=== PATIENT | male | born 1950 | race Caucasian/White ===

== ENCOUNTER 2021-03-02 08:20 | Outpatient (REF) | payer MEDICARE, SELFPAY ==
--- OUTSIDE RECORDS SUMMARY | 2021-03-03 08:25 | XMS_ITS ---
:1950 Author Organization [facility] Address [address] [place] [address] Care Team Providers Name Role Phone Manuel Unavailable Unavailable PROBLEMS Type Condition ICD9-CM Code [id number] Onset Condition SNOMED Code Code Dates Status Problem Hammer toe of M20.42 Active 681901 [id number] left foot ALLERGIES No Known Allergies ENCOUNTERS Encounter Location Date Diagnosis [facility] Feb, Hamme r toe of left [place] M20.[address] [place] [address] and [facility] [place] [facility] corn or callous L84 [facility] [address] [facility], [place] [address] [facility] [address] [facility], Aug, Hyper keratosis 701.1 ; [place] [address] PAIN 729.5 ; Pes planovalgus, congenital 754.6 9 and Tinea pedis 110.4 [facility] [address] [facility], Jun, Hyper keratosis 701.1 ; [place] [address] PAIN 729.5 and P es planovalgus, congenital 754.6 9 IMMUNIZATIONS No Known Immunizations SOCIAL HISTORY Qualifiers Date Former Smoker 10/02/2005 REASON FOR REFERRAL FUNCTIONAL STATUS PLAN OF CARE Activity Details Follow Up 3 Months Reason: VITAL SIGNS Height 66 in 2019 Weight 211.8 lbs 2019 BMI 34.18 kg/m2 2019 Temperature 98.6 degrees Fahrenheit 2019 Heart Rate 69 /min 2019 Respiratory Rate 16 /min 2019 Oximetry 97 % 2019 Blood pressure systolic 130 mm Hg 2019 Blood pressure diastolic 88 mm Hg 2019 MEDICATIONS Medication Instructions Dosage Frequency Start End Duration Statu s Date Date Mupirocin 2 % Externally Three 1 application 8h 5 d ay(s) Active times a day to affected area PROCEDURES No Known procedures RESULTS No Results REASON FOR VISIT 3 month f/u, referral done PT [facility] 04/27, ingrown toenail referral done, last seen by 08/11/07 for f/u on foot pain, referral from Dr.David Suárez , pt states he is here for an ingrown toenail left 4thtoenail , pt states this has been soor for awhile , pt states it has gotten to the point where it doesnt hurt as much now , update chart, f/u foot pain, pain imporoving quite a bit better has a rash using Hydrocortisone on it, foot pain/ramirez kvng per dr mitchell Insurance Providers [facility] Member Patient Patient Patient Patient Patient Subscriber Subscriber Subscriber Group Insurance Plan Plan Plan Plan ID Relationship Address Phone Name Date of ID Name Date of No Type Insurance Insurance Insurance Coverage to Subscriber Address Phone Name Dates MEDICARE 3000 GOFFS MEDICARE self KARLENE 1950 [id number] [facility] [id number] SELF PAY [address] SELF PAY self KARLENE 1950 [place] [address] MEDICARE MEDICAL (GENERAL) HISTORY Type Description Date Medical History ingrown toenail Medical History hyperlipidemia Medical History GERD Medical History arrett's esophagus Medical History hypothyroidism Surgical History colonoscopy Surgical History dental procedure
== END 2021-03-02 08:21 | disposition home or self-care (01) ==
LOC: LBN 08:20
PROVIDERS: PCP Family Medicine; Visit Provider Physician Assistant Medical
DX: L03.011 Cellulitis of right finger (principal)
CPT/HCPCS: 87070; 87205

== ENCOUNTER 2022-12-19 02:03 | Outpatient (CLI) | payer MEDICARE, SELFPAY ==
--- NOTE | 2022-12-19 15:00 | DI.US_ITS ---
APPROVED REPORT EXAM: Comprehensive 2D, Doppler, and color-flow Echocardiogram Patient Location: Out-Patient Recycling Coordinator: Lakshmi Stern RDCS (AE) Indications: high risk medication use, current chemo Other Information Study Quality: Adequate Conclusion Normal left ventricular wall thickness and chamber size. Estimated ejection fraction is 55 to 60%. Wall motion is normal Normal right ventricular size and systolic function Both atria are normal in size There is no structural or hemodynamically significant valvular disease Normal estimated right ventricular systolic pressure 16 mmHg Wall motion Left Ventricle The left ventricle is normal size. The left ventricular systolic function is normal. The left ventric ular ejection fraction is within the normal range. There is normal left ventricular wall thickness. T here is normal LV segmental wall motion. There is no ventricular septal defect visualized. LVEF is 56 %. Right Ventricle The right ventricle is normal size. The right ventricular systolic function is normal. Atria The left atrium size is normal. The right atrium size is normal. The RVSP is 16.1 mmHg. The interatri al septum is intact with no evidence for an atrial septal defect. Aortic Valve The aortic valve is normal in structure. Aortic valve is trileaflet. There is no aortic valvular sten osis. No aortic regurgitation is present. Mitral Valve The mitral valve is normal in structure. No evidence of mitral valve stenosis. Mild mitral regurgitat ion. Tricuspid Valve The tricuspid valve is normal in structure. There is no tricuspid valve stenosis. Trace tricuspid reg urgitation. Pulmonic Valve The pulmonary valve is normal in structure. There is no pulmonic valvular stenosis. Trace pulmonic re gurgitation. Great Vessels The aortic root is normal in size. The ascending aorta is normal in size. IVC is normal in size and c ollapses >50% with inspiration. Pericardium There is no pericardial effusion. 2D Dimensions IVSD d PLAX 0.92 cm M: 0.6-1.2 LV Vol A2C d MOD 121.3 mL LVPW d PLAX 0.92 cm M: 0.6 - 1.2 LV Vol A4C d MOD 78.1 mL LVID d PLAX 4.98 cm M: 4.2 - 5.8 LA vol/ BSA A4C s A-L 14.5 mL/m2 LVDs 3.55 cm M: 2.5 - 4.0 LA Area A4C s MOD 11.20 cm2 Ao Root d 3.39 cm M: 3.1 - 3.7 LV EF A4C MOD 57.8 % Ao Asc Diam d 3.48 cm M: 2.6 - 3.4 LV EF A2C MOD 55.8 % LV EF Teichholz 54.6 % LV EF Biplane MOD 54.5 % LVEF (Thakkar's) 54.50 % M: 52 - 72 SV 54.90 mL LV Volume 78.36 mL M: 62 - 150 SV Index 30.52 mL/m2 LV Volume Index 43.53 mL/m2 M: 34 - 74 LV Vol Biplane MOD 100.7 mL FS 28.35 % M-Mode TAPSE 1.43 cm (M/F) >1.7 LV Diastology MV E' medial 0.042 (>0.07 m/s) E/A Ratio 0.9 LV E/e MED 11.70 (<14) MV E Vmax 0.49 (0.4-1.3 m/s) MV E' lateral 0.075 (>0.1 m/s) MV A Vmax 0.55 (0.4-1.3 m/s) LV E/e LAT 6.50 (<14) MV E/A Ratio 0.83 MV E/E' medial 11.71 MV E/E' lateral 6.53 Aortic Valve LVOT Area 3.61 cm2 AoV Area Vmax 3.07 cm2 LVOT Vmax 0.92 m/s AoV Area/ BSA (Vmax) 1.71 cm2/m2 LVOT Mean Perry. 0.60 m/s LISBET Mean Perry. 2.94 cm2 LVOT Peak Grad 3.4 mmHg LISBET Mean Perry. Index 1.63 cm2/m2 LVOT Mean Grad 1.7 mmHg LVOT VTI 0.188 m LVOT Diam s 2.10 cm AoV Vmax 1.08 m/s Velocity Ratio 0.85 AoV Mean Perry. 0.74 m/s AoV Peak Grad 4.7 mmHg LVOT SV 67.80 mL AoV Mean Grad 2.5 mmHg AoV VTI 0.183 m AoV Area VTI 3.70 cm2 AoV Area/ BSA (VTI) 2.05 cm/m2 Mitral Valve MV DT 307 (160-240 msec) MV PHT 89 msec MV Area PHT 2.47 cm2 Pulmonary Valve PV Vmax 1.16 (0.5-1.5 m/s) RVOT Peak Gr. 1.59 mmHg PV Peak Grad 5.4 mmHg RVOT Mean Gr. 0.70 mmHg PV Mean Grad 2.4 mmHg RVOT VTI 0.122 m PV VTI 0.202 m RVOT Vmax 0.63 m/s Tricuspid Valve TR Peak Grad 13.0 mmHg TR Vmax 1.81 m/s RA Pressure 3.00 mmHg RVSP (TR) 16.1 mmHg
== END 2022-12-19 02:23 ==
LOC: DI 02:04
PROVIDERS: PCP Family Medicine; Visit Provider Internal Medicine Hematology & Oncology
DX: Z79.899 Other long term (current) drug therapy (principal)
CPT/HCPCS: 93306

== ENCOUNTER 2022-12-24 17:21 | Emergency (ER) | payer MEDICARE, SELFPAY ==
[2022-12-24 17:30] VITALS: BP 122/71; PULSE 100; RESP 18; TEMP 37.4; O2SAT 96
--- NOTE | 2022-12-24 17:30 | RT.EKG_ITS ---
APPROVED REPORT Exam: Resting ECG Reason for Exam: fever Patient Location: E HR:95 bpm ECG Measurements Heart Rate 95 AXIS MN 173 P 4 QRSd 91 QRS -28 QT 337 T 32 QTc 424 Conclusion Sinus rhythm...normal P axis, V-rate 60- 99
--- NOTE | 2022-12-24 17:30 | DI.RAD_ITS ---
Exam(s) XR PORTABLE CHEST AP EXAM: XR PORTABLE CHEST AP CLINICAL HISTORY: fever. TECHNIQUE: 2D digital imaging was performed. COMPARISON: No exams were available for comparison FINDINGS: Single AP portable view. Distal tip of the right-sided Port-A-Cath is in the right atrium. Heart size is upper normal. The mediastinum is not widened. There are increased markings throughout both lung holliday but no air bronchograms. No pleural effusio ns. No pulmonary edema. No pneumothorax. No pulmonary nodules evident. IMPRESSION: Increased markings throughout both lung holliday no confluent infiltrates evident. No pleural effusion s. Recommend nonportable PA and lateral views when clinically possible. DATA REPOSITORY: RADIATION DOSE DELIVERED:
--- NOTE | 2022-12-24 17:42 | ED.GENADUL_ITS ---
Discharge Plan Disposition Patient Disposition: Home Condition: Improving Discharge Details Clinical Impression: Fever Primary Care Provider: Williams Suárez ED Provider: Harjinder Hand Meds and New Rx's Prescriptions: Continued zolpidem [Ambien] 10 mg Tablet 10 mg PO HS ondansetron 4 mg Tablet,Disintegrating 4 mg PO DAILY oxycodone 5 mg Tablet 5 mg PO PRN PRN Discharge Instructions Instructions: Fever in Adults (ED) Discharge Data Discharge Date/Time-TO BE ENTERED AT DEPARTURE: 12/24/22 20:17 Discharge Physician: Harjinder Hand Medical Decision Making ECG Data Attestation: I personally reviewed and interpreted this ECG (s) as follows: (No infiltrate) Prior ECG tracings: available for review MDM Narrative Medical decision making narrative: Patient presents to the emergency department with a low-grade fever he states he had at home which was 100.8. He has been afebrile here in the emergency department and causes and appear for he received chemotherapy for esophageal cancer 2 weeks ago they are concerned he may be neutropenic. Labs were obtained and his white count is normal at 4.62 and he is not neutropenic. He has been afebrile in the emergency department and x-ray urinalysis labs and lactic acid are all within normal limits. Medical Records Attestation: I reviewed the patient's medical records. Lab Data Attestation: I reviewed the patient's lab results. Lab results narrative: As above the patient is done Labs are unremarkable 12/24/22 18:03 12/24/22 18:03 Labs: Lab Results 12/24/22 12/24/22 12/24/22 Range/Units 18:03 18:03 18:03 WBC 4.62 (4.4-10.8) 10^3/uL RBC 4.17 L (4.36-5.78) 10^6/uL Hgb 12.9 L (13.5-17.5) g/dL Hct 38.5 L (40.0-50.0) % MCV 92 (80-95) fL MCH 30.9 (27.0-33.0) pg MCHC 33.5 (32.0-36.0) % RDW 13.9 (11.8-14.1) % Plt Count 80 L (130-400) 10^3/uL MPV 12.0 H (8.0-11.0) fL Immature Gran % 0.2 Neutrophils % 73.6 Lymphocytes % 15.2 Monocytes % 9.1 Eosinophils % 1.5 Basophils % 0.4 Nucleated RBC % 0.0 (0.0-0.3) % Absolute Neutrophils 3.40 (1.2-6.7) 10^3/uL Absolute Lymphocytes 0.70 L (1.2-3.4) 10^3/uL Absolute Monocytes 0.42 (0.1-0.8) 10^3/uL Absolute Eosinophils 0.07 (0.0-0.7) 10^3/uL Absolute Basophils 0.02 (0.0-0.2) 10^3/uL PT (9.3-11.0) sec INR (0.9-1.1) VBG Lactate 1.6 H (0.6-1.4) mmol/L Sodium 139 (136-145) mmol/L Potassium 3.6 (3.5-5.1) mmol/L Chloride 103 (98-107) mmol/L Carbon Dioxide 29.1 (21.0-32.0) mmol/L Anion Gap 6.9 (3-11) mmol/L BUN 11 (7-18) mg/dL Creatinine 1.1 (0.70-1.30) mg/dL Est GFR (CKD-EPI 2020) 72.22 (mL/min/1.73m2) Glucose 105 (74-106) mg/dL Calcium 9.7 (8.5-10.1) mg/dL Magnesium 2.0 (1.8-2.4) mg/dL Total Bilirubin 0.5 (0.2-1.0) mg/dL AST 34 (15-37) U/L ALT 30 (16-63) U/L Alkaline Phosphatase 99 (46-116) U/L Troponin I < 50 (<or=60) ng/L Total Protein 7.6 (6.4-8.2) g/dL Albumin 3.2 L (3.4-5.0) g/dL Urine Color (Yellow) Urine Clarity (Clear) Urine pH (5-8) Ur Specific [place] (1.005-1.025) Urine Protein (Negative) mg/dL Urine Ketones (Negative) mg/dL Urine Blood (Negative) Urine Nitrite (Negative) Urine Bilirubin (Negative) Urine Urobilinogen (Up to 0.2) mg/dL Ur Leukocyte Esterase (Negative) Urine Glucose (Negative) mg/dL 12/24/22 12/24/22 12/24/22 Range/Units 18:03 19:30 19:38 WBC (4.4-10.8) 10^3/uL RBC (4.36-5.78) 10^6/uL Hgb (13.5-17.5) g/dL Hct (40.0-50.0) % MCV (80-95) fL MCH (27.0-33.0) pg MCHC (32.0-36.0) % RDW (11.8-14.1) % Plt Count (130-400) 10^3/uL MPV (8.0-11.0) fL Immature Gran % Neutrophils % Lymphocytes % Monocytes % Eosinophils % Basophils % Nucleated RBC % (0.0-0.3) % Absolute Neutrophils (1.2-6.7) 10^3/uL Absolute Lymphocytes (1.2-3.4) 10^3/uL Absolute Monocytes (0.1-0.8) 10^3/uL Absolute Eosinophils (0.0-0.7) 10^3/uL Absolute Basophils (0.0-0.2) 10^3/uL PT 10.4 (9.3-11.0) sec INR 1.0 (0.9-1.1) VBG Lactate Cancelled (0.6-1.4) mmol/L Sodium (136-145) mmol/L Potassium (3.5-5.1) mmol/L Chloride (98-107) mmol/L Carbon Dioxide (21.0-32.0) mmol/L Anion Gap (3-11) mmol/L BUN (7-18) mg/dL Creatinine (0.70-1.30) mg/dL Est GFR (CKD-EPI 2020) (mL/min/1.73m2) Glucose (74-106) mg/dL Calcium (8.5-10.1) mg/dL Magnesium (1.8-2.4) mg/dL Total Bilirubin (0.2-1.0) mg/dL AST (15-37) U/L ALT (16-63) U/L Alkaline Phosphatase (46-116) U/L Troponin I (<or=60) ng/L Total Protein (6.4-8.2) g/dL Albumin (3.4-5.0) g/dL Urine Color Yellow (Yellow) Urine Clarity Clear (Clear) Urine pH 6.5 (5-8) Ur Specific [place] 1.015 (1.005-1.025) Urine Protein Negative (Negative) mg/dL Urine Ketones Negative (Negative) mg/dL Urine Blood Negative (Negative) Urine Nitrite Negative (Negative) Urine Bilirubin Negative (Negative) Urine Urobilinogen 0.2 (Up to 0.2) mg/dL Ur Leukocyte Esterase Negative (Negative) Urine Glucose Negative (Negative) mg/dL 12/24/22 Range/Units 20:38 WBC (4.4-10.8) 10^3/uL RBC (4.36-5.78) 10^6/uL Hgb (13.5-17.5) g/dL Hct (40.0-50.0) % MCV (80-95) fL MCH (27.0-33.0) pg MCHC (32.0-36.0) % RDW (11.8-14.1) % Plt Count (130-400) 10^3/uL MPV (8.0-11.0) fL Immature Gran % Neutrophils % Lymphocytes % Monocytes % Eosinophils % Basophils % Nucleated RBC % (0.0-0.3) % Absolute Neutrophils (1.2-6.7) 10^3/uL Absolute Lymphocytes (1.2-3.4) 10^3/uL Absolute Monocytes (0.1-0.8) 10^3/uL Absolute Eosinophils (0.0-0.7) 10^3/uL Absolute Basophils (0.0-0.2) 10^3/uL PT (9.3-11.0) sec INR (0.9-1.1) VBG Lactate (0.6-1.4) mmol/L Sodium (136-145) mmol/L Potassium (3.5-5.1) mmol/L Chloride (98-107) mmol/L Carbon Dioxide (21.0-32.0) mmol/L Anion Gap (3-11) mmol/L BUN (7-18) mg/dL Creatinine (0.70-1.30) mg/dL Est GFR (CKD-EPI 2020) (mL/min/1.73m2) Glucose (74-106) mg/dL Calcium (8.5-10.1) mg/dL Magnesium (1.8-2.4) mg/dL Total Bilirubin (0.2-1.0) mg/dL AST (15-37) U/L ALT (16-63) U/L Alkaline Phosphatase (46-116) U/L Troponin I Cancelled (<or=60) ng/L Total Protein (6.4-8.2) g/dL Albumin (3.4-5.0) g/dL Urine Color (Yellow) Urine Clarity (Clear) Urine pH (5-8) Ur Specific [place] (1.005-1.025) Urine Protein (Negative) mg/dL Urine Ketones (Negative) mg/dL Urine Blood (Negative) Urine Nitrite (Negative) Urine Bilirubin (Negative) Urine Urobilinogen (Up to 0.2) mg/dL Ur Leukocyte Esterase (Negative) Urine Glucose (Negative) mg/dL ECG Data Attestation: I personally reviewed and interpreted this ECG (s) as follows: (No infiltrate) ECG interpretation date: 12/24/22 Prior ECG tracings: available for review Interpretation: Normal sinus rhythm heart rate of [address]-T changes HPI General Date/Time Provider Initiated Documentation: 12/24/22 17:38 . HPI Narrative: Patient presents emergency department brought in by the after he had a low- grade fever at home. Patient is a cancer patient with metastatic esophageal cancer who received chemotherapy 2 weeks ago. He had a low-grade fever of 99.7 earlier today the called the oncologist and the oncologist called him back and told to come to the emergency department for evaluation. He denies any cough denies any shortness of breath denies any upper respiratory symptoms denies any urinary symptoms. He states that after the chemo he has been able to eat better. Related Data Home Medications Medication Instructions Recorded Confirmed ondansetron 4 mg disintegrating 4 mg PO DAILY 12/24/22 12/24/22 tablet oxycodone 5 mg tablet 5 mg PO PRN PRN 12/24/22 12/24/22 zolpidem 10 mg tablet (Ambien) 10 mg PO HS 12/24/22 12/24/22 General Stated Complaint: Fever SHAYNA: 3 Review of Systems All systems reviewed & are unremarkable except as noted in HPI and below Constitutional Constitutional: Reports as per HPI and Reports chills Eyes Eyes: Reports as per HPI and Reports system reviewed and no additional complaints, except as documented ENT Ears, Nose, Mouth, and Throat: Reports system reviewed and no additional compla ints, except as documented Cardiovascular Cardiovascular: Reports as per HPI and Reports system reviewed and no additional complaints, except as documented Respiratory Respiratory: Reports as per HPI and Reports system reviewed and no additional complaints, except as documented Gastrointestinal Gastrointestinal: Reports as per HPI and Reports system reviewed and no additional complaints, except as documented Genitourinary Genitourinary: Reports system reviewed and no additional complaints, except as documented Musculoskeletal Musculoskeletal: Reports system reviewed and no additional complaints, except as documented Neurologic Neurologic: Reports system reviewed and no additional complaints, except as documented Psychiatric Psychiatric: Reports system reviewed and no additional complaints, except as documented Endocrine Endocrine: Reports system reviewed and no additional complaints, except as d ocumented [facility] All Active Problems (Updated 12/24/22 @ 20:00 by Harjinder Hand MD) Fever (Acute) Social History Smoking/Tobacco Use Status: Never Smoking risk assessment performed?: Yes Substance use type: does not use Do you feel safe at home: Yes Do you feel safe in your relationship?: Yes Exam Narrative Exam Narrative: Exam; vitals signs as reported above Constitutional; In no acute distress, afebrile General: cooperative, healthy appearing, comfortable and no acute distress HENMT: Head: normal to inspection, no palpable skull fracture and normocephalic Eyes: l: appearance normal, both eyes and all related structures Pupils: PERRL EOM: EOM intact bilaterally Direct ophthalmoscopy: normal light reflex, normal conjunctiva, normal visual acuity Neck no JVD, supple Neck: normal visual inspection, full ROM and no lymphadenopathy Chest Chest: normal inspection of the chest Respiratory : normal respiratory effort and able to speak in complete sentences Cardio Rate: regular rate Rhythm: regular rhythm normal heart sounds S1 and S2 no murmurs, gallops, or rubs GI Inspection: normal to inspection, normal bowel sounds, soft, non tender, non distended, no organomegally Back/Spine/ no CVA tenderness Thoracic/Lumbar Spine: no tenderness or deformities Skin no rashes or lesions Neuro: patient alert and no meningeal signs, Cranial Nerves: CN's II-XI intact bilaterally, Cognition: normal cognition, Speech: speech normal, Gait: normal gait, Depp tendon reflexes normal 2+ Extremities, no edema, full range of motion, normal strength Course Patient presents to the emergency department because the oncologist told him if he had a fever to come in for he received chemotherapy for esophageal cancer 2 weeks ago. He states that he states that he feels fine does have any other symptoms except for a low-grade fever which was 100.8 at home but here in the emergency department normal at 37.4 ?C Reevaluation(s) Time: 19:30 Reevaluation: Patient still feels good with no problems sepsis protocol was initiated with blood cultures IV fluids at 30 cc/kg and lactic acid but the first lactic acid is normal at 1.6 patient has a white count of 4.62 and of that 73% are neutrophils so he is not neutropenic. Vital Signs Vital signs: Vital Signs Temperature 37.4 C 12/24/22 17:30 Pulse 100 H 12/24/22 17:30 Respiratory Rate 18 12/24/22 17:30 Blood Pressure 122/71 12/24/22 17:30 Pulse Oximetry 96 12/24/22 17:30 Temperature 37.4 C 12/24/22 17:30 Pulse 100 H 12/24/22 17:30 Respiratory Rate 18 12/24/22 17:30 Blood Pressure 122/71 12/24/22 17:30 Blood Pressure Position Sitting 12/24/22 17:30 Pulse Oximetry 96 12/24/22 17:30 Oxygen Delivery Method Room Air 12/24/22 17:30 Oxygen Flow Rate 0 12/24/22 17:30 Lab/Test Results Lab/Test Results: 12/24/22 17:39 Blood Blood Culture - Pending 12/24/22 17:39 Blood Blood Culture - Pending
[2022-12-24 18:11] LABS: Lactate 1.6 mmol/L (0.6-1.4)
[2022-12-24 18:14] LABS: Abs Immature Grans 0.01 10^3/uL (0.0-0.06); Absolute Basophil Count 0.02 10^3/uL (0.0-0.2); Absolute Eosinophil Count 0.07 10^3/uL (0.0-0.7); Absolute Monocyte Count 0.42 10^3/uL (0.1-0.8); Basophils % 0.4; Eosinophils % 1.5; HCT 38.5 % (40.0-50.0); HGB 12.9 g/dL (13.5-17.5); Immature Grans % 0.2; Lymphocytes % 15.2; MCH 30.9 pg (27.0-33.0); MCHC 33.5 % (32.0-36.0); MCV 92 fL (80-95); Monocytes % 9.1; Neutrophils % 73.6; RBC 4.17 10^6/uL (4.36-5.78); RDW 13.9 % (11.8-14.1); RDW-SD 46.8 fL; WBC 4.62 10^3/uL (4.4-10.8)
[2022-12-24 18:24] LABS: Prothrombin Time 10.4 sec (9.3-11.0)
[2022-12-24 18:30] LABS: Platelet Count 80 10^3/uL (130-400)
[2022-12-24 18:31] LABS: ALT 30 U/L (16-63); AST 34 U/L (15-37); Albumin 3.2 g/dL (3.4-5.0); Alkaline Phosphatase 99 U/L (46-116); Anion Gap 6.9 mmol/L (3-11); BUN 11 mg/dL (7-18); Bilirubin, Total 0.5 mg/dL (0.2-1.0); CO2 29.1 mmol/L (21.0-32.0); CREATININE 1.1 mg/dL (0.70-1.30); Calcium 9.7 mg/dL (8.5-10.1); Chloride 103 mmol/L (98-107); Estimated GFR 72.22 (mL/min/1.73m2); Glucose 105 mg/dL (74-106); Potassium 3.6 mmol/L (3.5-5.1); Sodium 139 mmol/L (136-145); Total Protein 7.6 g/dL (6.4-8.2); Troponin I < 50 ng/L (<or=60)
[2022-12-24] MEDS: Normal Saline 1,000 ML 1000 ML IV (19:04)
--- NOTE | 2022-12-24 19:08 | DI.VRAD_ITS ---
PROCEDURE INFORMATION: Exam: XR Chest Exam date and time: 12/24/2022 6:44 PM Age: 72 years old Clinical indication: Prior surgery; Surgery date: 1-6 months; Surgery type: Port placed; Patient HX: Fever, treatment for cancer TECHNIQUE: Imaging protocol: Radiologic exam of the chest. Views: 1 view. COMPARISON: CR LEFT SHOULDER COMPLETE 12/23/2016 9:19 AM FINDINGS: Tubes, catheters and devices: Right IJ infusion port is in place with tip near the cavoatrial junction. Lungs: Unremarkable. No consolidation. Pleural spaces: Unremarkable. No pleural effusion. No pneumothorax. Heart/Mediastinum: Unremarkable. No cardiomegaly. Bones/joints: Mild degenerative changes noted in the spine and shoulders. IMPRESSION: No acute abnormality Dictated and Authenticated by: Seth Salomon MD. Ordering:ANA Grande MD
[2022-12-24 19:20] VITALS: BP 112/70; PULSE 84; TEMP 37.4; O2SAT 98
[2022-12-24 19:39] LABS: Bilirubin Negative (Negative); Blood Negative (Negative); Clarity Clear (Clear); Glucose Negative (Negative); Ketones Negative (Negative); Leukocyte Esterase Negative (Negative); Nitrite Negative (Negative); Specific Gravity 1.015 (1.005-1.025); Urobilinogen 0.2 mg/dL (Up to 0.2); pH 6.5 (5-8)
[2022-12-24 20:15] VITALS: BP 112/78; RESP 18; O2SAT 98
[2022-12-24] MEDS: Heparin 500 UNITS/5 ML SYRINGE (20:17)
== END 2022-12-24 20:17 | disposition home or self-care (01) ==
PROVIDERS: Emergency Provider Emergency Medicine Emergency Medical Services; PCP Family Medicine
DX: R50.9 Fever, unspecified (principal); C15.9 Malignant neoplasm of esophagus, unspecified
CPT/HCPCS: 80053; 87040; 87426; 93005; 96360; 99284; 71045; 81003; 83605; 83735; 84484; 85025; 85610; 93010

== ENCOUNTER 2022-12-27 00:56 | Outpatient (RCR) | payer MEDICARE, SELFPAY ==
[2022-12-13 08:18] LABS: Abs Immature Grans 0.03 10^3/uL (0.0-0.06); Absolute Basophil Count 0.06 10^3/uL (0.0-0.2); Absolute Eosinophil Count 0.11 10^3/uL (0.0-0.7); Absolute Lymphocyte Count 1.09 10^3/uL (1.2-3.4); Absolute Monocyte Count 0.72 10^3/uL (0.1-0.8); Absolute Neutrophil Count 5.32 10^3/uL (1.2-6.7); Basophils % 0.8; Eosinophils % 1.5; HCT 35.2 % (40.0-50.0); HGB 11.6 g/dL (13.5-17.5); Immature Grans % 0.4; Lymphocytes % 14.9; MCH 30.9 pg (27.0-33.0); MCV 94 fL (80-95); Monocytes % 9.8; Neutrophils % 72.6; Platelet Count 129 10^3/uL (130-400); RBC 3.76 10^6/uL (4.36-5.78); RDW 14.3 % (11.8-14.1); RDW-SD 48.8 fL; WBC 7.33 10^3/uL (4.4-10.8)
[2022-12-13] MEDS: Normal Saline Flush 10 ML SYR IVP (08:24)
[2022-12-13 08:36] LABS: ALT 20 U/L (16-63); AST 26 U/L (15-37); Albumin 2.6 g/dL (3.4-5.0); Alkaline Phosphatase 91 U/L (46-116); Anion Gap 5.4 mmol/L (3-11); BUN 15 mg/dL (7-18); Bilirubin, Total 0.5 mg/dL (0.2-1.0); CO2 28.6 mmol/L (21.0-32.0); Calcium 9.3 mg/dL (8.5-10.1); Chloride 107 mmol/L (98-107); Estimated GFR 80.97 (mL/min/1.73m2); Glucose 159 mg/dL (74-106); Potassium 3.8 mmol/L (3.5-5.1); Sodium 141 mmol/L (136-145); Total Protein 6.7 g/dL (6.4-8.2)
[2022-12-13 20:21] LABS: CEA 162.2 ng/mL (See Note)
[2022-12-15] MEDS: Normal Saline Flush 10 ML SYR IVP (10:08)
[2022-12-15] MEDS: Heparin 500 UNITS/5 ML SYRINGE IV (10:08)
[2022-12-27] MEDS: Normal Saline Flush 10 ML SYR IVP (08:10)
[2022-12-27 08:20] LABS: Abs Immature Grans 0.01 10^3/uL (0.0-0.06); Absolute Basophil Count 0.02 10^3/uL (0.0-0.2); Absolute Eosinophil Count 0.07 10^3/uL (0.0-0.7); HCT 33.1 % (40.0-50.0); MCH 30.3 pg (27.0-33.0); MCHC 33.2 % (32.0-36.0); MCV 91 fL (80-95); MPV 12.1 fL (8.0-11.0); RBC 3.63 10^6/uL (4.36-5.78); RDW 14.2 % (11.8-14.1); RDW-SD 47.4 fL; WBC 2.21 10^3/uL (4.4-10.8)
[2022-12-27 08:41] LABS: ALT 25 U/L (16-63); AST 30 U/L (15-37); Albumin 2.5 g/dL (3.4-5.0); Alkaline Phosphatase 76 U/L (46-116); Anion Gap 6.7 mmol/L (3-11); BUN 14 mg/dL (7-18); Bilirubin, Total 0.5 mg/dL (0.2-1.0); CO2 27.3 mmol/L (21.0-32.0); Calcium 8.5 mg/dL (8.5-10.1); Chloride 104 mmol/L (98-107); Estimated GFR 80.97 (mL/min/1.73m2); Glucose 112 mg/dL (74-106); Potassium 3.5 mmol/L (3.5-5.1); Sodium 138 mmol/L (136-145); Total Protein 6.3 g/dL (6.4-8.2)
[2022-12-27 08:48] LABS: Absolute Lymphocyte Count 0.86 10^3/uL (1.2-3.4); Absolute Neutrophil Count 1.06 10^3/uL (1.2-6.7); Atypical Lymphocytes % 4; Bands % 0; Platelet Count 59 10^3/uL (130-400)
[2022-12-27 08:49] LABS: Diff Comment Manual Differential; RBC Morphology Normal
[2022-12-27 22:41] LABS: CEA 196.2 ng/mL (See Note)
== END 2023-01-01 23:59 | disposition home or self-care (01) ==
LOC: INF 00:56
PROVIDERS: PCP Family Medicine; Visit Provider Internal Medicine Hematology & Oncology
DX: C15.9 Malignant neoplasm of esophagus, unspecified (principal); Z45.2 Encounter for adjustment and management of vascular access device
CPT/HCPCS: 36591; 80053; 96523; 82378; 85025

== ENCOUNTER 2023-01-02 18:27 | Emergency (ER) | payer MEDICARE, SELFPAY ==
[2023-01-02 18:32] VITALS: BP 116/74; PULSE 89; RESP 18; TEMP 36.9; O2SAT 96
--- NOTE | 2023-01-02 19:03 | ED.GENADUL_ITS ---
Discharge Plan Disposition Patient Disposition: Home Condition: Stable Discharge Details Clinical Impression: Fever Primary Care Provider: Williams Suárez ED Provider: Mariya Walker Home Meds and New Rx's Prescriptions: Continued zolpidem [Ambien] 10 mg Tablet 10 mg PO HS ondansetron 4 mg Tablet,Disintegrating 4 mg PO DAILY oxycodone 5 mg Tablet 5 mg PO PRN PRN Discharge Instructions Additional Instructions: Continue to monitor your pump Follow-up with your oncologist and return earlier should you have new or worsening complaints Discharge Data Discharge Date/Time-TO BE ENTERED AT DEPARTURE: 01/02/23 19:49 Medical Decision Making Patient denies any current complaints, he denies any fever, chills, chest pain, shortness of breath, or any additional complaints at this time His chemotherapy pump has been turned off and is not infusing chemotherapy at this time The machine was evaluated with nursing staff and we unclamped the clamps and restarted the infusion, it was observed for approximately 1 hour and appears to be infusing appropriately We will refer back to oncology for further treatment HPI General Date/Time Provider Initiated Documentation: 01/02/23 18:37 . HPI Narrative: This 72-year-old male with history of esophageal cancer receiving chemotherapy presents to the emergency department for concern regarding his chemotherapy infusion. It was set up in the oncologist office today and tonight when home health checked it the clamps were clamped and she did not feel as though the machine was infusing appropriately. He was sent to the emergency department for additional evaluation. Related Data Home Medications Medication Instructions Recorded Confirmed ondansetron 4 mg disintegrating 4 mg PO DAILY 12/24/22 12/24/22 tablet oxycodone 5 mg tablet 5 mg PO PRN PRN 12/24/22 12/24/22 zolpidem 10 mg tablet (Ambien) 10 mg PO HS 12/24/22 12/24/22 General Stated Complaint: GenMedical SHAYNA: 4 PFSH All Active Problems (Updated 01/02/23 @ 19:37 by PITA Frank) Fever (Acute) Social History Smoking/Tobacco Use Status: Never Smoking risk assessment performed?: Yes Substance use type: does not use Do you feel safe at home: Yes Do you feel safe in your relationship?: Yes Course Vital Signs Vital signs: Vital Signs Temperature 36.9 C 01/02/23 18:32 Pulse 89 01/02/23 18:32 Respiratory Rate 18 01/02/23 18:32 Blood Pressure 116/74 01/02/23 18:32 Pulse Oximetry 96 01/02/23 18:32 Temperature 36.9 C 01/02/23 18:32 Temperature Source Oral 01/02/23 18:32 Pulse 89 01/02/23 18:32 Respiratory Rate 18 01/02/23 18:32 Blood Pressure 116/74 01/02/23 18:32 Blood Pressure Position Sitting 01/02/23 18:32 Pulse Oximetry 96 01/02/23 18:32 Oxygen Delivery Method Room Air 01/02/23 18:32 Oxygen Flow Rate 0 01/02/23 18:32 Pain Level 0 01/02/23 18:32
[2023-01-02 19:34] VITALS: RESP 15
== END 2023-01-02 19:49 | disposition home or self-care (01) ==
PROVIDERS: Emergency Provider Physician Assistant; PCP Family Medicine
DX: T85.695A Other mechanical complication of other nervous system device, implant or graft, initial encounter (principal); R50.9 Fever, unspecified
CPT/HCPCS: 36591; 80053; 99283; 82378; 85025

== ENCOUNTER 2023-01-26 00:01 | Outpatient (RCR) | payer MEDICARE, SELFPAY ==
[2023-01-02] MEDS: Normal Saline Flush 10 ML SYR IVP (08:22)
[2023-01-02 08:52] LABS: Abs Immature Grans 0.01 10^3/uL (0.0-0.06); Absolute Basophil Count 0.04 10^3/uL (0.0-0.2); Absolute Eosinophil Count 0.14 10^3/uL (0.0-0.7); Absolute Lymphocyte Count 1.34 10^3/uL (1.2-3.4); Absolute Monocyte Count 0.71 10^3/uL (0.1-0.8); Absolute Neutrophil Count 1.63 10^3/uL (1.2-6.7); Eosinophils % 3.6; HCT 32.7 % (40.0-50.0); HGB 10.7 g/dL (13.5-17.5); Immature Grans % 0.3; Lymphocytes % 34.6; MCHC 32.7 % (32.0-36.0); MCV 92 fL (80-95); MPV 11.7 fL (8.0-11.0); Monocytes % 18.3; Neutrophils % 42.2; Platelet Count 145 10^3/uL (130-400); RBC 3.57 10^6/uL (4.36-5.78); RDW 14.3 % (11.8-14.1); RDW-SD 48.2 fL; WBC 3.87 10^3/uL (4.4-10.8)
[2023-01-02 09:09] LABS: ALT 24 U/L (16-63); AST 28 U/L (15-37); Albumin 2.3 g/dL (3.4-5.0); Alkaline Phosphatase 87 U/L (46-116); Anion Gap 5.4 mmol/L (3-11); BUN 10 mg/dL (7-18); Bilirubin, Total 0.3 mg/dL (0.2-1.0); CO2 30.6 mmol/L (21.0-32.0); CREATININE 0.9 mg/dL (0.70-1.30); Calcium 9.2 mg/dL (8.5-10.1); Chloride 108 mmol/L (98-107); Estimated GFR 91.88 (mL/min/1.73m2); Glucose 106 mg/dL (74-106); Potassium 3.6 mmol/L (3.5-5.1); Sodium 144 mmol/L (136-145); Total Protein 6.5 g/dL (6.4-8.2)
[2023-01-10 09:09] LABS: CEA 311.9 ng/mL (See Note)
[2023-01-17] MEDS: Normal Saline Flush 10 ML SYR IVP (07:53)
[2023-01-17 08:13] LABS: Absolute Basophil Count 0.03 10^3/uL (0.0-0.2); Absolute Eosinophil Count 0.13 10^3/uL (0.0-0.7); Absolute Lymphocyte Count 0.85 10^3/uL (1.2-3.4); Absolute Neutrophil Count 0.65 10^3/uL (1.2-6.7); Basophils % 1.4; HCT 31.7 % (40.0-50.0); HGB 10.5 g/dL (13.5-17.5); Lymphocytes % 39.4; MCH 30.8 pg (27.0-33.0); MCHC 33.1 % (32.0-36.0); MCV 93 fL (80-95); MPV 11.1 fL (8.0-11.0); Monocytes % 23.1; Neutrophils % 30.1; RBC 3.41 10^6/uL (4.36-5.78); RDW 15.4 % (11.8-14.1); RDW-SD 52.1 fL; WBC 2.16 10^3/uL (4.4-10.8)
[2023-01-17 08:29] LABS: ALT 35 U/L (16-63); AST 34 U/L (15-37); Albumin 2.6 g/dL (3.4-5.0); Alkaline Phosphatase 93 U/L (46-116); Anion Gap 6.4 mmol/L (3-11); BUN 9 mg/dL (7-18); Bilirubin, Total 0.7 mg/dL (0.2-1.0); CO2 28.6 mmol/L (21.0-32.0); CREATININE 0.9 mg/dL (0.70-1.30); Calcium 8.6 mg/dL (8.5-10.1); Chloride 107 mmol/L (98-107); Estimated GFR 91.88 (mL/min/1.73m2); Glucose 94 mg/dL (74-106); Potassium 3.3 mmol/L (3.5-5.1); Sodium 142 mmol/L (136-145); Total Protein 6.3 g/dL (6.4-8.2)
[2023-01-17 08:36] LABS: Diff Comment Diff Reviewed; Platelet Count 57 10^3/uL (130-400); RBC Morphology Normal
[2023-01-17 21:11] LABS: CEA 67.3 ng/mL (See Note)
[2023-01-24] MEDS: Normal Saline Flush 10 ML SYR IVP (08:16)
[2023-01-24 08:24] LABS: Abs Immature Grans 0.01 10^3/uL (0.0-0.06); Absolute Basophil Count 0.05 10^3/uL (0.0-0.2); Absolute Eosinophil Count 0.23 10^3/uL (0.0-0.7); Absolute Lymphocyte Count 0.98 10^3/uL (1.2-3.4); Absolute Monocyte Count 0.65 10^3/uL (0.1-0.8); Basophils % 1.6; Eosinophils % 7.1; HCT 31.7 % (40.0-50.0); HGB 10.6 g/dL (13.5-17.5); Immature Grans % 0.3; Lymphocytes % 30.4; MCH 30.8 pg (27.0-33.0); MCHC 33.4 % (32.0-36.0); MCV 92 fL (80-95); MPV 11.7 fL (8.0-11.0); Monocytes % 20.2; Neutrophils % 40.4; Platelet Count 114 10^3/uL (130-400); RBC 3.44 10^6/uL (4.36-5.78); RDW 16.3 % (11.8-14.1); RDW-SD 54.4 fL; WBC 3.22 10^3/uL (4.4-10.8)
[2023-01-24 08:37] LABS: ALT 31 U/L (16-63); AST 32 U/L (15-37); Albumin 2.6 g/dL (3.4-5.0); Alkaline Phosphatase 96 U/L (46-116); Anion Gap 6.5 mmol/L (3-11); BUN 9 mg/dL (7-18); Bilirubin, Total 0.5 mg/dL (0.2-1.0); CO2 28.5 mmol/L (21.0-32.0); Calcium 8.8 mg/dL (8.5-10.1); Chloride 108 mmol/L (98-107); Estimated GFR 80.97 (mL/min/1.73m2); Glucose 99 mg/dL (74-106); Potassium 3.4 mmol/L (3.5-5.1); Sodium 143 mmol/L (136-145); Total Protein 6.4 g/dL (6.4-8.2)
[2023-01-24 10:18] LABS: FREE T4 1.01 ng/dL (0.76-1.46); TSH 2.08 uIU/mL (0.36-3.74)
[2023-01-24 20:02] LABS: CEA 26.4 ng/mL (See Note)
[2023-01-26 09:47] VITALS: BP 92/55; PULSE 66; RESP 16; TEMP 36.7; O2SAT 99
[2023-01-26] MEDS: Normal Saline Flush 10 ML SYR IVP (09:58)
[2023-01-26] MEDS: Heparin 500 UNITS/5 ML SYRINGE IV (09:58)
== END 2023-01-31 23:59 | disposition home or self-care (01) ==
LOC: INF 00:01
PROVIDERS: PCP Family Medicine; Visit Provider Internal Medicine Hematology & Oncology
DX: C15.9 Malignant neoplasm of esophagus, unspecified (principal); Z79.899 Other long term (current) drug therapy; Z45.2 Encounter for adjustment and management of vascular access device
CPT/HCPCS: 36591; 80053; 96523; 82378; 84439; 84443; 85025

== ENCOUNTER 2023-01-27 12:19 | Emergency (ER) | payer MEDICARE, SELFPAY ==
--- NOTE | 2023-01-27 12:30 | DI.RAD_ITS ---
Exam(s) XR ABDOMEN FLAT PLATE EXAM: 2D digital imaging was performed. CLINICAL HISTORY: constipation. COMPARISON: No exams were available for comparison TECHNIQUE: Supine views of the abdomen was performed. Two images were obtained. FINDINGS: LUNG BASES: Not included on this examination. BOWEL GAS PATTERN: Nondistended. There is stool seen throughout the colon suggesting constipation. FREE AIR: None. CALCIFICATIONS: No radiopaque calcifications. OSSEOUS STRUCTURES: Degenerative changes are seen in the spine. OTHER FINDINGS: None. IMPRESSION: Findings suggestive of constipation. DATA REPOSITORY: RADIATION DOSE DELIVERED:
[2023-01-27 12:31] VITALS: BP 130/75; PULSE 105; RESP 18; TEMP 36.8; O2SAT 99
--- NOTE | 2023-01-27 12:36 | ED.GENADUL_ITS ---
Discharge Plan Discharge Details Chief Complaint: Abd Prob Primary Care Provider: Williams Suárez ED Provider: Luisito Vizcaino Home Meds and New Rx's Prescriptions: No Action zolpidem [Ambien] 10 mg Tablet 10 mg PO HS ondansetron 4 mg Tablet,Disintegrating 4 mg PO DAILY oxycodone 5 mg Tablet 5 mg PO PRN PRN HPI General Date/Time Provider Initiated Documentation: 01/27/23 12:25 . History of Present Illness described as moderate, Quality is described as other (discomfort), and it has been constant. HPI Narrative: 72 year old male with hx of esophageal Ca, sent to the ED from Cancer center for urinary retention. He says that he has been constipated for the past 3 days, normally takes Dulcolax and suppositories and they typically work well, but have not this time. He says that he last urinated yesterday. No fever/chills. No cp/sob, no cough. He is currently undergoing chemo for this, has infusion every other week, finished last week. Related Data Home Medications Medication Instructions Recorded Confirmed ondansetron 4 mg disintegrating 4 mg PO DAILY 12/24/22 12/24/22 tablet oxycodone 5 mg tablet 5 mg PO PRN PRN 12/24/22 12/24/22 zolpidem 10 mg tablet (Ambien) 10 mg PO HS 12/24/22 12/24/22 General Stated Complaint: Abd Prob SHAYNA: 3 Review of Systems Narrative: CONST: no fever or chills HEENT: no sore throat SKIN: no rashes PULM: no sob, no cough CARD: no cp, no palpitations ABD: +constipation EXTR: no swelling NEURO: No focal weakness PFSH Social History Smoking/Tobacco Use Status: Never Smoking risk assessment performed?: Yes Substance use type: does not use Do you feel safe at home: Yes Do you feel safe in your relationship?: Yes Exam Narrative Exam Narrative: Const: well appearing, no acute distress HEENT: normocephalic, atraumatic; MMM Lungs: CTA, no wheezing or rales Heart: RRR Abd: soft, NT/ND Rectal: semi-soft brown stool higher up in rectal vault Ext: well perfused Neuro: non-focal Skin: no rashes Course 72 year old male with hx esophageal Ca, undergoing chemo, sent from cancer center for urinary retention. Pt with 3 days of constipation. Suspect this may be his underlying issue causing his retention. Will bladder scan, check xray, may require swain and/or enema. Bladder scan ~800cc. Reevaluation(s) Initial Evaluation: 1525 - attempted enema unsuccessful, pt unable to hold it any. Given that stool was soft on exam suspect that Miralax will help. I discussed with pt that could potentially place swain, send home to do Miralax, and then follow up with urology to remove. He would like to see if he can stay and have BM here and avoid the catheter. Will order Miralax now. Vital Signs Vital signs: Vital Signs Temperature 36.8 C 01/27/23 12:31 Pulse 105 H 01/27/23 12:31 Respiratory Rate 18 01/27/23 12:31 Blood Pressure 130/75 01/27/23 12:31 Pulse Oximetry 99 01/27/23 12:31 Temperature 36.8 C 01/27/23 12:31 Temperature Source Oral 01/27/23 12:31 Pulse 105 H 01/27/23 12:31 Respiratory Rate 18 01/27/23 12:31 Blood Pressure 130/75 01/27/23 12:31 Blood Pressure Position Sitting 01/27/23 12:31 Pulse Oximetry 99 01/27/23 12:31 Oxygen Delivery Method Room Air 01/27/23 12:31 Oxygen Flow Rate 0 01/27/23 12:31
[2023-01-27] MEDS: Polyethylene Glycol 3350 17 GM PACKET PO (16:27)
--- NOTE | 2023-01-27 18:22 | W.EDPROG ---
Date of service: 01/27/23 Time of Service: 18:22 Medical Decision Making pt had a bowel movement and urinated and now feels significantly better requesting d/c and has no abdominal tenderness, he is stable for d/c, advised to f/u with his pcp/oncologist and return precautions given Sign Out Sign Out Data: Sign Out Comment: constipation; urinary retention. Try miralax and see if can have BM and relieve his retention. Last updated by Luisito Vizcaino MD at 01/27/23 16:28 Discharge Plan Disposition Patient Disposition: Home Condition: Stable Discharge Details Clinical Impression: Constipation Primary Care Provider: Williams Suárez ED Provider: Russ Box Home Meds and New Rx's Prescriptions: Continued zolpidem [Ambien] 10 mg Tablet 10 mg PO HS ondansetron 4 mg Tablet,Disintegrating 4 mg PO DAILY oxycodone 5 mg Tablet 5 mg PO PRN PRN Discharge Instructions Instructions: Constipation (ED) Additional Instructions: Follow up with your primary care provider within 1-2 weeks and your oncologist you can take miralax as needed, follow dosing instructions on packaging If you feel more ill, have severe worsening pain or persistent vomiting return to the emergency department
== END 2023-01-27 18:44 | disposition home or self-care (01) ==
PROVIDERS: Emergency Provider Emergency Medicine; PCP Family Medicine
DX: K59.00 Constipation, unspecified (principal); R33.9 Retention of urine, unspecified; C15.9 Malignant neoplasm of esophagus, unspecified; Z92.21 Personal history of antineoplastic chemotherapy
CPT/HCPCS: 99284; 74018; 99283; J3490

== ENCOUNTER 2023-02-23 00:11 | Outpatient (RCR) | payer MEDICARE, SELFPAY ==
[2023-02-01 00:08] VITALS: BP 92/55; PULSE 66; RESP 16; TEMP 36.7
[2023-02-07 09:27] LABS: Abs Immature Grans 0.01 10^3/uL (0.0-0.06); Absolute Basophil Count 0.07 10^3/uL (0.0-0.2); Absolute Eosinophil Count 0.28 10^3/uL (0.0-0.7); Absolute Lymphocyte Count 0.84 10^3/uL (1.2-3.4); Absolute Monocyte Count 0.47 10^3/uL (0.1-0.8); Absolute Neutrophil Count 2.18 10^3/uL (1.2-6.7); Basophils % 1.8; Eosinophils % 7.3; HCT 30.9 % (40.0-50.0); HGB 10.2 g/dL (13.5-17.5); Immature Grans % 0.3; Lymphocytes % 21.8; MCH 30.8 pg (27.0-33.0); MCV 93 fL (80-95); Monocytes % 12.2; Neutrophils % 56.6; RBC 3.31 10^6/uL (4.36-5.78); RDW 16.9 % (11.8-14.1); RDW-SD 57.1 fL; WBC 3.85 10^3/uL (4.4-10.8)
[2023-02-07 09:39] LABS: Diff Comment Diff Reviewed; Platelet Count 77 10^3/uL (130-400); RBC Morphology Normal
[2023-02-07 09:40] LABS: ALT 29 U/L (16-63); AST 31 U/L (15-37); Albumin 2.5 g/dL (3.4-5.0); Alkaline Phosphatase 92 U/L (46-116); Anion Gap 6.1 mmol/L (3-11); BUN 14 mg/dL (7-18); Bilirubin, Total 0.5 mg/dL (0.2-1.0); CO2 27.9 mmol/L (21.0-32.0); Calcium 8.6 mg/dL (8.5-10.1); Chloride 107 mmol/L (98-107); Estimated GFR 80.47 (mL/min/1.73m2); Glucose 95 mg/dL (74-106); Potassium 3.6 mmol/L (3.5-5.1); Sodium 141 mmol/L (136-145)
[2023-02-07] MEDS: Normal Saline Flush 10 ML SYR IVP (10:57)
[2023-02-07 11:31] LABS: FREE T4 1.02 ng/dL (0.76-1.46); TSH 2.97 uIU/mL (0.36-3.74)
[2023-02-07 21:03] LABS: CEA 6.9 ng/mL (See Note)
[2023-02-09] MEDS: Normal Saline Flush 10 ML SYR IVP (10:55)
[2023-02-09] MEDS: Heparin 500 UNITS/5 ML SYRINGE IV (10:56)
[2023-02-21] MEDS: Normal Saline Flush 10 ML SYR IVP (09:04)
[2023-02-21 09:23] LABS: Absolute Basophil Count 0.04 10^3/uL (0.0-0.2); Absolute Eosinophil Count 0.24 10^3/uL (0.0-0.7); Absolute Lymphocyte Count 0.69 10^3/uL (1.2-3.4); Absolute Monocyte Count 0.56 10^3/uL (0.1-0.8); Absolute Neutrophil Count 1.97 10^3/uL (1.2-6.7); Basophils % 1.1; Eosinophils % 6.9; HCT 31.2 % (40.0-50.0); HGB 10.4 g/dL (13.5-17.5); Lymphocytes % 19.7; MCH 31.4 pg (27.0-33.0); MCHC 33.3 % (32.0-36.0); MCV 94 fL (80-95); MPV 11.7 fL (8.0-11.0); Neutrophils % 56.3; RBC 3.31 10^6/uL (4.36-5.78); RDW-SD 61.7 fL
[2023-02-21 09:41] LABS: Platelet Count 88 10^3/uL (130-400)
[2023-02-21 09:48] LABS: ALT 24 U/L (16-63); AST 25 U/L (15-37); Albumin 2.6 g/dL (3.4-5.0); Alkaline Phosphatase 99 U/L (46-116); Anion Gap 6.2 mmol/L (3-11); BUN 13 mg/dL (7-18); Bilirubin, Total 0.5 mg/dL (0.2-1.0); CO2 27.8 mmol/L (21.0-32.0); Calcium 8.9 mg/dL (8.5-10.1); Chloride 110 mmol/L (98-107); Estimated GFR 80.47 (mL/min/1.73m2); Glucose 102 mg/dL (74-106); Potassium 3.8 mmol/L (3.5-5.1); Sodium 144 mmol/L (136-145)
[2023-02-21 20:56] LABS: CEA 3.1 ng/mL (See Note)
[2023-02-23] MEDS: Normal Saline Flush 10 ML SYR IVP (10:45)
[2023-02-23] MEDS: Heparin 500 UNITS/5 ML SYRINGE IV (10:45)
== END 2023-03-03 23:59 | disposition home or self-care (01) ==
LOC: INF 00:11
PROVIDERS: PCP Family Medicine; Visit Provider Internal Medicine Hematology & Oncology
DX: C15.9 Malignant neoplasm of esophagus, unspecified (principal); Z79.899 Other long term (current) drug therapy; Z45.2 Encounter for adjustment and management of vascular access device
CPT/HCPCS: 36591; 80053; 96523; 82378; 84439; 84443; 85025

== ENCOUNTER → 2023-03-18 01:35 | Outpatient (CLI) | payer MEDICARE, SELFPAY ==
--- NOTE | 2023-03-18 13:00 | DI.US_ITS ---
APPROVED REPORT EXAM: Comprehensive 2D, Doppler, and color-flow Echocardiogram Patient Location: Out-Patient Fish Header: Lakshmi Stern RDCS (AE) Indications: High Risk Medication use, Esophageal CA Stage IV Other Information Study Quality: Good Conclusion Normal left ventricular wall thickness and chamber size. Ejection fraction is 55%-60%. Wall motion is normal Normal right ventricular size and function Left atrium is mildly dilated. Right atrial size is normal Aortic valve is trileaflet without stenosis or regurgitation Structurally normal mitral valve with mild to moderate regurgitation Normal tricuspid valve with mild regurgitation. Estimated right ventricular systolic pressure is 21 mmHg Global strain is 16.8%, 17.6% Wall motion Left Ventricle The left ventricle is normal size. The left ventricular systolic function is normal. The left ventric ular ejection fraction is within the normal range. There is normal left ventricular wall thickness. T here is normal LV segmental wall motion. There is no ventricular septal defect visualized. LVEF is 55 %. Right Ventricle The right ventricle is normal size. The right ventricular systolic function is normal. Atria Left atrium is mildly dilated. The right atrium size is normal. The interatrial septum is intact wit h no evidence for an atrial septal defect. Aortic Valve The aortic valve is normal in structure. Aortic valve is trileaflet. There is no aortic valvular sten osis. No aortic regurgitation is present. Mitral Valve The mitral valve is normal in structure. No evidence of mitral valve stenosis. Mild to moderate josé luis l regurgitation. Tricuspid Valve The tricuspid valve is normal in structure. There is no tricuspid valve stenosis. Mild tricuspid regu rgitation. The RVSP is 21.9 mmHg. Pulmonic Valve The pulmonary valve is normal in structure. There is no pulmonic valvular stenosis. Trace pulmonic re gurgitation. Great Vessels The aortic root is normal in size. The ascending aorta is mildly dilated. Aortic arch is normal in ca liber. IVC is normal in size and collapses >50% with inspiration. Pericardium There is no pericardial effusion. 2D Dimensions IVSD d PLAX 0.78 cm M: 0.6-1.2 LVPW d PLAX 0.94 cm M: 0.6 - 1.2 LVID d PLAX 5.64 cm M: 4.2 - 5.8 LVDs 3.70 cm M: 2.5 - 4.0 Ao Root d 3.34 cm M: 3.1 - 3.7 Ao Asc Diam d 3.68 cm M: 2.6 - 3.4 LV EF Teichholz 62.1 % FS 33.90 % M-Mode TAPSE 1.72 cm (M/F) >1.7 LV Diastology MV E' medial 0.088 (>0.07 m/s) E/A Ratio 1.3 LV E/e MED 7.92 (<14) MV E Vmax 0.70 (0.4-1.3 m/s) MV E' lateral 0.140 (>0.1 m/s) MV A Vmax 0.55 (0.4-1.3 m/s) LV E/e LAT 4.96 (<14) MV E/E' medial 7.92 MV E/E' lateral 4.96 MV (E/E' average) 6.10 Aortic Valve LVOT Vmax 1.01 m/s AoV Area Vmax 2.77 cm2 LVOT Peak Grad 4.1 mmHg LVOT Mean Grad 2.1 mmHg LVOT Diam s 2.15 cm AoV Vmax 1.33 m/s Velocity Ratio 0.76 AoV Peak Grad 7.1 mmHg LVOT SV 87.34 mL AoV Mean Grad 3.8 mmHg AoV Area VTI 2.74 cm2 Mitral Valve MV DT 168 (160-240 msec) MR Vmax 4.98 m/s MV Vmax TIPS 0.72 m/s MR VTI 1.734 m MV Mean Grad 0.8 (<2mmHg) MR Peak Grad 99.0 mmHg MV VTI 0.242 m MR Mean Grad 67.7 mmHg MR PISA Radius 0.50 cm Pulmonary Valve PV Mean Grad 2.7 mmHg RVOT Peak Gr. 2.04 mmHg RVOT Mean Gr. 1.10 mmHg RVOT VTI 0.183 m RVOT Vmax 0.71 m/s Tricuspid Valve TR Peak Grad 18.9 mmHg TR Vmax 2.17 m/s RA Pressure 3.00 mmHg RVSP (TR) 21.9 mmHg
== END ==
PROVIDERS: PCP Family Medicine; Visit Provider Internal Medicine Hematology & Oncology
DX: Z79.899 Other long term (current) drug therapy (principal)
CPT/HCPCS: 93306

== ENCOUNTER 2023-03-21 01:58 | Outpatient (RCR) | payer MEDICARE, SELFPAY ==
[2023-03-04 00:04] VITALS: BP 92/55; PULSE 66; RESP 16; TEMP 36.7
[2023-03-07] MEDS: Normal Saline Flush 10 ML SYR IVP (07:43)
[2023-03-07 07:53] LABS: Abs Immature Grans 0.02 10^3/uL (0.0-0.06); Absolute Basophil Count 0.04 10^3/uL (0.0-0.2); Absolute Eosinophil Count 0.26 10^3/uL (0.0-0.7); Absolute Lymphocyte Count 0.82 10^3/uL (1.2-3.4); Absolute Monocyte Count 0.61 10^3/uL (0.1-0.8); Absolute Neutrophil Count 2.66 10^3/uL (1.2-6.7); Basophils % 0.9; Eosinophils % 5.9; HCT 32.6 % (40.0-50.0); HGB 10.9 g/dL (13.5-17.5); Immature Grans % 0.5; Lymphocytes % 18.6; MCH 31.4 pg (27.0-33.0); MCHC 33.4 % (32.0-36.0); MCV 94 fL (80-95); MPV 11.6 fL (8.0-11.0); Monocytes % 13.8; Neutrophils % 60.3; RBC 3.47 10^6/uL (4.36-5.78); RDW 17.9 % (11.8-14.1); RDW-SD 61.4 fL; WBC 4.41 10^3/uL (4.4-10.8)
[2023-03-07 08:16] LABS: ALT 24 U/L (16-63); AST 26 U/L (15-37); Albumin 2.6 g/dL (3.4-5.0); Alkaline Phosphatase 94 U/L (46-116); BUN 15 mg/dL (7-18); Bilirubin, Total 0.6 mg/dL (0.2-1.0); Calcium 8.9 mg/dL (8.5-10.1); Chloride 107 mmol/L (98-107); Estimated GFR 80.47 (mL/min/1.73m2); Glucose 108 mg/dL (74-106); Potassium 3.7 mmol/L (3.5-5.1); Sodium 141 mmol/L (136-145); Total Protein 6.2 g/dL (6.4-8.2)
[2023-03-07 08:18] LABS: Diff Comment PLT Morph Reviewed; Platelet Count 84 10^3/uL (130-400)
[2023-03-09 09:12] VITALS: BP 95/60; PULSE 67; RESP 16; TEMP 36.2; O2SAT 100
[2023-03-09] MEDS: Heparin 500 UNITS/5 ML SYRINGE IV (09:15)
[2023-03-09] MEDS: Normal Saline Flush 10 ML SYR IVP (09:15)
[2023-03-10 08:10] LABS: CEA 2.1 ng/mL (See Note)
[2023-03-21 09:43] LABS: Abs Immature Grans 0.01 10^3/uL (0.0-0.06); Absolute Basophil Count 0.05 10^3/uL (0.0-0.2); Absolute Eosinophil Count 0.19 10^3/uL (0.0-0.7); Absolute Lymphocyte Count 0.83 10^3/uL (1.2-3.4); Absolute Monocyte Count 0.55 10^3/uL (0.1-0.8); Basophils % 1.1; Eosinophils % 4.3; HCT 31.7 % (40.0-50.0); HGB 10.5 g/dL (13.5-17.5); Immature Grans % 0.2; Lymphocytes % 18.7; MCH 31.3 pg (27.0-33.0); MCHC 33.1 % (32.0-36.0); MCV 95 fL (80-95); MPV 11.8 fL (8.0-11.0); Monocytes % 12.4; Neutrophils % 63.3; RBC 3.35 10^6/uL (4.36-5.78); RDW 17.7 % (11.8-14.1); RDW-SD 60.9 fL; WBC 4.43 10^3/uL (4.4-10.8)
[2023-03-21 09:44] LABS: Platelet Count 80 10^3/uL (130-400)
[2023-03-21 10:04] LABS: ALT 28 U/L (16-63); AST 27 U/L (15-37); Albumin 2.6 g/dL (3.4-5.0); Alkaline Phosphatase 104 U/L (46-116); Anion Gap 7.5 mmol/L (3-11); BUN 16 mg/dL (7-18); Bilirubin, Total 0.5 mg/dL (0.2-1.0); CO2 27.5 mmol/L (21.0-32.0); CREATININE 0.9 mg/dL (0.70-1.30); Chloride 111 mmol/L (98-107); Estimated GFR 91.31 (mL/min/1.73m2); FREE T4 0.88 ng/dL (0.76-1.46); Glucose 98 mg/dL (74-106); Potassium 3.9 mmol/L (3.5-5.1); Sodium 146 mmol/L (136-145); TSH 2.47 uIU/mL (0.36-3.74); Total Protein 6.1 g/dL (6.4-8.2)
[2023-03-21] MEDS: Normal Saline Flush 10 ML SYR IVP (13:01)
[2023-03-21 19:15] LABS: CEA 1.8 ng/mL (See Note)
== END 2023-04-03 23:59 | disposition home or self-care (01) ==
LOC: INF 01:58
PROVIDERS: PCP Family Medicine; Visit Provider Internal Medicine Hematology & Oncology
DX: C15.9 Malignant neoplasm of esophagus, unspecified (principal); Z79.899 Other long term (current) drug therapy; Z45.2 Encounter for adjustment and management of vascular access device
CPT/HCPCS: 36591; 80053; 96523; 82378; 84439; 84443; 85025

== ENCOUNTER 2023-03-29 13:19 | Emergency (ER) | payer MEDICARE, SELFPAY ==
[2023-03-29] VITALS (49 sets, daily range): BP systolic 103–132; BP diastolic 53–82; PULSE 56–86; RESP 16; TEMP 37; O2SAT 94–100
--- NOTE | 2023-03-29 13:15 | RT.EKG_ITS ---
APPROVED REPORT Exam: Resting ECG Reason for Exam: chest pain Patient Location: E HR:69 bpm ECG Measurements Heart Rate 69 AXIS GA 211 P 1 QRSd 99 QRS 15 QT 379 T 36 QTc 407 Conclusion Sinus rhythm...normal P axis, V-rate 60- 99 Low voltage, precordial leads...precordial leads <1.0mV Narrow complex normal sinus rhythm at a rate of 69. Normal axis. Low voltage. T wave flattening in lead III. First-degree AV block. QTc within normal limits. Compared to prior first-degree AV bloc k is new. Low voltage is persistent.
--- NOTE | 2023-03-29 13:30 | DI.CT_ITS ---
Exam(s) CT CHEST PE ABD PELVIS W EXAM: CT CHEST PE ABD PELVIS W CLINICAL HISTORY: Upper back pain black stools. TECHNIQUE: Imaging Protocol: Axial CT angiography was performed with multi-slice acquisition and mu lti-planar and/or 3D reconstructions. CONTRAST MATERIAL: Intravenous: Omnipaque 350contrast volume:100 mL COMPARISON: No exams were available for comparison FINDINGS: CHEST: Tracheobronchial tree: Patent where visualized. Pulmonary parenchyma: There is pulmonary fibrosis present. No focal consolidating infiltrates are pr esent. No architectural distortion. Pulmonary Arteries: No evidence of filling defect to suggest pulmonary emboli. Mediastinum and Yenny: No dominant adenopathy or fluid collection. There is wall thickening of the eso phagus present. Visualized thyroid gland: Unremarkable. Pleura: No effusion or pneumothorax. Heart: Cardiomegaly. Mild coronary artery calcification. No pericardial effusion. Aorta: Thoracic aorta non-dilated. No evidence of dissection. Atherosclerosis. Bones: Within normal limits for the patient's age. Soft tissues: Unremarkable. Tubes, Catheters, and Lines: There is a indwelling central venous catheter in place. ABDOMEN: Liver: The liver has a nodular contour suggesting hepatic cirrhosis. No measurable mass. Portal, Superior Mesenteric, and Splenic Veins: Unremarkable. Gallbladder and Biliary Tract: No radiodense calculus or dilation. Pancreas: Normal density, no abnormal calcifications or inflammatory process. Spleen: Splenomegaly. Adrenals: No masses seen. Kidneys: Normal size, contour and axis. No radiodense stones or obstructive uropathy. No masses seen. Abdominal Aorta: Abdominal portion non-dilated. Atherosclerosis. Bowel: There is a hiatal hernia. There is no evidence of bowel obstruction or bowel wall thickening. There is no evidence of appendicitis. There is diverticulosis without evidence of acute diverticul itis. Peritoneal Cavity: No ascites, collection or mesenteric inflammatory response. No free air. Lymph Nodes: Within normal limits. Bones: Within normal limits for the patient's age. Soft Tissues: Unremarkable. PELVIS: Bladder: Symmetric distention, no gross wall thickening. Reproductive Organs: Unremarkable as visualized. Lymph Nodes: Within normal limits. Bones: Within normal limits. IMPRESSION: 1. No evidence pulmonary embolism, thoracic aortic dissection or aneurysm. 2. Thickening of the wall of the distal esophagus concerning for esophagitis. 3. 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 RADIATION DOSE DELIVERED: 981.74mGy.cm Total DLP DATA REPOSITORY: All CT scans at this facility are submitted to the National Radiology Data Registry (NRDR) Dose Index Registry (DIR) with the [employer] (ACR). RADIATION OPTIMIZATION: All CT scans at this facility use at least one of these dose optimization te chniques: automated exposure control; mA and/or kV adjustment per patient size (includes targeted exa ms where dose is matched to clinical indication); or iterative reconstruction.
--- NOTE | 2023-03-29 13:35 | W.ED.GENAD ---
Discharge Plan Discharge Details Chief Complaint: GI Bleed Clinical Impression: Black stools, Decubitus ulcer of sacral region, Thrombocytopenia, Macrocytic anemia, Splenomegaly Primary Care Provider: Williams Suárez ED Provider: Abdifatah Cates Home Meds and New Rx's Prescriptions: Continued zolpidem [Ambien] 10 mg Tablet 10 mg PO HS ondansetron 4 mg Tablet,Disintegrating 4 mg PO DAILY oxycodone 5 mg Tablet 5 mg PO PRN PRN Discharge Instructions Additional Instructions: Please read all of the information that accompanies these instructions. You were seen in the emergency department for your black stools. Your blood work showed no sign of any active bleeding. Please schedule an appointment with your primary care provider later this week. Please return to the emergency department if develop any black stools pass out or if you have any other concerns. Medical Decision Making This is a chronically ill-appearing normothermic and not tachycardic 73-year-old male with esophageal cancer on outpatient chemotherapy now in the emergency department in setting of black and bloody stools concerning for upper GI bleed. Patient has no melena on exam however will send type and screen and treat with 80 mg of pantoprazole and keep patient n.p.o. Low suspicion for SBP so will defer ceftriaxone. He is also having upper back pain concerning for the possibility of aortic dissection for which he will undergo CT chest abdomen pelvis. His ECG is not ischemic. Given his history of malignancy and his left upper back pain which he describes as behind his heart I am concerned for the possibility of PE for which he will undergo a CT chest PE protocol. He is not hypotensive to suggest tamponade. He has had no cough nor fevers to suggest pneumonia. Equal breath sounds so my suspicion for pneumothorax is low. He has no epigastric tenderness to suggest pancreatitis. No right lower quadrant tenderness to suggest appendicitis. No left lower quadrant tenderness to suggest diverticulitis. He is not anticoagulated to suggest need for reversal. Will reassess following labs and imaging however anticipate patient will require hospitalization given reported black or bloody stools however will repeat H&H and calculate Gloria Blatchford bleeding score. He does have a sacral decubitus ulcer underneath a Mepilex. Per report from [facility] according to patient it is healing. Patient reports that he is full code. Given esophageal cancer he could have possibly eroded into one of his blood vessels causing acute upper GI bleed. He also states certainly could be bleeding from his tumor. 2:25 PM CBC showing a mild macrocytic anemia slightly improved compared to prior. Slightly improved thrombocytopenia. No leukocytosis. 2:41 PM Comprehensive metabolic panel showing persistent hypoalbuminemia. Normal BUN. No BALTAZAR. No acute electrolyte abnormalities. Negative troponin. Normal magnesium. Patient's Gloria Blatchford bleeding score is 3 making him high risk. We will keep patient n.p.o. repeat H&H and reach out to the hospitalist with request for hospitalization. We will touch base with general surgery as well following CT scan. 3:[address] chest showing no signs of aortic dissection. No signs of active blush in abdomen. CT concerning for possible changes of hepatocellular disease with splenomegaly concerning for possible early portal hypertensive. I advised patient that he would benefit from hospitalization. He was amenable. We will touch base with general surgery. 4 PM I spoke with Dr. Good from general surgery and made him aware of the patient. He reported that he would be amenable to helping with the patient's care and possibly scope the patient if necessary. We will keep patient n.p.o. at midnight and provide a regular diet now. 5:15 PM I spoke with Dr. TANNER who graciously agreed to accept the patient for observation hospitalization. Repeat H&H stable. 6:[address] TANNER advised me that patient was not meeting criteria for hospitalization and would likely be responsible for payment given stable H&H. I asked Dr. TANNER to come evaluate the patient as patient sister was not comfortable taking him home. Dr. TANNER met with the patient. Patient and his sister are amenable to discharge. We will ensure that 1 final H&H is stable. We will sign patient out to Dr. Ruiz pending repeat H&H. Repeat negative troponin. We discussed return indications including any recurrent black or bloody stools or any episodes of syncope. Will write patient up with continued discharge instructions. 7:15 PM Patient remained hemodynamically stable on my shift. We will sign patient out to Dr. Ruiz. Chronic conditions affecting the care of the patient: Esophageal cancer History obtained from an outside historian: Patient's sister External record review: [facility] [place] Diagnostic interpretations performed by me: Per my independent interpretation EKG shows: Narrow complex normal sinus rhythm at a rate of 69. Normal axis. Low voltage. T wave flattening in lead III. First-degree AV block. QTc within normal limits. Compared to prior first-degree AV block is new. Low voltage is persistent. No acute injury pattern. Medications: Pantoprazole Social determinants of health affecting disposition: Home health services in place Management discussed with: General surgery & hospitalist Treatment/interventions considered: Hospitalization but deferred Response to therapies provided: No recurrent bleeding in the ED HPI General Date/Time Provider Initiated Documentation: 03/29/23 13:19. HPI Narrative: This is a 73-year-old male on chemotherapy in the setting of metastatic esophageal adenocarcinoma in the emergency department in the setting of black stools which he noticed last night along with pain in his left upper back, behind his heart. He says that his pain does not radiate. He has not positional nor pleuritic. He does feel increasingly weak. He feels pain when moving around. He is being treated for a sacral decubitus ulcer by his home health care nurse who advised ED evaluation. Patient is not anticoagulated. He has no history of coronary artery disease. He has had no cough fevers dysuria frequency nausea nor vomiting. He has never had any surgeries to his abdomen in the past. He remotely had a colonoscopy. He has never had any black stools in the past. He denies history of routine ethanol. He has not taken any recent falls. No recent syncope. Related Data Home Medications Medication Instructions Recorded Confirmed ondansetron 4 mg disintegrating 4 mg PO DAILY 12/24/22 12/24/22 tablet oxycodone 5 mg tablet 5 mg PO PRN PRN 12/24/22 12/24/22 zolpidem 10 mg tablet (Ambien) 10 mg PO HS 12/24/22 12/24/22 General Stated Complaint: GI Bleed SHAYNA: 3 PFSH All Active Problems (Updated 03/29/23 @ 18:21 by Antwon Tanner MD) Esophageal cancer (Acute) Black stools (Acute) Decubitus ulcer of sacral region (Acute) Thrombocytopenia (Chronic) Macrocytic anemia (Acute) Splenomegaly (Acute) Social History Smoking/Tobacco Use Status: Never Smoking risk assessment performed?: Yes Substance use type: does not use Do you feel safe at home: Yes Do you feel safe in your relationship?: Yes Exam Narrative Exam Narrative: General: Chronically ill-appearing in no acute distress speaking in complete sentences. Patient does appear pale. Head: Normocephalic, atraumatic. Eye: Extraocular eye movements intact. No conjunctival injection. No scleral icterus. Ear, nose, mouth, throat: Grossly normal inspection. Normal voice, handling secretions normally. Neck: Trachea midline. Cardiovascular: Well-perfused distal extremities. regular rate and rhythm. Chest wall: Right chest wall port in place. No surrounding erythema nor tenderness. Respiratory: Nonlabored respiration.Clear lungs bilaterally. Gastrointestinal: Nondistended abdomen. Soft nontender no rebound. No guarding. : On rectal exam patient had no melena. He did have a sacral decubitus ulcer underneath a Mepilex dressing. His ulcer extends distally into the proximal end of his gluteal crease. There is no surrounding fluctuance erythema nor tenderness. Musculoskeletal: No edema. Moving all 4 extremities spontaneously. Skin: Normal for age and race, grossly normal temperature and turgor. No acute rash. Neurologic: Alert and appropriate, no apparent acute deficits. Psychiatric: Mood and manner are appropriate. Grooming and personal hygiene are appropriate. Course Vital Signs Vital signs: Vital Signs Temperature 37 C 03/29/23 13:23 Pulse 74 03/29/23 13:23 Respiratory Rate 16 03/29/23 13:23 Blood Pressure 111/69 03/29/23 13:23 Pulse Oximetry 98 03/29/23 13:23 Temperature 37 C 03/29/23 13:23 Temperature Source Skin 03/29/23 13:23 Pulse 74 03/29/23 13:23 Respiratory Rate 16 03/29/23 13:23 Blood Pressure 111/69 03/29/23 13:23 Pulse Oximetry 98 03/29/23 13:23 Oxygen Delivery Method Room Air 03/29/23 13:23 Oxygen Flow Rate 0 03/29/23 13:23 Pain Level 0 03/29/23 13:23
[2023-03-29] MEDS: Pantoprazole 40 MG VIAL 80 MG IVP (13:56)
[2023-03-29 14:08] LABS: Abs Immature Grans 0.02 10^3/uL (0.0-0.06); Absolute Basophil Count 0.05 10^3/uL (0.0-0.2); Absolute Eosinophil Count 0.24 10^3/uL (0.0-0.7); Absolute Lymphocyte Count 0.89 10^3/uL (1.2-3.4); Absolute Monocyte Count 0.71 10^3/uL (0.1-0.8); Absolute Neutrophil Count 2.77 10^3/uL (1.2-6.7); Basophils % 1.1; Eosinophils % 5.1; HCT 34.8 % (40.0-50.0); HGB 11.2 g/dL (13.5-17.5); Immature Grans % 0.4; MCH 30.9 pg (27.0-33.0); MCHC 32.2 % (32.0-36.0); MCV 96 fL (80-95); MPV 12.5 fL (8.0-11.0); Monocytes % 15.2; Neutrophils % 59.2; Platelet Count 102 10^3/uL (130-400); RBC 3.62 10^6/uL (4.36-5.78); RDW 16.8 % (11.8-14.1); RDW-SD 59.7 fL; WBC 4.68 10^3/uL (4.4-10.8)
[2023-03-29 14:20] LABS: INR 1.1 (0.9-1.1); Prothrombin Time 10.7 sec (9.3-11.0)
[2023-03-29 14:26] LABS: ALT 23 U/L (16-63); AST 26 U/L (15-37); Albumin 2.8 g/dL (3.4-5.0); Alkaline Phosphatase 110 U/L (46-116); Anion Gap 4.1 mmol/L (3-11); BUN 17 mg/dL (7-18); Bilirubin, Total 0.4 mg/dL (0.2-1.0); CO2 29.9 mmol/L (21.0-32.0); Calcium 9.6 mg/dL (8.5-10.1); Chloride 107 mmol/L (98-107); Estimated GFR 80.47 (mL/min/1.73m2); Glucose 101 mg/dL (74-106); Magnesium 1.8 mg/dL (1.8-2.4); Potassium 4.2 mmol/L (3.5-5.1); Sodium 141 mmol/L (136-145); Total Protein 6.6 g/dL (6.4-8.2); Troponin I < 50 ng/L (<or=60)
[2023-03-29] MEDS: Omnipaque 350 MG/ML 100 ML BTL IJ (14:36)
[2023-03-29] MEDS: Normal Saline - Diluent 50 ML VIAL IJ (14:36)
--- NOTE | 2023-03-29 15:29 | DI.VRAD_ITS ---
PROCEDURE INFORMATION: Exam: CTA Chest With Contrast Exam date and time: 03/29/2023 2:37 PM Age: 73 years old Clinical indication: Patient HX: Upper back pain, black stools TECHNIQUE: Imaging protocol: Computed tomographic angiography of the chest with contrast. Exam focused on the arteries. 3D rendering (Not supervised by radiologist): MIP and/or 3D reconstructed images were created by the technologist. COMPARISON: CR XR PORTABLE CHEST AP 12/24/2022 6:44 PM FINDINGS: Tubes, catheters and devices: Right-sided Port-A-Cath in place. Pulmonary arteries: Normal. No pulmonary emboli. Aorta: Unremarkable. No aortic aneurysm. No aortic dissection. Lungs: There is reticular change in the lingula and both lung bases, mild. The lungs are overall hyperaerated suggesting a degree of underlying COPD. Pleural spaces: Unremarkable. No pneumothorax. No pleural effusion. Heart: Mild cardiomegaly. Lymph nodes: Unremarkable. No enlarged lymph nodes. Diaphragm: There is a small to moderate-sized hiatal hernia. There appears to be some mid and distal esophageal wall thickening. Bones/joints: The bone mineralization appears decreased. Soft tissues: Unremarkable. Other findings: Mild atherosclerotic change noted in the vasculature. IMPRESSION: 1. No evidence for pulmonary embolus. 2. Aorta is normal in course and caliber. 3. Concern for mid and distal esophagitis. PROCEDURE INFORMATION: Exam: CT Abdomen And Pelvis With Contrast Exam date and time: 03/29/2023 2:37 PM Age: 73 years old Clinical indication: Patient HX: Upper back pain, black stools TECHNIQUE: Imaging protocol: Computed tomography of the abdomen and pelvis with contrast. COMPARISON: CR XR ABDOMEN FLAT PLATE 01/27/2023 2:11 PM FINDINGS: Liver: There is nodular change to the hepatic surface consistent with underlying hepatocellular disease. Gallbladder and bile ducts: Normal. No calcified stones. No ductal dilation. Pancreas: Normal. No ductal dilation. Spleen: Splenomegaly present. Adrenal glands: Normal. No mass. Kidneys and ureters: Normal. No hydronephrosis. Stomach and bowel: Mild diverticulosis without acute diverticulitis. Appendix: No evidence of appendicitis. Intraperitoneal space: Unremarkable. No free air. No significant fluid collection. Vasculature: Moderate atherosclerotic change present in the vasculature. Lymph nodes: Unremarkable. No enlarged lymph nodes. Urinary bladder: Unremarkable as visualized. Reproductive: Unremarkable as visualized. Bones/joints: Prominent Schmorl's node versus mild compression deformity L3. Soft tissues: Unremarkable. IMPRESSION: Changes of underlying hepatocellular disease with splenomegaly suggest early portal hypertension. Dictated and Authenticated by: Glenda Gtz MD. Ordering:ANGEL Gardiner MD
--- NOTE | 2023-03-29 16:00 | W.SURGCON ---
Date of service: 03/29/23 Time of Service: 16:00 History of Present Illness History of Present Illness Chief Complaint: Melena PFSH All Active Problems (Updated 03/29/23 @ 15:41 by Abdifatah Cates MD) Black stools (Acute) Decubitus ulcer of sacral region (Acute) Thrombocytopenia (Chronic) Macrocytic anemia (Acute) Splenomegaly (Acute) Social History Smoking/Tobacco Use Status: Never Smoking risk assessment performed?: Yes Substance use type: does not use Do you feel safe at home: Yes Do you feel safe in your relationship?: Yes Results Last Vital Signs Temp 98.6 F 03/29/23 13:23 Pulse 74 03/29/23 13:23 Resp 16 03/29/23 13:23 BP 111/69 03/29/23 13:23 Pulse Ox 98 03/29/23 13:23 Labs 03/29/23 13:36 03/29/23 13:36 Labs: Laboratory Results - last 24 hr 03/29/23 03/29/23 03/29/23 13:36 13:36 13:36 WBC 4.68 RBC 3.62 L Hgb 11.2 L Hct 34.8 L MCV 96 H MCH 30.9 MCHC 32.2 RDW 16.8 H Plt Count 102 L MPV 12.5 H Immature Gran % 0.4 Neutrophils % 59.2 Lymphocytes % 19.0 Monocytes % 15.2 Eosinophils % 5.1 Basophils % 1.1 Nucleated RBC % 0.0 Absolute Neutrophils 2.77 Absolute Lymphocytes 0.89 L Absolute Monocytes 0.71 Absolute Eosinophils 0.24 Absolute Basophils 0.05 PT 10.7 INR 1.1 Sodium 141 Potassium 4.2 Chloride 107 Carbon Dioxide 29.9 Anion Gap 4.1 BUN 17 Creatinine 1.0 Est GFR (CKD-EPI 2020) 80.47 Glucose 101 Calcium 9.6 Magnesium 1.8 Total Bilirubin 0.4 AST 26 ALT 23 Alkaline Phosphatase 110 Troponin I < 50 Total Protein 6.6 Albumin 2.8 L Patient ABO/Rh Antibody Screen 03/29/23 13:36 WBC RBC Hgb Hct MCV MCH MCHC RDW Plt Count MPV Immature Gran % Neutrophils % Lymphocytes % Monocytes % Eosinophils % Basophils % Nucleated RBC % Absolute Neutrophils Absolute Lymphocytes Absolute Monocytes Absolute Eosinophils Absolute Basophils PT INR Sodium Potassium Chloride Carbon Dioxide Anion Gap BUN Creatinine Est GFR (CKD-EPI 2020) Glucose Calcium Magnesium Total Bilirubin AST ALT Alkaline Phosphatase Troponin I Total Protein Albumin Patient ABO/Rh B Positive Antibody Screen NEGATIVE
[2023-03-29 16:32] LABS: HCT 35.1 % (40.0-50.0); HGB 11.4 g/dL (13.5-17.5)
[2023-03-29 17:15] LABS: Troponin I < 50 ng/L (<or=60)
--- NOTE | 2023-03-29 17:23 | W.MEDCONSULT ---
Date of service: 03/29/23 Time of Service: 17:23 Assessment and Plan Assessment and plan (1) Black stools: Status: Inactive Assessment and plan: Pt endorsed a black stool with some blood also being noted. Stool heme negative in ED. Hgb improved from earlier this month. Hgb 11.2 > 11.4. (2) Esophageal cancer: Status: Acute Assessment and plan: Palliative chemotx currently. Consider palliative referral. History of Present Illness History of Present Illness Chief Complaint: Pt reported black stool Narrative: 73 yo male currently undergoing chemotx for esophageal cancer. He presented with the concern of an upper GI bleed d/t noting black stool. No CP/palpitations, shortness of breath. + upper back pain that was evaluated with a chest CT that was negative for pathology. Stool in ED was heme negative. His hemoglobin was 11.2 with repeat of 11.4. Hgbs earlier this month were in the 10's range. VSS w/o tachycardia, hypotension. He is not on anticoagulation therapy. He was not volume depleted. Oral intake has not been inadequate. Asked to admit patient for observation. He did not meet admission criteria per [facility]. He will return for any concerning symptoms. 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 Discussed the issue of not meeting criteria for admission. Gave reassurance and what to watch for that would prompt an EMS call for a return evaluation. His sister was very concerned about this plan but then appeared to be more accepting. ED physician repeating an H/H at 1999. Results Last Vital Signs Temp 37 C 03/29/23 13:23 Pulse 62 03/29/23 16:30 Resp 16 03/29/23 13:23 BP 118/60 03/29/23 16:30 Pulse Ox 98 03/29/23 16:30 Labs 03/29/23 20:00 03/29/23 13:36 Labs: Laboratory Results - last 24 hr 03/29/23 03/29/23 03/29/23 13:36 13:36 13:36 WBC 4.68 RBC 3.62 L Hgb 11.2 L Hct 34.8 L MCV 96 H MCH 30.9 MCHC 32.2 RDW 16.8 H Plt Count 102 L MPV 12.5 H Immature Gran % 0.4 Neutrophils % 59.2 Lymphocytes % 19.0 Monocytes % 15.2 Eosinophils % 5.1 Basophils % 1.1 Nucleated RBC % 0.0 Absolute Neutrophils 2.77 Absolute Lymphocytes 0.89 L Absolute Monocytes 0.71 Absolute Eosinophils 0.24 Absolute Basophils 0.05 PT 10.7 INR 1.1 Sodium 141 Potassium 4.2 Chloride 107 Carbon Dioxide 29.9 Anion Gap 4.1 BUN 17 Creatinine 1.0 Est GFR (CKD-EPI 2020) 80.47 Glucose 101 Calcium 9.6 Magnesium 1.8 Total Bilirubin 0.4 AST 26 ALT 23 Alkaline Phosphatase 110 Troponin I < 50 Total Protein 6.6 Albumin 2.8 L Patient ABO/Rh Antibody Screen 03/29/23 03/29/23 03/29/23 13:36 16:20 16:50 WBC RBC Hgb 11.4 L Hct 35.1 L MCV MCH MCHC RDW Plt Count MPV Immature Gran % Neutrophils % Lymphocytes % Monocytes % Eosinophils % Basophils % Nucleated RBC % Absolute Neutrophils Absolute Lymphocytes Absolute Monocytes Absolute Eosinophils Absolute Basophils PT INR Sodium Potassium Chloride Carbon Dioxide Anion Gap BUN Creatinine Est GFR (CKD-EPI 2020) Glucose Calcium Magnesium Total Bilirubin AST ALT Alkaline Phosphatase Troponin I < 50 Total Protein Albumin Patient ABO/Rh B Positive Antibody Screen NEGATIVE
--- NOTE | 2023-03-29 19:15 | NUR.NOTE ---
Nursing Note: Assumed care of patient at 1900. Received report from Jennifer Perez RN. Patient sitting in bed comfortable, alert and oriented, family member at bedside. Patient eating dinner.
[2023-03-29 20:09] LABS: HCT 33.8 % (40.0-50.0); HGB 11.2 g/dL (13.5-17.5)
--- NOTE | 2023-03-29 20:40 | NUR.NOTE ---
Referral faxed to [facility] to f/u within a week for Upper GI Bleed.Nursing Note:
--- NOTE | 2023-03-29 20:42 | ED.PROG_ITS ---
Date of service: 03/29/23 Time of Service: 20:42 Medical Decision Making Patient was signed out to me by my colleague Dr. Cates. Please refer to his HPI, physical exam, assessment and plan. At time of signout plan was to follow- up on repeat hemoglobin level, and if stable expected discharge. Patient had be en here for some dark tarry stools. Work-up showed stability of hemoglobin, but a slight drop. Initial discussion was made regarding potential admission/observation versus discharge. Discussion with hospitalist and the hospitalist coming down and speaking with the patient led to a shared decision- making process with the hospitalist and patient preferred to advance and continue on an outpatient basis. Repeat hemoglobin has returned and remained stable. Repeat assessment of the patient shows no evidence concerning for symptoms of Boerhaave tear, Jennifer-Mohan tear, ACS, or other significant acute life-threatening etiology at this time. I had a long discussion with the patient and his sister who is at bedside. I did offer for the patient to continue to be observed here in the ED for the next 6, 8, or 12 hours. Patient has declined and is requesting to go home. Sister who is at bedside does have some concerns, but also states that it is the patient's decision. I have made it unequivocally clear to the patient and the sister that if anything changes or worsens and the patient needs to return immediately for reassessment. Patient understands this. I will place outpatient surgical referral for the patient as well for close follow-up, additionally we will start the patient on Protonix out of an abundance of precaution. Discussed red flags for which to return. I have extensively reviewed the treatment plan and discharge instructions with the patient and their family. I have addressed all patient concerns at this time. The patient and family was made aware of what symptoms to monitor for that would warrant a return to the emergency department. Discussed the plan with the patient and family, they demonstrate verbal understanding and agreement with our assessment and plan at this time. The documentation in this chart was dictated using [employer] dictation software. Please excuse any dictation errors. Sign Out Sign Out Data: Sign Out Comment: Please follow-up H&H and discharge if stable based on contingent discharge instructions with strict return indications. Last updated by Abdifatah Cates MD at 03/29/23 19:15 Discharge Plan Discharge Details Chief Complaint: GI Bleed Clinical Impression: Black stools, Decubitus ulcer of sacral region, Thrombocytopenia, Macrocytic anemia, Splenomegaly Primary Care Provider: Williams Suárez ED Provider: Mario Ruiz Home Meds and New Rx's Prescriptions: New pantoprazole [Protonix] 40 mg tablet,delayed release (DR/EC) 40 mg PO DAILY Qty: 30 0RF Continued zolpidem [Ambien] 10 mg Tablet 10 mg PO HS ondansetron 4 mg Tablet,Disintegrating 4 mg PO DAILY oxycodone 5 mg Tablet 5 mg PO PRN PRN Discharge Instructions Instructions: Gastrointestinal Bleeding (ED) Additional Instructions: Please read all of the information that accompanies these instructions. You were seen in the emergency department for your black stools. Your blood work showed no sign of any active bleeding. Please schedule an appointment with your primary care provider later this week. Please return to the emergency department if develop any black stools pass out or if you have any other concerns. We have placed a referral with the surgeons on-call. Please follow-up closely with them as well. Please take the Protonix as directed. It is been sent to your pharmacy on file.
[2023-03-29] MEDS: Pantoprazole 40 MG VIAL IVP (20:45)
== END 2023-03-29 20:57 | disposition home or self-care (01) ==
PROVIDERS: Emergency Medicine; Emergency Provider Student in an Organized Health Care Education/Training Program; PCP Family Medicine
DX: C15.9 Malignant neoplasm of esophagus, unspecified (principal); R16.1 Splenomegaly, not elsewhere classified; D53.9 Nutritional anemia, unspecified; D69.6 Thrombocytopenia, unspecified; K92.1 Melena; L89.159 Pressure ulcer of sacral region, unspecified stage
CPT/HCPCS: 36415; 71275; 74177; 80053; 86850; 86900; 86901; 93005; 96374; 96375; 99285; 83735; 84484; 85014; 85018; 85025; 85610; 93010; 99284; J3490

== ENCOUNTER 2023-05-02 02:50 | Outpatient (RCR) | payer MEDICARE, SELFPAY ==
[2023-04-04 00:15] VITALS: BP 95/60; PULSE 67; RESP 16; TEMP 36.2
[2023-04-04] MEDS: Normal Saline Flush 10 ML SYR IVP (09:12)
[2023-04-04 09:25] LABS: Abs Immature Grans 0.01 10^3/uL (0.0-0.06); Absolute Basophil Count 0.07 10^3/uL (0.0-0.2); Absolute Lymphocyte Count 0.86 10^3/uL (1.2-3.4); Absolute Monocyte Count 0.44 10^3/uL (0.1-0.8); Absolute Neutrophil Count 2.84 10^3/uL (1.2-6.7); Basophils % 1.5; Eosinophils % 6.6; HCT 33.8 % (40.0-50.0); HGB 11.1 g/dL (13.5-17.5); Immature Grans % 0.2; MCH 30.7 pg (27.0-33.0); MCHC 32.8 % (32.0-36.0); MCV 94 fL (80-95); MPV 11.4 fL (8.0-11.0); Monocytes % 9.7; RBC 3.61 10^6/uL (4.36-5.78); RDW 16.4 % (11.8-14.1); WBC 4.52 10^3/uL (4.4-10.8)
[2023-04-04 09:42] LABS: Platelet Count 96 10^3/uL (130-400)
[2023-04-04 09:47] LABS: ALT 19 U/L (16-63); AST 23 U/L (15-37); Albumin 2.8 g/dL (3.4-5.0); Alkaline Phosphatase 98 U/L (46-116); Anion Gap 9.2 mmol/L (3-11); BUN 19 mg/dL (7-18); Bilirubin, Total 0.5 mg/dL (0.2-1.0); CO2 27.8 mmol/L (21.0-32.0); CREATININE 1.1 mg/dL (0.70-1.30); Calcium 9.5 mg/dL (8.5-10.1); Chloride 107 mmol/L (98-107); Estimated GFR 71.77 (mL/min/1.73m2); Glucose 159 mg/dL (74-106); Potassium 3.8 mmol/L (3.5-5.1); Sodium 144 mmol/L (136-145); Total Protein 6.7 g/dL (6.4-8.2)
[2023-04-04 15:36] LABS: FREE T4 0.84 ng/dL (0.76-1.46); TSH 6.13 uIU/mL (0.36-3.74)
[2023-04-07 10:12] LABS: CEA 1.7 ng/mL (See Note)
[2023-04-18] MEDS: Normal Saline Flush 10 ML SYR IVP (08:45)
[2023-04-18 09:06] LABS: Abs Immature Grans 0.01 10^3/uL (0.0-0.06); Absolute Basophil Count 0.06 10^3/uL (0.0-0.2); Absolute Eosinophil Count 0.44 10^3/uL (0.0-0.7); Absolute Lymphocyte Count 0.92 10^3/uL (1.2-3.4); Basophils % 1.4; Eosinophils % 10.4; HCT 33.6 % (40.0-50.0); HGB 11.1 g/dL (13.5-17.5); Immature Grans % 0.2; Lymphocytes % 21.7; MCH 30.9 pg (27.0-33.0); MCV 94 fL (80-95); MPV 11.9 fL (8.0-11.0); Monocytes % 9.5; Neutrophils % 56.8; RBC 3.59 10^6/uL (4.36-5.78); RDW 15.3 % (11.8-14.1); RDW-SD 53.1 fL; WBC 4.23 10^3/uL (4.4-10.8)
[2023-04-18 09:28] LABS: ALT 25 U/L (16-63); AST 28 U/L (15-37); Albumin 2.7 g/dL (3.4-5.0); Alkaline Phosphatase 102 U/L (46-116); Anion Gap 6.1 mmol/L (3-11); BUN 14 mg/dL (7-18); Bilirubin, Total 0.6 mg/dL (0.2-1.0); CO2 27.9 mmol/L (21.0-32.0); CREATININE 1.2 mg/dL (0.70-1.30); Calcium 9.6 mg/dL (8.5-10.1); Chloride 107 mmol/L (98-107); Estimated GFR 64.65 (mL/min/1.73m2); Glucose 133 mg/dL (74-106); Potassium 3.6 mmol/L (3.5-5.1); Sodium 141 mmol/L (136-145); TSH 34.43 uIU/mL (0.36-3.74); Total Protein 6.8 g/dL (6.4-8.2)
[2023-04-18 09:31] LABS: Platelet Count 88 10^3/uL (130-400)
[2023-04-18 09:32] LABS: Diff Comment Diff Reviewed; RBC Morphology Normal
[2023-04-20] MEDS: Heparin 500 UNITS/5 ML SYRINGE IV (10:15)
[2023-04-20] MEDS: Normal Saline Flush 10 ML SYR IVP (10:15)
[2023-05-02] MEDS: Normal Saline Flush 10 ML SYR IVP (09:10)
[2023-05-02 09:16] LABS: Absolute Basophil Count 0.05 10^3/uL (0.0-0.2); Absolute Eosinophil Count 0.28 10^3/uL (0.0-0.7); Absolute Lymphocyte Count 0.81 10^3/uL (1.2-3.4); Absolute Monocyte Count 0.38 10^3/uL (0.1-0.8); Absolute Neutrophil Count 2.42 10^3/uL (1.2-6.7); Basophils % 1.3; Eosinophils % 7.1; HCT 32.4 % (40.0-50.0); HGB 10.7 g/dL (13.5-17.5); Lymphocytes % 20.6; MCH 30.9 pg (27.0-33.0); MCV 94 fL (80-95); MPV 11.2 fL (8.0-11.0); Monocytes % 9.6; Neutrophils % 61.4; RBC 3.46 10^6/uL (4.36-5.78); RDW 15.6 % (11.8-14.1); RDW-SD 53.1 fL; WBC 3.94 10^3/uL (4.4-10.8)
[2023-05-02 09:30] LABS: Platelet Count 70 10^3/uL (130-400)
[2023-05-02 09:31] LABS: Diff Comment PLT Morph Reviewed; RBC Morphology Normal
[2023-05-02 09:41] LABS: ALT 23 U/L (16-63); AST 24 U/L (15-37); Albumin 2.7 g/dL (3.4-5.0); Alkaline Phosphatase 90 U/L (46-116); Anion Gap 5.9 mmol/L (3-11); BUN 16 mg/dL (7-18); Bilirubin, Total 0.5 mg/dL (0.2-1.0); CO2 29.1 mmol/L (21.0-32.0); CREATININE 1.1 mg/dL (0.70-1.30); Calcium 9.7 mg/dL (8.5-10.1); Chloride 108 mmol/L (98-107); Estimated GFR 71.77 (mL/min/1.73m2); Glucose 103 mg/dL (74-106); Sodium 143 mmol/L (136-145); TSH 50.85 uIU/mL (0.36-3.74); Total Protein 6.5 g/dL (6.4-8.2)
[2023-05-02 10:59] LABS: FREE T4 0.81 ng/dL (0.76-1.46)
[2023-05-02 18:34] LABS: CEA 1.6 ng/mL (See Note)
== END 2023-05-03 23:59 | disposition home or self-care (01) ==
LOC: INF 02:50
PROVIDERS: PCP Family Medicine; Visit Provider Internal Medicine Hematology & Oncology
DX: Z79.899 Other long term (current) drug therapy (principal); C15.9 Malignant neoplasm of esophagus, unspecified; Z45.2 Encounter for adjustment and management of vascular access device
CPT/HCPCS: 36591; 80053; 96523; 82378; 84439; 84443; 85025

== ENCOUNTER → 2023-05-27 01:46 | Outpatient (CLI) | payer MEDICARE, SELFPAY ==
--- NOTE | 2023-05-27 | DI.CT_ITS ---
Exam(s) CT CHEST/ABD/PEL W EXAM: CT CHEST/ABD/PEL W CLINICAL HISTORY: ESOPHAGEAL CANCER C15.9 ASSESS TREATMENT RESPONSE. TECHNIQUE: Imaging Protocol: Axial computed tomography images with coronal and sagittal reformatted images were created and reviewed CONTRAST MATERIAL: Intravenous: Omnipaque 350 Contrast volume:100 ml Oral: yes / COMPARISON: CR,XR XR PORTABLE CHEST AP from 12/24/[address] CHEST PE ABD PELVIS W from 03/29/2023 FINDINGS: CHEST: Esophagus: Diffuse wall thickening from the level of the aortic arch, greater distally. Contrast not ed in esophagus, consistent with reflux. No focal mass visible. Tracheobronchial tree: Patent where visualized. Pulmonary parenchyma: Fibrotic changes, greater peripherally and at the lung bases. No consolidation or dominant measurable mass. Pleura: No effusion or pneumothorax. Lymph nodes: Within normal limits. Aorta: Thoracic portion non-dilated. Heart: Normal size. [id number] coronary artery calcifications. No pericardial effusion. Bones: Degenerative changes.. No lytic or blastic lesions.No compression fractures. ABDOMEN and PELVIS: Liver: Nodular contour consistent with cirrhosis. Normal density. No measurable mass. Gallbladder and biliary tract: No evidence of stones or wall thickening. No biliary dilatation. Pancreas: Normal density, no abnormal calcifications or inflammatory process. Spleen: Enlarged. Kidneys: Normal size, contour and axis. No radiodense stones or obstructive uropathy. No suspicious m asses seen. Adrenal glands: No masses seen. Aorta: Abdominal portion non-dilated. Mild atherosclerotic changes. Lymph nodes: Within normal limits. Soft tissues: Small fatty containing left inguinal hernia. Bladder: Unremarkable. Bowel: Large quantity of stool. No obstruction or bowel wall thickening. Peritoneal cavity: No ascites. No focal collection or mesenteric inflammatory response. Bones: No lytic or blastic lesions. Degenerative changes present in the spine. Stable mild compre ssion fracture of the superior endplate of L3. Reproductive organs: Within normal limits. IMPRESSION: Esophageal wall thickening without visible focal mass. No evidence of adenopathy or metastatic disease in the chest abdomen or pelvis. RADIATION DOSE DELIVERED: Total DLP DATA REPOSITORY: All CT scans at this facility are submitted to the National Radiology Data Registry (NRDR) Dose Index Registry (DIR) with the [employer] (A[employer]). RADIATION OPTIMIZATION: All CT scans at this facility use at least one of these dose optimization te chniques: automated exposure control; mA and/or kV adjustment per patient size (includes targeted exa ms where dose is matched to clinical indication); or iterative reconstruction.
[2023-05-27] MEDS: Barium Sulfate 2% W/V-Berry Smoothie 450 ML BTL PO (09:07)
[2023-05-27] MEDS: Barium Sulfate 2% W/V-Creamy Vanilla Smoothie 450 ML BTL PO (09:08)
[2023-05-27] MEDS: Omnipaque 350 MG/ML 500 ML BTL-Imaging package IJ (11:20)
[2023-05-27] MEDS: Normal Saline - Diluent 50 ML VIAL IJ (11:20)
== END ==
PROVIDERS: PCP Family Medicine; Visit Provider Nurse Practitioner Family
DX: C15.9 Malignant neoplasm of esophagus, unspecified (principal); Z08 Encounter for follow-up examination after completed treatment for malignant neoplasm
CPT/HCPCS: 36591; 74177; 80053; 71260; 82378; 84439; 84443; 85025; J1642

== ENCOUNTER 2023-06-01 00:24 | Outpatient (RCR) | payer MEDICARE, SELFPAY ==
[2023-05-04 00:05] VITALS: BP 95/60; PULSE 67; RESP 16; TEMP 36.2
[2023-05-16] MEDS: Normal Saline Flush 10 ML SYR IVP (10:47)
[2023-05-16 11:13] LABS: Abs Immature Grans 0.01 10^3/uL (0.0-0.06); Absolute Basophil Count 0.06 10^3/uL (0.0-0.2); Absolute Eosinophil Count 0.26 10^3/uL (0.0-0.7); Absolute Lymphocyte Count 0.89 10^3/uL (1.2-3.4); Absolute Monocyte Count 0.51 10^3/uL (0.1-0.8); Absolute Neutrophil Count 2.33 10^3/uL (1.2-6.7); Basophils % 1.5; Eosinophils % 6.4; HCT 34.3 % (40.0-50.0); HGB 11.5 g/dL (13.5-17.5); Immature Grans % 0.2; Lymphocytes % 21.9; MCH 31.3 pg (27.0-33.0); MCHC 33.5 % (32.0-36.0); MCV 94 fL (80-95); MPV 11.4 fL (8.0-11.0); Monocytes % 12.6; Neutrophils % 57.4; RBC 3.67 10^6/uL (4.36-5.78); RDW 15.2 % (11.8-14.1); RDW-SD 52.2 fL; WBC 4.06 10^3/uL (4.4-10.8)
[2023-05-16 11:19] LABS: ALT 25 U/L (16-63); AST 24 U/L (15-37); Albumin 2.9 g/dL (3.4-5.0); Alkaline Phosphatase 92 U/L (46-116); Anion Gap 4.9 mmol/L (3-11); BUN 16 mg/dL (7-18); Bilirubin, Total 0.6 mg/dL (0.2-1.0); CO2 28.1 mmol/L (21.0-32.0); CREATININE 1.1 mg/dL (0.70-1.30); Calcium 9.5 mg/dL (8.5-10.1); Chloride 107 mmol/L (98-107); Estimated GFR 71.77 (mL/min/1.73m2); Glucose 97 mg/dL (74-106); Potassium 4.1 mmol/L (3.5-5.1); Sodium 140 mmol/L (136-145)
[2023-05-16 11:41] LABS: Diff Comment Diff Reviewed; Platelet Count 83 10^3/uL (130-400); RBC Morphology Normal
[2023-05-16 13:08] LABS: FREE T4 1.11 ng/dL (0.76-1.46); TSH 11.95 uIU/mL (0.36-3.74)
[2023-05-16 19:40] LABS: CEA 1.5 ng/mL (See Note)
[2023-05-18 12:29] VITALS: BP 110/62; PULSE 68; RESP 16; TEMP 36.6; O2SAT 94
[2023-05-18] MEDS: Normal Saline Flush 10 ML SYR IVP (12:44)
[2023-05-18] MEDS: Heparin 500 UNITS/5 ML SYRINGE IV (12:44)
[2023-05-27] MEDS: Normal Saline Flush 10 ML SYR IVP (08:52)
[2023-05-27] MEDS: Heparin 500 UNITS/5 ML SYRINGE IV (08:52)
[2023-05-27 09:11] LABS: Abs Immature Grans 0.01 10^3/uL (0.0-0.06); Absolute Basophil Count 0.07 10^3/uL (0.0-0.2); Absolute Eosinophil Count 0.19 10^3/uL (0.0-0.7); Absolute Lymphocyte Count 0.66 10^3/uL (1.2-3.4); Absolute Monocyte Count 0.75 10^3/uL (0.1-0.8); Absolute Neutrophil Count 2.53 10^3/uL (1.2-6.7); Basophils % 1.7; Eosinophils % 4.5; HCT 34.4 % (40.0-50.0); HGB 11.5 g/dL (13.5-17.5); Immature Grans % 0.2; Lymphocytes % 15.7; MCH 31.2 pg (27.0-33.0); MCHC 33.4 % (32.0-36.0); MCV 93 fL (80-95); MPV 11.3 fL (8.0-11.0); Monocytes % 17.8; Neutrophils % 60.1; RBC 3.69 10^6/uL (4.36-5.78); RDW 15.4 % (11.8-14.1); RDW-SD 51.8 fL; WBC 4.21 10^3/uL (4.4-10.8)
[2023-05-27 09:23] LABS: Diff Comment Diff Reviewed; Platelet Count 88 10^3/uL (130-400); RBC Morphology Normal
[2023-05-27 09:34] LABS: ALT 27 U/L (16-63); AST 25 U/L (15-37); Albumin 2.8 g/dL (3.4-5.0); Alkaline Phosphatase 98 U/L (46-116); Anion Gap 5.8 mmol/L (3-11); BUN 18 mg/dL (7-18); Bilirubin, Total 0.4 mg/dL (0.2-1.0); CO2 29.2 mmol/L (21.0-32.0); CREATININE 1.1 mg/dL (0.70-1.30); Calcium 9.6 mg/dL (8.5-10.1); Chloride 104 mmol/L (98-107); Estimated GFR 71.77 (mL/min/1.73m2); FREE T4 0.98 ng/dL (0.76-1.46); Glucose 112 mg/dL (74-106); Potassium 3.9 mmol/L (3.5-5.1); Sodium 139 mmol/L (136-145); TSH 21.89 uIU/mL (0.36-3.74); Total Protein 6.8 g/dL (6.4-8.2)
[2023-05-27 19:39] LABS: CEA 1.6 ng/mL (See Note)
[2023-06-01 09:43] VITALS: BP 99/57; PULSE 58; RESP 18; TEMP 35.6; O2SAT 98
[2023-06-01] MEDS: Normal Saline Flush 10 ML SYR IVP (10:00)
[2023-06-01] MEDS: Heparin 500 UNITS/5 ML SYRINGE IV (10:00)
== END 2023-06-03 23:59 | disposition home or self-care (01) ==
LOC: INF 00:24
PROVIDERS: PCP Family Medicine; Visit Provider Internal Medicine Hematology & Oncology
DX: Z79.899 Other long term (current) drug therapy (principal); C15.9 Malignant neoplasm of esophagus, unspecified; Z45.2 Encounter for adjustment and management of vascular access device
CPT/HCPCS: 36591; 80053; 96523; 82378; 84439; 84443; 85025; J1642

== ENCOUNTER 2023-06-13 03:57 | Outpatient (RCR) | payer MEDICARE, SELFPAY ==
[2023-06-04 00:17] VITALS: BP 95/60; PULSE 67; RESP 16; TEMP 36.2
[2023-06-13 08:08] LABS: Abs Immature Grans 0.02 10^3/uL (0.0-0.06); Absolute Basophil Count 0.05 10^3/uL (0.0-0.2); Absolute Eosinophil Count 0.23 10^3/uL (0.0-0.7); Absolute Lymphocyte Count 0.57 10^3/uL (1.2-3.4); Absolute Monocyte Count 0.71 10^3/uL (0.1-0.8); Absolute Neutrophil Count 2.44 10^3/uL (1.2-6.7); Basophils % 1.2; Eosinophils % 5.7; HGB 10.7 g/dL (13.5-17.5); Immature Grans % 0.5; Lymphocytes % 14.2; MCH 30.1 pg (27.0-33.0); MCHC 33.4 % (32.0-36.0); MCV 90 fL (80-95); MPV 10.9 fL (8.0-11.0); Monocytes % 17.7; Neutrophils % 60.7; Platelet Count 109 10^3/uL (130-400); RBC 3.56 10^6/uL (4.36-5.78); RDW 14.9 % (11.8-14.1); RDW-SD 48.7 fL; WBC 4.02 10^3/uL (4.4-10.8)
[2023-06-13 08:34] LABS: ALT 22 U/L (16-63); AST 26 U/L (15-37); Albumin 2.5 g/dL (3.4-5.0); Alkaline Phosphatase 90 U/L (46-116); BUN 17 mg/dL (7-18); Bilirubin, Total 0.7 mg/dL (0.2-1.0); CREATININE 1.1 mg/dL (0.70-1.30); Calcium 9.5 mg/dL (8.5-10.1); Chloride 103 mmol/L (98-107); Estimated GFR 71.77 (mL/min/1.73m2); FREE T4 1.43 ng/dL (0.76-1.46); Glucose 100 mg/dL (74-106); Potassium 3.9 mmol/L (3.5-5.1); Sodium 138 mmol/L (136-145); TSH 6.94 uIU/mL (0.36-3.74); Total Protein 6.8 g/dL (6.4-8.2)
[2023-06-13] MEDS: Normal Saline Flush 10 ML SYR IVP (09:20)
== END 2023-07-03 23:59 | disposition home or self-care (01) ==
LOC: INF 03:57
PROVIDERS: PCP Family Medicine; Visit Provider Internal Medicine Hematology & Oncology
DX: C15.9 Malignant neoplasm of esophagus, unspecified (principal); Z79.899 Other long term (current) drug therapy; Z45.2 Encounter for adjustment and management of vascular access device
CPT/HCPCS: 36591; 80053; 82378; 84439; 84443; 85025

== ENCOUNTER 2023-06-16 07:16 | Inpatient (IN) | payer MEDICARE, SELFPAY ==
[2023-06-16] VITALS (61 sets, daily range): BP systolic 84–172; BP diastolic 48–89; PULSE 49–117; RESP 13–57; TEMP 35–37.9; O2SAT 64–97
--- NOTE | 2023-06-16 07:15 | RT.EKG_ITS ---
APPROVED REPORT Exam: Resting ECG Reason for Exam: near syncope Patient Location: E HR:103 bpm ECG Measurements Heart Rate 103 AXIS MT 186 P 4 QRSd 102 QRS -8 QT 341 T 34 QTc 446 Conclusion Sinus tachycardia...rate> [address] segment or T wave abnormalities to suggest occlusive FL
--- NOTE | 2023-06-16 07:15 | DI.CT_ITS ---
Exam(s) CT HEAD WO EXAM: CT HEAD WO CLINICAL HISTORY: fall, HS (known brain mets). TECHNIQUE: Imaging Protocol: Axial computed tomography images with coronal and sagittal reformatted images were created and reviewed COMPARISON: No exams were available for comparison FINDINGS: Right forehead small hematoma and gas in the soft tissues implying element of laceration. There is n o radiopaque foreign body. Subjacent frontal sinuses unremarkable. There is no fluid in the visuali zed paranasal sinuses. There are no skull fractures. [place] hole channel in the right frontal skull noted as is a posterior f lavern osteotomy site. There is no evidence of intracranial hemorrhage, mass effect, or shift of midline structures. There are no extra-axial fluid collections. The ventricles are not enlarged or shifted and there is no blo od within the ventricular system nor within the basal cisterns. There is symmetrical atrophy. There is also evidence of encephalomalacia in the superior aspect of t he left cerebellar hemisphere. Subjacent to the posterior fossa osteotomy site. Also area of enceph alomalacia in the right frontal lobe subjacent to the bouchra hole region. Apparently prior procedures due to known metastatic lesions in the brain. IMPRESSION: Evidence of encephalomalacia in the superior left cerebellar hemisphere and right frontal lobe. Ther e has been prior posterior fossa craniotomy as well as right frontal bouchra hole, apparently for proced ures on metastatic lesions. Right frontal forehead region scalp hematoma. No foreign body. RADIATION DOSE DELIVERED: Total DLP DATA REPOSITORY: All CT scans at this facility are submitted to the National Radiology Data Registry (NRDR) Dose Index Registry (DIR) with the [employer] (ACR). RADIATION OPTIMIZATION: All CT scans at this facility use at least one of these dose optimization te chniques: automated exposure control; mA and/or kV adjustment per patient size (includes targeted exa ms where dose is matched to clinical indication); or iterative reconstruction.
--- NOTE | 2023-06-16 07:24 | ED.GENADUL_ITS ---
Discharge Plan Disposition Patient Disposition: Admit to [facility] Condition: Good Discharge Details Chief Complaint: Fall/Non TraumaCriteria Clinical Impression: Leukopenia, Sepsis, Malignancy, Pneumonia Primary Care Provider: Williams Suárez ED Provider: Betty Torrez Home Meds and New Rx's Prescriptions: No Action potassium chloride 20 mEq tablet extended release 20 meq PO DAILY fluoxetine 20 mg capsule 20 mg PO DAILY levothyroxine 75 mcg capsule 75 mcg PO DAILY zolpidem [Ambien] 10 mg Tablet 10 mg PO HS fluoxetine 40 mg capsule 40 mg PO DAILY Patient Comments: TAKE 1 CAPSULE BY MOUTH ONCE DAILY levothyroxine 100 mcg tablet 100 mcg PO DAILY Patient Comments: TAKE 1 TABLET BY MOUTH ONCE DAILY potassium chloride 20 mEq tablet,ER particles/crystals 20 meq PO DAILY Patient Comments: TAKE 1 BY MOUTH ONCE DAILY pantoprazole 40 mg tablet,delayed release (DR/EC) 40 mg PO DAILY Patient Comments: TAKE 1 TABLET BY MOUTH ONCE DAILY oxycodone 5 mg tablet 5 mg PO ONCE PRN Patient Comments: TAKE 1 TABLET BY MOUTH EVERY 4 HOURS NEEDED FOR PAIN mirtazapine 7.5 mg tablet 7.5 mg PO DAILY Patient Comments: TAKE 1 TABLET BY MOUTH NIGHTLY Medical Decision Making 73yo M with 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 Last chemo two weeks ago. [place] lightheaded while standing up from toilet, fell forward and struck his head. No LOC. Not on AC. No neurologic symptoms. Tachycardiac on arrival to low 100's, borderline febrile. Reports rhinnorhea and nasal congestion for the past several days, otherwise denies infectious symptoms; no nausea, vomiting, or dysuria. Given tyelnol for headache and temp, 1L IVFB. Physical exam reassuring with no focal neurologic deficits, echymosis and abrasion to right forehead with no other significant traumatic findings. C-spine clinically cleared. No indication for imaging of spine/chest/abd/pelvis or extremities. No chest pain or shortness of breath to suggest acute coronary syndrome or pulmonary embolism. EKG with appropriate intervals, no ST segment or T wave abnormalities to suggest occlusive NV. Labs reviewed as below, CBC with pancytopenia (3.4, 11.1, 128), CMP with no actionable abnormalities, TSH elevated with normal T4, initial troponin negative, lactate elevated at 2.3. Normal ANC. With leukopenia, tachycardia, elevated lactate meets criteria for severe sepsis. Started on broad spectrum abx & given second 1L IVFB. Covid negative. CT head independently reviewed, no intracranial hemmoraghe on my view, agree with radiology read below. CXR independently reviewed, agree with radiology read below, questionable pneumonia when compared to prior scans. Discussed with hospitalist Dr. Garvin, accepted to medicine service. UA, repeat trop/lactic pending. Awaiting transfer to the floor. Imaging Data Radiologic Study: Imaging: CT Scan Radiologist's impression: IMPRESSION: Evidence of encephalomalacia in the superior left cerebellar hemisphere and right frontal lobe. There has been prior posterior fossa craniotomy as well as right frontal bouchra hole, apparently for procedures on metastatic lesions. Right frontal forehead region scalp hematoma. No foreign body. Radiologic Study #2: Imaging: X-Ray Radiologist's impression: IMPRESSION: Possible subtle infiltrate superimposed upon chronic interstitial disease. Noncalcified nodular density in the lower right lung field noted. This measures 1 cm. May represent breast nipple. If clinically indicated follow-up CT scan can be performed Lab Data Lab results reviewed: Yes I reviewed the patient's lab results. Labs: 06/16/23 10:02 Urine - Clean Catch Urine Culture - Pending 06/16/23 08:00 Blood Blood Culture - Pending 06/16/23 07:30 Blood Blood Culture - Pending Laboratory Tests Range/Units 06/16/23 06/16/23 06/16/23 07:30 07:33 10:02 WBC (4.4-10.8) 10^3/uL 3.41 L RBC (4.36-5.78) 10^6/uL 3.71 L Hgb (13.5-17.5) g/dL 11.1 L Hct (40.0-50.0) % 33.4 L MCV (80-95) fL 90 MCH (27.0-33.0) pg 29.9 MCHC (32.0-36.0) % 33.2 RDW (11.8-14.1) % 15.0 H Plt Count (130-400) 10^3/uL 128 L MPV (8.0-11.0) fL 10.7 Immature Gran % 0.6 Neutrophils % 67.8 Lymphocytes % 11.4 Monocytes % 16.1 Eosinophils % 3.2 Basophils % 0.9 Nucleated RBC % (0.0-0.3) % 0.0 Absolute Neutrophils (1.2-6.7) 10^3/uL 2.31 Absolute Lymphocytes (1.2-3.4) 10^3/uL 0.39 L Absolute Monocytes (0.1-0.8) 10^3/uL 0.55 Absolute Eosinophils (0.0-0.7) 10^3/uL 0.11 Absolute Basophils (0.0-0.2) 10^3/uL 0.03 VBG Lactate (0.6-1.4) mmol/L 2.3 H* Sodium (136-145) mmol/L 143 Potassium (3.5-5.1) mmol/L 3.6 Chloride (98-107) mmol/L 108 H Carbon Dioxide (21.0-32.0) mmol/L 26.2 Anion Gap (3-11) mmol/L 8.8 BUN (7-18) mg/dL 21 H Creatinine (0.70-1.30) mg/dL 1.2 Est GFR (CKD-EPI 2020) (mL/min/1.73m2) 64.65 Glucose (74-106) mg/dL 135 H Calcium (8.5-10.1) mg/dL 9.5 Magnesium (1.8-2.4) mg/dL 2.0 Total Bilirubin (0.2-1.0) mg/dL 0.6 AST (15-37) U/L 30 ALT (16-63) U/L 19 Alkaline Phosphatase (46-116) U/L 91 Troponin I (<or=60) ng/L < 50 Total Protein (6.4-8.2) g/dL 6.9 Albumin (3.4-5.0) g/dL 2.3 L TSH (0.36-3.74) uIU/mL 5.60 H Free T4 (0.76-1.46) ng/dL 1.22 Urine Color (Yellow) Yellow Urine Clarity (Clear) Clear Urine pH (5-8) 7.0 Ur Specific [place] (1.005-1.025) 1.020 Urine Protein (Negative) mg/dL Trace H Urine Ketones (Negative) mg/dL Negative Urine Blood (Negative) Trace-intact H Urine Nitrite (Negative) Negative Urine Bilirubin (Negative) Negative Urine Urobilinogen (Up to 0.2) mg/dL 1.0 H Ur Leukocyte Esterase (Negative) Negative Urine RBC (0-2) HPF 0-2 Urine WBC (0-5) HPF Negative Ur Epithelial Cells (Negative) HPF Negative Urine Crystals (Negative) HPF Negative Urine Bacteria (Negative) HPF Rare Urine Casts (Negative) LPF Negative Urine Mucus (Negative) Negative Urine Other (Negative) Negative Ur Culture Indicated? C&S Done As Ordered Urine Glucose (Negative) mg/dL Negative COVID-19 Source Nasopharynx SARS-CoV-2 (PCR) (Negative) Negative Influenza Type A (PCR) (Negative) Negative Influenza Type B (PCR) (Negative) Negative RSV (PCR) (Negative) Negative Range/Units 06/16/23 10:36 WBC (4.4-10.8) 10^3/uL RBC (4.36-5.78) 10^6/uL Hgb (13.5-17.5) g/dL Hct (40.0-50.0) % MCV (80-95) fL MCH (27.0-33.0) pg MCHC (32.0-36.0) % RDW (11.8-14.1) % Plt Count (130-400) 10^3/uL MPV (8.0-11.0) fL Immature Gran % Neutrophils % Lymphocytes % Monocytes % Eosinophils % Basophils % Nucleated RBC % (0.0-0.3) % Absolute Neutrophils (1.2-6.7) 10^3/uL Absolute Lymphocytes (1.2-3.4) 10^3/uL Absolute Monocytes (0.1-0.8) 10^3/uL Absolute Eosinophils (0.0-0.7) 10^3/uL Absolute Basophils (0.0-0.2) 10^3/uL VBG Lactate (0.6-1.4) mmol/L 1.9 H Sodium (136-145) mmol/L Potassium (3.5-5.1) mmol/L Chloride (98-107) mmol/L Carbon Dioxide (21.0-32.0) mmol/L Anion Gap (3-11) mmol/L BUN (7-18) mg/dL Creatinine (0.70-1.30) mg/dL Est GFR (CKD-EPI 2020) (mL/min/1.73m2) Glucose (74-106) mg/dL Calcium (8.5-10.1) mg/dL Magnesium (1.8-2.4) mg/dL Total Bilirubin (0.2-1.0) mg/dL AST (15-37) U/L ALT (16-63) U/L Alkaline Phosphatase (46-116) U/L Troponin I (<or=60) ng/L < 50 Total Protein (6.4-8.2) g/dL Albumin (3.4-5.0) g/dL TSH (0.36-3.74) uIU/mL Free T4 (0.76-1.46) ng/dL Urine Color (Yellow) Urine Clarity (Clear) Urine pH (5-8) Ur Specific [place] (1.005-1.025) Urine Protein (Negative) mg/dL Urine Ketones (Negative) mg/dL Urine Blood (Negative) Urine Nitrite (Negative) Urine Bilirubin (Negative) Urine Urobilinogen (Up to 0.2) mg/dL Ur Leukocyte Esterase (Negative) Urine RBC (0-2) HPF Urine WBC (0-5) HPF Ur Epithelial Cells (Negative) HPF Urine Crystals (Negative) HPF Urine Bacteria (Negative) HPF Urine Casts (Negative) LPF Urine Mucus (Negative) Urine Other (Negative) Ur Culture Indicated? Urine Glucose (Negative) mg/dL COVID-19 Source SARS-CoV-2 (PCR) (Negative) Influenza Type A (PCR) (Negative) Influenza Type B (PCR) (Negative) RSV (PCR) (Negative) HPI General Mode of arrival: EMS . Date/Time Provider Initiated Documentation: 06/16/23 07:20 . Limitations to Documentation: no limitations . Information obtained by: patient and EMS . 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 [place] lightheaded this morning upon waking. While getting up from the toilet, again felt lightheaded and fell forward, striking his head on his walker on the way down. Reports head pain, otherwise denies pain or injury. No chest pain, shortness of breath, numbness, weakness, nausea, vomiting, neck pain, or other concerns. Last chemo 2 weeks ago. Related Data Home Medications Medication Instructions Recorded Confirmed zolpidem 10 mg tablet (Ambien) 10 mg PO HS 12/24/22 06/16/23 fluoxetine 20 mg capsule 20 mg PO DAILY 05/07/23 06/16/23 levothyroxine 75 mcg capsule 75 mcg PO DAILY 05/07/23 06/16/23 potassium chloride 20 mEq 20 meq PO DAILY 05/07/23 06/16/23 tablet,extended release fluoxetine 40 mg capsule 40 mg PO DAILY 06/16/23 06/16/23 levothyroxine 100 mcg tablet 100 mcg PO DAILY 06/16/23 06/16/23 mirtazapine 7.5 mg tablet 7.5 mg PO DAILY 06/16/23 06/16/23 oxycodone 5 mg tablet 5 mg PO ONCE PRN 06/16/23 06/16/23 pantoprazole 40 mg tablet,delayed 40 mg PO DAILY 06/16/23 06/16/23 release potassium chloride 20 mEq 20 meq PO DAILY 06/16/23 06/16/23 tablet,extended release(part/cryst) General Stated Complaint: Fall/Non TraumaCriteria SHAYNA: 3 Review of Systems Narrative: see HPI PFSH All Active Problems (Updated 06/16/23 @ 11:30 by Betty Torrez MD) Pneumonia (Acute) Malignancy (Acute) Sepsis (Acute) Leukopenia (Acute) ACP (advance care planning) (Acute) At risk for loneliness (Acute) Depression (Chronic) Unintentional weight loss (Acute) Pressure injury, stage 1 (Acute) Difficulty swallowing (Acute) At risk for falls (Acute) Need for follow-up by home health service (Acute) Impaired instrumental activities of daily living (Acute) Esophageal cancer (Acute) Medical History History of fall Nicotine dependence Pathological fracture Presence of other vascular implants and grafts Pulmonary fibrosis 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 Social History Smoking/Tobacco Use Status: Never Smoking risk assessment performed?: Yes Substance use type: does not use Do you feel safe at home: Yes Do you feel safe in your relationship?: Yes Exam Narrative Exam Narrative: GENERAL: Alert, no acute distress. SKIN: Warm and well perfused. Echymosis and abrasion to right forehead, hemostatic. HEAD: Facial bones without deformities or tenderness. EYES: PERRL. No scleral icterus or conjunctival injection. Extraocular muscles intact without nystagmus or diplopia. No proptosis or enophthalmos. NOSE: No discharge, tenderness, laxity. No nasal septal hematoma. MOUTH: No malocclusion or trismus. Moist mucus membranes without blood. NECK: Trachea midline. No discolorations or edema. CV: Tachycardiac, regular. Normal s1 and s2. No murmurs, rubs, or gallops. PV: Radial pulses 2+ bilaterally and symmetric. Dorsalis pedis pulses 2+ bilaterally and symmetric. 2+ capillary refill. No extremity edema. CHEST: No abrasions or ecchymosis. Chest symmetric with respirations. No chest wall tenderness. Lungs are clear to auscultation bilaterally. ABDOMEN: No ecchymosis or abrasions. Soft, nondistended, nontender. BACK: No abrasions, skin openings, or ecchymosis. Spine without bony tenderness, no step offs. PELVIC: Pelvis stable, nontender to lateral compression MSK: No gross deformities or discolorations or lesions. Tolerates full range of motion of extremities without tenderness. NEURO: Alert and oriented to person, place, and time. GCS 15. Sensation grossly intact. Strength 5/5 in bilateral UE and LE. Finger to nose intact bilaterally. Course Vital Signs Vital signs: Vital Signs Temperature 37.9 C H 06/16/23 07:16 Pulse 107 H 06/16/23 07:16 Respiratory Rate 20 06/16/23 07:16 Blood Pressure 110/63 06/16/23 07:16 Pulse Oximetry 96 06/16/23 07:16 Temperature 37.9 C H 06/16/23 07:16 Temperature Source Tympanic 06/16/23 07:16 Pulse 107 H 06/16/23 07:16 Respiratory Rate 20 06/16/23 07:16 Respiratory Effort Short of Breath 06/16/23 07:21 Blood Pressure 110/63 06/16/23 07:16 Pulse Oximetry 96 06/16/23 07:16 Oxygen Delivery Method Nasal Cannula 06/16/23 07:16 Oxygen Flow Rate 2 06/16/23 07:16 Lab/Test Results Lab/Test Results: 06/16/23 07:20 Blood Blood Culture - Pending 06/16/23 07:20 Blood Blood Culture - Pending
[2023-06-16 07:42] LABS: Lactate 2.3 mmol/L (0.6-1.4)
[2023-06-16 07:43] LABS: Abs Immature Grans 0.02 10^3/uL (0.0-0.06); Absolute Basophil Count 0.03 10^3/uL (0.0-0.2); Absolute Eosinophil Count 0.11 10^3/uL (0.0-0.7); Absolute Lymphocyte Count 0.39 10^3/uL (1.2-3.4); Absolute Monocyte Count 0.55 10^3/uL (0.1-0.8); Absolute Neutrophil Count 2.31 10^3/uL (1.2-6.7); Basophils % 0.9; Eosinophils % 3.2; HCT 33.4 % (40.0-50.0); HGB 11.1 g/dL (13.5-17.5); Immature Grans % 0.6; Lymphocytes % 11.4; MCH 29.9 pg (27.0-33.0); MCHC 33.2 % (32.0-36.0); MCV 90 fL (80-95); MPV 10.7 fL (8.0-11.0); Monocytes % 16.1; Neutrophils % 67.8; Platelet Count 128 10^3/uL (130-400); RBC 3.71 10^6/uL (4.36-5.78); RDW-SD 48.6 fL; WBC 3.41 10^3/uL (4.4-10.8)
[2023-06-16] MEDS: Normal Saline 1,000 ML 1000 ML IV ×2 (08:02→09:01)
[2023-06-16] MEDS: Acetaminophen 500 MG TAB 1000 MG PO (08:02)
[2023-06-16] MEDS: PIPERACILLIN/TAZO 4.5 GM in Normal Saline 100 ML IVPB (08:02)
[2023-06-16 08:06] LABS: ALT 19 U/L (16-63); AST 30 U/L (15-37); Albumin 2.3 g/dL (3.4-5.0); Alkaline Phosphatase 91 U/L (46-116); Anion Gap 8.8 mmol/L (3-11); BUN 21 mg/dL (7-18); Bilirubin, Total 0.6 mg/dL (0.2-1.0); CO2 26.2 mmol/L (21.0-32.0); CREATININE 1.2 mg/dL (0.70-1.30); Calcium 9.5 mg/dL (8.5-10.1); Chloride 108 mmol/L (98-107); Estimated GFR 64.65 (mL/min/1.73m2); Glucose 135 mg/dL (74-106); Potassium 3.6 mmol/L (3.5-5.1); Sodium 143 mmol/L (136-145); Total Protein 6.9 g/dL (6.4-8.2); Troponin I < 50 ng/L (<or=60)
[2023-06-16 08:25] LABS: FREE T4 1.22 ng/dL (0.76-1.46)
[2023-06-16 08:37] LABS: COVID-19 PCR Negative (Negative); Influenza A PCR Negative (Negative); Influenza B PCR Negative (Negative); RSV PCR Negative (Negative)
[2023-06-16 08:38] LABS: Source Nasopharynx
[2023-06-16] MEDS: LINEZOLID 600 MG/300 ML BAG 300 MG IVPB (08:48)
--- NOTE | 2023-06-16 08:54 | DI.RAD_ITS ---
Exam(s) XR CHEST 2V PA LATERAL EXAM: XR CHEST 2V PA LATERAL CLINICAL HISTORY: fall, fever and URI symptoms. TECHNIQUE: 2D digital imaging was performed. COMPARISON: CR,XR XR PORTABLE CHEST AP from 12/24/2022 FINDINGS: 2 views: Distal tip of the Port-A-Cath is again noted in the right atrium. Heart size is normal. The mediastinum is not widened. Chronic interstitial lung disease findings again noted. There appear to be slightly increased markin gs was the lung bases. Cannot exclude subtle infiltrates. No pleural effusions. There is also a gamble btle nodular density in the lower half the right lung field may represent breast nipple. IMPRESSION: Possible subtle infiltrate superimposed upon chronic interstitial disease. Noncalcified nodular density in the lower right lung field noted. This measures 1 cm. May represent breast nipple. If clinically indicated follow-up CT scan can be performed DATA REPOSITORY: RADIATION DOSE DELIVERED:
[2023-06-16 10:13] LABS: Bilirubin Negative (Negative); Blood Trace-intact (Negative); Clarity Clear (Clear); Glucose Negative (Negative); Ketones Negative (Negative); Leukocyte Esterase Negative (Negative); Nitrite Negative (Negative)
[2023-06-16 10:21] LABS: Bacteria Rare HPF (Negative); C & S Indicated? C&S Done As Ordered; Casts Negative LPF (Negative); Crystals Negative HPF (Negative); Epithelial Cells Negative HPF (Negative); Mucus Negative (Negative); Other Cells Negative (Negative); RBC 0-2 HPF (0-2); WBC Negative HPF (0-5)
[2023-06-16 10:43] LABS: Lactate 1.9 mmol/L (0.6-1.4)
--- NOTE | 2023-06-16 10:50 | HPE_ITS ---
Date of service: 06/16/23 Time of Service: 16:09 Assessment and Plan Assessment and plan (1) Septic shock: Status: Acute Assessment and plan: - Patiet meets criteria for septic shock with initial presentation of tachycardia with heart rate greater than 100, leukopenia with a white blood cell count of 3.8, respiratory rate of 26, source of infection likely being a pneumonia -He received a total of 2.5 L she is greater then 30 cc/kg and mean arterial pressures remained below 65 -Thus patient is being transferred to the ICU to receive Levophed, titrate to goal mean arterial pressure greater than 65 -Initially started on linezolid and Zosyn in the emergency department -We will continue Zosyn, however will discontinue linezolid as patient already has mild thrombocytopenia and will also require anticoagulation during hospitalization -We will start vancomycin -Follow-up blood and sputum cultures -Lactic acid initially 2.3, decreased to 1.9 on repeat (2) Pneumonia: Status: Acute Assessment and plan: -Likely cause of septic shock as noted above -Treat as noted above Qualifiers: Pneumonia type: due to unspecified organism Laterality: unspecified laterality Lung location: unspecified part of lung Qualified Code(s): J18.9 - Pneumonia, unspecified organism (3) Leukopenia: Status: Acute Assessment and plan: - Likely due to combination of chemotherapy infection as noted above -Follow-up a.m. CBC Qualifiers: Leukopenia type: unspecified Qualified Code(s): D72.819 - Decreased white blood cell count, unspecified (4) Esophageal cancer: Status: Acute Assessment and plan: - Known to be metastatic to brain and lung -Patient was due to receive additional dose of chemotherapy today, will be unable to due to hospitalization -Has been seen by palliative care in the outpatient setting patient wishes to remain a full code -Will reconsult palliative care, appreciate their input and discussion with patient Qualifiers: Malignant neoplasm of esophagus location: unspecified location Qualified Code(s): C15.9 - Malignant neoplasm of esophagus, unspecified (5) Unintentional weight loss: Status: Acute Assessment and plan: - Due to esophageal cancer and chemotherapy as noted above History of Present Illness History of Present Illness Chief Complaint: fall, non-traumatic Narrative: 73-year-old male with a medical history of stage 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 Patient stated that he felt lightheaded upon standing up from the toilet causing him to fall forward and striking his head on his walker on the way down. He initially reported some pain to his head but denies any ongoing headache, bleeding, visual changes. Also denies any ongoing lightheadedness, dizziness, chest pain, shortness of breath or numbness. In the emergency department he was noted to have a temperature of 100.3 ?F, a pulse of 107, initial blood pressure of 110/63, respiratory rate of 26 and required 2 L nasal cannula to maintain oxygen saturation greater than 92%. CBC showed leukopenia with a white blood cell count of 3.4 which was roughly patient's baseline of about 4 hours mild thrombocytopenia with a platelet count of 128. BMP was unremarkable, TSH was 5.6, and troponin was negative, however initial lactic acid was 2.3. Head CT was negative as was urinalysis however patient did have a chest x-ray which showed subtle infiltrates superimposed on chronic interstitial disease. Patient was given 2 L fluid bolus, and started on Zosyn and linezolid. At which time emergency room physician paged hospitalist for admission for patient with severe sepsis secondary to presumed community- acquired pneumonia. However, shortly after reaching [facility] unit patient's mean arterial pressure was below 65 despite an additional 500 mL bolus of lactated Ringer's and thus the patient was transferred to the ICU for initiation of IV Levophed. Review of Systems All systems reviewed & are unremarkable except as noted in HPI and below PFSH All Active Problems (Updated 06/16/23 @ 16:19 by Moses Garvin MD) Septic shock (Acute) Pneumonia (Acute) Malignancy (Acute) Sepsis (Acute) Leukopenia (Acute) ACP (advance care planning) (Acute) At risk for loneliness (Acute) Depression (Chronic) Unintentional weight loss (Acute) Pressure injury, stage 1 (Acute) Difficulty swallowing (Acute) At risk for falls (Acute) Need for follow-up by home health service (Acute) Impaired instrumental activities of daily living (Acute) Esophageal cancer (Acute) Medical History (Updated 06/16/23 @ 16:19 by Moses Garvin MD) Thrombocytopenia History of fall Presence of other vascular implants and grafts Nicotine dependence Pathological fracture Pulmonary fibrosis 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 Meds Allergies and Home Medications Home Medications Medication Instructions Recorded Confirmed Type zolpidem 10 mg tablet (Ambien) 10 mg PO HS 12/24/22 06/16/23 History potassium chloride 20 mEq 20 meq PO DAILY 05/07/23 06/16/23 History tablet,extended release fluoxetine 40 mg capsule 40 mg PO DAILY 06/16/23 06/16/23 History levothyroxine 100 mcg tablet 100 mcg PO DAILY 06/16/23 06/16/23 History mirtazapine 7.5 mg tablet 7.5 mg PO DAILY 06/16/23 06/16/23 History oxycodone 5 mg tablet 5 mg PO ONCE PRN 06/16/23 06/16/23 History pantoprazole 40 mg tablet,delayed 40 mg PO DAILY 06/16/23 06/16/23 History release potassium chloride 20 mEq 20 meq PO DAILY 06/16/23 06/16/23 History tablet,extended release(part/cryst) Exam Narrative Exam Narrative: Frail, fatigued appearing older gentleman laying in bed in no acute distress, 2 L nasal cannula in place, AOx4, heart RRR, lungs with faint diffuse crackles throughout, abdomen soft, nontender, nondistended Results Labs 06/16/23 07:30 06/16/23 07:30 Labs: Laboratory Results - last 24 hr 06/16/23 06/16/23 06/16/23 07:30 07:33 10:02 WBC 3.41 L RBC 3.71 L Hgb 11.1 L Hct 33.4 L MCV 90 MCH 29.9 MCHC 33.2 RDW 15.0 H Plt Count 128 L MPV 10.7 Immature Gran % 0.6 Neutrophils % 67.8 Lymphocytes % 11.4 Monocytes % 16.1 Eosinophils % 3.2 Basophils % 0.9 Nucleated RBC % 0.0 Absolute Neutrophils 2.31 Absolute Lymphocytes 0.39 L Absolute Monocytes 0.55 Absolute Eosinophils 0.11 Absolute Basophils 0.03 VBG Lactate 2.3 H* Sodium 143 Potassium 3.6 Chloride 108 H Carbon Dioxide 26.2 Anion Gap 8.8 BUN 21 H Creatinine 1.2 Est GFR (CKD-EPI 2020) 64.65 Glucose 135 H Calcium 9.5 Magnesium 2.0 Total Bilirubin 0.6 AST 30 ALT 19 Alkaline Phosphatase 91 Troponin I < 50 Total Protein 6.9 Albumin 2.3 L TSH 5.60 H Free T4 1.22 Urine Color Yellow Urine Clarity Clear Urine pH 7.0 Ur Specific [place] 1.020 Urine Protein Trace H Urine Ketones Negative Urine Blood Trace-intact H Urine Nitrite Negative Urine Bilirubin Negative Urine Urobilinogen 1.0 H Ur Leukocyte Esterase Negative Urine RBC 0-2 Urine WBC Negative Ur Epithelial Cells Negative Urine Crystals Negative Urine Bacteria Rare Urine Casts Negative Urine Mucus Negative Urine Other Negative Ur Culture Indicated? C&S Done As Ordered Urine Glucose Negative COVID-19 Source Nasopharynx SARS-CoV-2 (PCR) Negative Influenza Type A (PCR) Negative Influenza Type B (PCR) Negative RSV (PCR) Negative 06/16/23 10:36 WBC RBC Hgb Hct MCV MCH MCHC RDW Plt Count MPV Immature Gran % Neutrophils % Lymphocytes % Monocytes % Eosinophils % Basophils % Nucleated RBC % Absolute Neutrophils Absolute Lymphocytes Absolute Monocytes Absolute Eosinophils Absolute Basophils VBG Lactate 1.9 H Sodium Potassium Chloride Carbon Dioxide Anion Gap BUN Creatinine Est GFR (CKD-EPI 2020) Glucose Calcium Magnesium Total Bilirubin AST ALT Alkaline Phosphatase Troponin I Total Protein Albumin TSH Free T4 Urine Color Urine Clarity Urine pH Ur Specific [place] Urine Protein Urine Ketones Urine Blood Urine Nitrite Urine Bilirubin Urine Urobilinogen Ur Leukocyte Esterase Urine RBC Urine WBC Ur Epithelial Cells Urine Crystals Urine Bacteria Urine Casts Urine Mucus Urine Other Ur Culture Indicated? Urine Glucose COVID-19 Source SARS-CoV-2 (PCR) Influenza Type A (PCR) Influenza Type B (PCR) RSV (PCR) Last Vital Signs Temp 100.3 F H 06/16/23 07:16 Pulse 107 H 06/16/23 07:16 Resp 23 06/16/23 10:10 BP 110/63 06/16/23 07:16 Pulse Ox 92 06/16/23 09:00 Time Spent Time spent with Patient: 55-74 minutes Time was spent: preparing to see the patient(eg.review tests), obtaining and/or reviewing separately otained hiistory, ordering medications,tests, procedures, referring, communicating with other health child care leader, indepentently interpreting results, counseling the patient and care coordination
[2023-06-16 11:05] LABS: Troponin I < 50 ng/L (<or=60)
[2023-06-16] MEDS: Lactated Ringers 500 ML IV (13:23)
[2023-06-16] MEDS: PIPERACILLIN/TAZO 3.375 GM in Normal Saline 50 ML IVPB ×2 (14:24→22:01)
--- NOTE | 2023-06-16 16:23 | NUR.NOTE ---
Pt per Provider was transferred to ICU due to hypotension. Report was given Juanita JOLLY. Nursing Note:
[2023-06-16] MEDS: VANCOMYCIN/WATER (PEG) 1 GM/200 ML BAG IV (17:09)
[2023-06-16] MEDS: Normal Saline Flush 10 ML SYR IVP (22:03)
[2023-06-17] VITALS (81 sets, daily range): BP systolic 75–164; BP diastolic 41–91; PULSE 68–119; RESP 20–50; TEMP 36.6–39.1; O2SAT 78–98
--- NOTE | 2023-06-17 | DI.RAD_ITS ---
Exam(s) XR PORTABLE CHEST AP EXAM: XR PORTABLE CHEST AP CLINICAL HISTORY: worsening hypoxia TECHNIQUE: 2D digital imaging was performed. COMPARISON: CR,XR XR PORTABLE CHEST AP from 12/24/2022 CR XR CHEST 2V PA LATERAL from 06/16/2023 FINDINGS: LUNGS: Significant interval worsening of bilateral pulmonary infiltrates. Findings may represent CHF versus bilateral pneumonia. No pleural abnormality seen. HEART: Normal size. AORTA: Normal diameter. BONES: Unremarkable for age. Soft tissues: Port overlying right chest. IMPRESSION: Increasing bilateral infiltrates which may represent CHF versus bilateral pneumonia. DATA REPOSITORY: RADIATION DOSE DELIVERED:
[2023-06-17] MEDS: Acetaminophen 325 MG TAB PO ×3 (01:17→19:52)
[2023-06-17] MEDS: Zolpidem 5 MG TAB 10 MG PO (01:18)
[2023-06-17] MEDS: PIPERACILLIN/TAZO 3.375 GM in Normal Saline 50 ML IVPB ×3 (05:58→22:46)
[2023-06-17] MEDS: Levothyroxine 100 MCG TAB PO (05:59)
[2023-06-17 06:37] LABS: Lactate 1.1 mmol/L (0.6-1.4)
[2023-06-17 06:44] LABS: HCT 28.7 % (40.0-50.0); HGB 9.7 g/dL (13.5-17.5); MCH 30.3 pg (27.0-33.0); MCHC 33.8 % (32.0-36.0); MCV 90 fL (80-95); MPV 11.4 fL (8.0-11.0); Platelet Count 112 10^3/uL (130-400); RDW 15.2 % (11.8-14.1); RDW-SD 48.9 fL; WBC 3.94 10^3/uL (4.4-10.8)
[2023-06-17 06:55] LABS: Anion Gap 9.4 mmol/L (3-11); BUN 17 mg/dL (7-18); CO2 23.6 mmol/L (21.0-32.0); CREATININE 1.2 mg/dL (0.70-1.30); Calcium 8.7 mg/dL (8.5-10.1); Chloride 110 mmol/L (98-107); Estimated GFR 64.65 (mL/min/1.73m2); Glucose 126 mg/dL (74-106); Magnesium 1.8 mg/dL (1.8-2.4); Potassium 3.2 mmol/L (3.5-5.1); Sodium 143 mmol/L (136-145)
[2023-06-17] MEDS: Enoxaparin 40 MG/0.4 ML SYR SC (08:27)
[2023-06-17] MEDS: Pantoprazole 40 MG TABCR PO (08:28)
[2023-06-17] MEDS: Potassium Chloride Liquid 20 MEQ PKT 40 MEQ PO (08:28)
[2023-06-17] MEDS: VANCOMYCIN/WATER (PEG) 1 GM/200 ML BAG IV (10:59)
--- NOTE | 2023-06-17 12:51 | PCNE_ITS ---
Date of service: 06/17/23 Time of Service: 11:45 History of Present Illness Narrative: Mr. 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; PMHx sig for interstitial lung disease; present sister/HCA Cindy and sister Trista Hospital course: Donald presented to [facility] ED after 2 days of fever, not feeling well, SOB leading to a near syncopal episode and fall in home, EMS called and he agreed to transfer to [facility]; work up in ED consisted for severe sepsis from PNA; admitted for ongoing management, on MS BPs dropped w/MAP below 65, transferred to ICU for pressors, he has been stable in ICU, not requiring pressers and is now considered MS status; in past week had decreased ambition, increased weakness, decreased speech, appetite, SOB, and increased angry attitude; he is feeling a little stronger today compared to yesterday. - he is now requiring 4L O2 to maintain oxygen levels, no fever since early this morning. some issues w/urinary retention, considering placing a swain cath Cindy and Donald provide report; Donald states he is in the hospital today for sepsis, PNA and urinary retention. 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 on Friday next week has labs and potential therapy w/meeting w/Dr. Davidson, potentially scheduling an ECHO and MRI of brain. he would like to consider hearing what Dr. Davidson has to say prior to deciding ongoing oncology care; hiccups, frequent and intermittent, non-distressing - appetite: decreased, worse over past week, has lost 5 lbs in 1 wk, potentially more over past year, 10 lbs since summer months. has not had appetite, nothing sounds appetizing. is comfortable w/receiving appetite stimulant. some dysphagia, ongoing since cancer diagnosis, eating more soft/bite sized pieces, denies issues w/swallowing; some difficulty w/potassium supplements, resolved w/crushing and applesauce; has never been evaluated per CHILD AND YOUTH PROGRAM ASSISTANT per Cindy - Activity: increased weakness, decreased ambition, worse over recent week(s), using walker FT in home Social: sister Cindy lives in [place], she provides him the most care, splitting time between her home and his, caring for her as well. sister Trista lives in [facility] and historically had not been involved in his care. ACP: previously full code, however does want to review this today; no AD completed, previously identified HCA as sister Cindy. Assessment and Plan Assessment and plan (1) Septic shock: Status: Acute Assessment and plan: agreeable to ongoing management of sepsis and PNA continue vanc and Zosyn, IVF has not required pressors, now MS status (2) Pneumonia: Status: Acute Qualifiers: Laterality: unspecified laterality Lung location: unspecified part of lung Pneumonia type: due to unspecified organism Qualified Code(s): J18.9 - Pneumonia, unspecified organism (3) Leukopenia: Status: Acute Qualifiers: Leukopenia type: unspecified Qualified Code(s): D72.819 - Decreased white blood cell count, unspecified (4) At risk for loneliness: Status: Acute Assessment and plan: reviewed discharge to include relocation to living with sister for increased support and socialization (5) Unintentional weight loss: Status: Acute Assessment and plan: 5 lbs in 1 wk started mirtazapine this hospitalization continue to monitor (6) Pressure injury, stage 1: Status: Acute Assessment and plan: HH was following, continue to monitor HH on discharge (7) Difficulty swallowing: Status: Acute Assessment and plan: chronic, no acute changes per family no CHILD AND YOUTH PROGRAM ASSISTANT review eating appropriately throughout visit (8) At risk for falls: Status: Acute Assessment and plan: recommend PT evaluation home w/HH (9) Impaired instrumental activities of daily living: Status: Acute (10) Esophageal cancer: Status: Acute Assessment and plan: f/b Dr Davidson appt next week, would like to wait for labs/imaging and this appt to review ongoing oncology treatment several missed treatments recently d/t health (weakness, thrombocytopenia, etc) Qualifiers: Malignant neoplasm of esophagus location: unspecified location Qualified Code(s): C15.9 - Malignant neoplasm of esophagus, unspecified (11) Secondary malignant neoplasm of both lungs: (12) Secondary malignant neoplasm of brain: (13) Thrombocytopenia: (14) ACP (advance care planning): Status: Acute Assessment and plan: reviewed and completed COLST: DNR/I, trial IVF/abx,he was not sure his preferences on feeding tube today, would like to review with family, okay with appetite stimulant - Donald and Cindy will continue to review POC on discharge, today we reviewed the idea of him being discharged to her home w/HH services, and he was agreeable to this. She lives in [place]; recommend PT consult as above - reviewed current hospitalization and treatment plan, esophageal cancer and treatment plan spent 40 mins w/ACP Review of Systems Narrative: as per HPI PFSH All Active Problems Septic shock (Acute) Pneumonia (Acute) Malignancy (Acute) Sepsis (Acute) Leukopenia (Acute) ACP (advance care planning) (Acute) At risk for loneliness (Acute) Depression (Chronic) Unintentional weight loss (Acute) Pressure injury, stage 1 (Acute) Difficulty swallowing (Acute) At risk for falls (Acute) Need for follow-up by home health service (Acute) Impaired instrumental activities of daily living (Acute) Esophageal cancer (Acute) Medical History Thrombocytopenia History of fall Presence of other vascular implants and grafts Nicotine dependence Pathological fracture Pulmonary fibrosis 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 Exam Narrative Exam Narrative: General: older adult male, cooperative, average body habitus; eating lunch w/no issues at start of visit HEENT: NC in place; R sided forehead w/closed skin tears, no bleeding, scattered bruising; hearing grossly WNL, MMM Resp: tachynpic at 22, non-distressing, lip color WNL, O2 monitor ranging from 88-92%; audible nasal BS, no cough or audible wheeze Skin: scattered bruising, atrophy Neuro: AAOx3 Psych: calm, cooperative, MS WNL, thought content normal; judgment/insight fair Results Last Vital Signs Temp 97.9 F 06/17/23 08:30 Pulse 70 06/17/23 11:01 Resp 23 06/17/23 10:27 BP 92/57 L 06/17/23 11:01 Pulse Ox 93 06/17/23 11:01 Labs 06/17/23 06:32 06/17/23 06:32 Labs: Laboratory Results - last 24 hr 06/16/23 06/17/23 13:44 06:32 WBC 3.94 L RBC 3.20 L Hgb 9.7 L Hct 28.7 L MCV 90 MCH 30.3 MCHC 33.8 RDW 15.2 H Plt Count 112 L MPV 11.4 H VBG Lactate Cancelled 1.1 Sodium 143 Potassium 3.2 L Chloride 110 H Carbon Dioxide 23.6 Anion Gap 9.4 BUN 17 Creatinine 1.2 Est GFR (CKD-EPI 2020) 64.65 Glucose 126 H Calcium 8.7 Magnesium 1.8
--- NOTE | 2023-06-17 13:57 | PDOC.CMIN ---
Date of service: 06/17/23 Time of Service: 13:57 Care Management Initial Assmt Initial Assessment REASON FOR HOSPITALIZATION:: Severe sepsis pneumonia PREVIOUS FUNCTIONAL STATUS/SOCIAL/FAMILY SUPPORTS:: Resides alone in [place], sister Cindy is very supportive and CURRENT FUNCTIONAL STATUS:: Blanco remains in the ICU at this time, sisters at his bedside, he is scheduled to meet with Arline of Palliative Care. ADVANCE DIRECTIVES:: COLST completed with Arline of Palliative Care. Has patient been provided with info about the portal/API?: No Did the patient sign up for the portal?: No CODE STATUS:: Full Code INSURANCE COVERAGE / FINANCIAL ISSUES:: Medicare CURRENT HOME/COMMUNITY SERVICES/EQUIPMENT:: Palliative PRIMARY CARE PHYSICIAN:: Williams Suárez POTENTIAL DISCHARGE NEEDS:: Follow up appointments, PT evaluation, Palliative consult. PATIENT/FAMILY EDUCATION NEEDS:: Review discharge instructions, discuss Ask Me Three. ANTICIPATED BARRIERS TO DISCHARGE:: None identified. TRANSPORTATION:: Via private vehicle with family. PLAN:: Blanco will return home when ready per MD. Palliative consult to inform goals of care; CM continues to follow. PFSH All Active Problems (Updated 06/17/23 @ 16:21 by Moses Garvin MD) Pulmonary edema (Acute) Pneumonia (Acute) Malignancy (Acute) Sepsis (Acute) Leukopenia (Acute) ACP (advance care planning) (Acute) At risk for loneliness (Acute) Depression (Chronic) Unintentional weight loss (Acute) Pressure injury, stage 1 (Acute) Difficulty swallowing (Acute) At risk for falls (Acute) Need for follow-up by home health service (Acute) Impaired instrumental activities of daily living (Acute) Esophageal cancer (Acute) Medical History Thrombocytopenia History of fall Presence of other vascular implants and grafts Nicotine dependence Pathological fracture Pulmonary fibrosis 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
[2023-06-17] MEDS: Lidocaine 2% Jelly 11 ML SYR UR (14:40)
[2023-06-17] MEDS: Lidocaine 2% Jelly 6 ML SYR (14:41)
--- NOTE | 2023-06-17 14:49 | NUR.NOTE ---
ICU Clinical Educator documentation chart audit Nursing Note:
[2023-06-17] MEDS: LORazepam 2 MG/ML VIAL (15:21)
[2023-06-17] MEDS: Normal Saline Flush 10 ML SYR IVP ×3 (15:23→22:45)
--- NOTE | 2023-06-17 15:56 | CHAPLAIN ---
I met with Donald's sister Cindy in the family room while Donald was being washed up. Cindy has been providing care for Donald, and spending nights at his house in [facility], since his esophageal cancer diagnosis last October. She is also caring for her , who has cardiac issues, in their home in [place]. Cindy said she is stressed, and not able to sleep well. At the time of his diagnosis, according to Cnidy, Donald was told he would leave three months without radiation and chemo treatment and up to a year with treatments. He opted for the treatments. Donald has not wanted to pay for a LifeLine, Cindy said. Yesterday Donald fell in the bathroom and was transported here by EMS. Today he met with Arline Frederick NP, from Palliative Care to talk about his code status. Cindy said her and Donald's sister, Trista, lives locally but has not been able to help with Donald. I visited with Donald this afternoon. He was in bed, on oxygen, but pleasant and engaged in a conversation. He asked for some assistance getting drink on the bedside table which has been moved away from the bed. I brought a prayer shawl for Donald. I will continue to visit.
--- NOTE | 2023-06-17 16:18 | PGE_ITS ---
Date of Service Date of service: 06/17/23 Time of Service: 16:18 Assessment and Plan Assessment and plan (1) Septic shock: Status: Ruled-out Assessment and plan: - Patiet meets criteria for septic shock with initial presentation of tachycardia with heart rate greater than 100, leukopenia with a white blood cell count of 3.8, respiratory rate of 26, source of infection likely being a pneumonia -He received a total of 2.5 L she is greater then 30 cc/kg and mean arterial pressures remained below 65 -However, upon transfer to the intensive care unit patient's mean arterial pressure has been greater than 70 -Initially started on linezolid and Zosyn in the emergency department -continue Zosyn, however will discontinue linezolid as patient already has mild thrombocytopenia and will also require anticoagulation during hospitalization -continue vancomycin -Follow-up blood and sputum cultures -Lactic acid initially 2.3, decreased to 1.9 on repeat (2) Pulmonary edema: Status: Acute Assessment and plan: - Patient experienced worsening hypoxic respiratory failure with increasing oxygen requirements from 2 L up to 15 on nonrebreather -Given increase audible crackles bilaterally chest x-ray was ordered which showed worsening bilateral infiltrates, pulmonary edema versus worsening infection -Given amount of fluids patient is given this is likely pulmonary edema -Ordered 20 mg IV Lasix -Continue to monitor patient's oxygen requirements give additional doses of Lasix as needed Qualifiers: Chronicity: acute Qualified Code(s): J81.0 - Acute pulmonary edema (3) Pneumonia: Status: Acute Assessment and plan: -Likely cause of septic shock as noted above -Treat as noted above Qualifiers: Pneumonia type: due to unspecified organism Laterality: unspecified laterality Lung location: unspecified part of lung Qualified Code(s): J18.9 - Pneumonia, unspecified organism (4) Leukopenia: Status: Acute Assessment and plan: -Likely due to combination of chemotherapy infection as noted above -Follow-up a.m. CBC Qualifiers: Leukopenia type: unspecified Qualified Code(s): D72.819 - Decreased white blood cell count, unspecified (5) Esophageal cancer: Status: Acute Assessment and plan: - Known to be metastatic to brain and lung -Patient was due to receive additional dose of chemotherapy today, will be unable to due to hospitalization -Has been seen by palliative care in the outpatient setting patient wishes to remain a full code -Palliative care consult patient today; patient has now decided to be DNR/DNI with trial of IV antibiotics and IV fluids COLST has been updated Qualifiers: Malignant neoplasm of esophagus location: unspecified location Qualified Code(s): C15.9 - Malignant neoplasm of esophagus, unspecified (6) Unintentional weight loss: Status: Acute Assessment and plan: - Due to esophageal cancer and chemotherapy as noted above Subjective Subjective Interval history since last seen: Patient sitting up in bed, states that he feels a little short of breath and anxious. Otherwise he denies any pain. Exam Narrative Exam Narrative: Frail, fatigued appearing older gentleman laying in bed in mildly anxious appearing and in mild respiratory distress,4 L nasal cannula in place, AOx4, heart RRR, lungs with more prominent crackles in bilateral lower lobes, abdomen soft, nontender, nondistended Objective Last Vital Signs Temp 97.9 F 06/17/23 08:30 Pulse 70 06/17/23 11:01 Resp 23 06/17/23 10:27 BP 92/57 L 06/17/23 11:01 Pulse Ox 87 L 06/17/23 15:20 Laboratory Results - last 24 hr 06/16/23 06/17/23 13:44 06:32 WBC 3.94 L RBC 3.20 L Hgb 9.7 L Hct 28.7 L MCV 90 MCH 30.3 MCHC 33.8 RDW 15.2 H Plt Count 112 L MPV 11.4 H VBG Lactate Cancelled 1.1 Sodium 143 Potassium 3.2 L Chloride 110 H Carbon Dioxide 23.6 Anion Gap 9.4 BUN 17 Creatinine 1.2 Est GFR (CKD-EPI 2020) 64.65 Glucose 126 H Calcium 8.7 Magnesium 1.8 Time Spent with Patient Time Spent with Patient: >50 minutes Time was spent: preparing to see the patient(eg.review tests), obtaining and/or reviewing separately otained hiistory, ordering medications,tests, procedures, referring, communicating with other health animal care specialist, indepentently interpreting results, counseling the patient and care coordination
[2023-06-17] MEDS: Furosemide 20 MG/2 ML VIAL IVP (16:26)
[2023-06-17] MEDS: MORPHine 2 MG/ML SYR IVP ×2 (22:44)
[2023-06-18] VITALS (74 sets, daily range): BP systolic 81–141; BP diastolic 49–86; PULSE 59–125; RESP 17–48; TEMP 31–39.6; O2SAT 70–99
--- NOTE | 2023-06-18 | DI.CT_ITS ---
Exam(s) CT CHEST PE CTA EXAM: CT CHEST PE CTA CLINICAL HISTORY: worsening SOB and hypoxia. TECHNIQUE: Imaging Protocol: CT angiography of the chest was performed using pulmonary embolus azul col. Multi planar reconstructions were performed. CONTRAST MATERIAL: Intravenous: Omnipaque 350 Contrast volume: 100 cc COMPARISON: CT CT CHEST/ABD/PEL W from 05/27/2023 CR XR PORTABLE CHEST AP from 06/17/2023 FINDINGS: CHEST: PULMONARY ARTERIES: Less than optimal bolus injection. There are no central intraluminal filling def ects to suggest acute central pulmonary emboli.Opacification of the subsegmental pulmonary arteries i s less than optimal for adequate evaluation LUNGS: There are extensive bilateral symmetrical ground-glass and confluent infiltrates. Also small bilateral pleural effusions.. MEDIASTINUM: There is no hilar nor mediastinal adenopathy. CARDIAC: Mild cardiomegaly. No pericardial effusion.Caliber of the ascending thoracic aorta slightly prominent, measuring 3.9 cm.. There is no evidence of aortic dissection. There is no significant s hift of the interventricular septum. PARTIALLY VISUALIZED UPPERMOST ABDOMEN: Liver appears somewhat cirrhotic. Splenomegaly noted. No as cites evident in the upper abdomen. OSSEOUS: No significant osseous lesions.No fractures.. IMPRESSION: 1. Suboptimal bolus injection. No central pulmonary emboli nor emboli in 2nd order vessels. More se gmental pulmonary arterial tree is difficult to evaluate. 2. There are extensive symmetrical bilateral infiltrates and small equal size bilateral pleural effus ions. Cardiomegaly. No pericardial effusion. Findings are most probably related to pulmonary edema or infection. The symmetry points more towards CHF, but correlation with clinical findings recommen ded. 3. Distal tip of Port-A-Cath is in the right atrium. RADIATION DOSE DELIVERED: Total DLP DATA REPOSITORY: All CT scans at this facility are submitted to the National Radiology Data Registry (NRDR) Dose Index Registry (DIR) with the [employer] (ACR). RADIATION OPTIMIZATION: All CT scans at this facility use at least one of these dose optimization te chniques: automated exposure control; mA and/or kV adjustment per patient size (includes targeted exa ms where dose is matched to clinical indication); or iterative reconstruction.
[2023-06-18] MEDS: VANCOMYCIN/WATER (PEG) 1 GM/200 ML BAG IV (04:17)
[2023-06-18] MEDS: Normal Saline Flush 10 ML SYR IVP ×4 (05:30→22:15)
[2023-06-18] MEDS: Levothyroxine 100 MCG TAB PO (05:49)
[2023-06-18] MEDS: PIPERACILLIN/TAZO 3.375 GM in Normal Saline 50 ML IVPB (05:50)
[2023-06-18 07:31] LABS: HCT 30.3 % (40.0-50.0); MCH 29.8 pg (27.0-33.0); MCV 90 fL (80-95); MPV 11.8 fL (8.0-11.0); Platelet Count 121 10^3/uL (130-400); RBC 3.36 10^6/uL (4.36-5.78); RDW 15.2 % (11.8-14.1); RDW-SD 49.1 fL; WBC 4.88 10^3/uL (4.4-10.8)
[2023-06-18 07:40] LABS: Anion Gap 8.1 mmol/L (3-11); BUN 15 mg/dL (7-18); CO2 26.9 mmol/L (21.0-32.0); CREATININE 1.1 mg/dL (0.70-1.30); Calcium 8.7 mg/dL (8.5-10.1); Chloride 109 mmol/L (98-107); Estimated GFR 71.77 (mL/min/1.73m2); Glucose 82 mg/dL (74-106); Sodium 144 mmol/L (136-145)
[2023-06-18] MEDS: LORazepam 2 MG/ML VIAL ×2 (08:12→12:08)
[2023-06-18] MEDS: Furosemide 20 MG/2 ML VIAL (08:17)
[2023-06-18] MEDS: Furosemide 20 MG/2 ML VIAL IVP (08:17)
[2023-06-18] MEDS: Enoxaparin 40 MG/0.4 ML SYR SC (08:18)
[2023-06-18] MEDS: Pantoprazole 40 MG TABCR PO (08:18)
[2023-06-18] MEDS: Potassium Chloride Liquid 20 MEQ PKT 40 MEQ PO ×2 (09:20→10:26)
[2023-06-18] MEDS: Omnipaque 350 MG/ML 100 ML BTL IJ (10:20)
[2023-06-18] MEDS: Normal Saline - Diluent 50 ML VIAL IJ (10:21)
[2023-06-18 10:27] LABS: BE 1 mmol/L (-2-3); HCO3 24 mmol/L (22-26); pCO2 31 mmHg (35-45); pO2 45 mmHg (80-105); sO2 86 % (95-98); tCO2 21 mmol/L (23-27)
[2023-06-18 10:29] LABS: FIO2L 15 L; Site Right Radial
[2023-06-18] MEDS: Acetaminophen 325 MG TAB PO (11:40)
[2023-06-18] MEDS: LINEZOLID 600 MG/300 ML BAG 300 MG IVPB (11:52)
[2023-06-18 11:54] LABS: NT-proBNP 190 pg/mL (<300)
--- NOTE | 2023-06-18 14:09 | CHAPLAIN ---
Donald was resting when I visited, but I spoke with his two sisters. Cindy has been supporting Donald, and staying over night at his house. She lives in [place] and Donald lives in [facility] so she's been driving back and forth a lot and is getting tired, she told me yesterday. Donald completed a COLST form with Arline Frederick NP from Palliative Care yesterday, and stated that he did not want CPR done on his if his heart stopped, and would not want to be intubated, he sisters said. He did not make decision about a feeding tube. Donald has more tests this morning and a cardiac ultrasound so is worn out now. Cindy was going to pharmacy picking tech Donald's cat and bring it to her house. She will continue to visit Donald.
--- NOTE | 2023-06-18 14:22 | PGE_ITS ---
Date of Service Date of service: 06/18/23 Time of Service: 14:22 Assessment and Plan Assessment and plan (1) Septic shock: Status: Ruled-out Assessment and plan: - Patiet meets criteria for septic shock with initial presentation of tachycardia with heart rate greater than 100, leukopenia with a white blood cell count of 3.8, respiratory rate of 26, source of infection likely being a pneumonia -He received a total of 2.5 L she is greater then 30 cc/kg and mean arterial pressures remained below 65 -However, upon transfer to the intensive care unit patient's mean arterial pressure has been greater than 70 -Initially started on linezolid and Zosyn in the emergency department -continue Zosyn, however will discontinue linezolid as patient already has mild thrombocytopenia and will also require anticoagulation during hospitalization -continue vancomycin -Follow-up blood and sputum cultures -Lactic acid initially 2.3, decreased to 1.9 on repeat -Patient became febrile early in the morning on 1115 despite being on vancomycin and Zosyn -Blood cultures have been repeated including 1 set from his port, and his antibiotics have been changed to Merrem and linezolid -We will follow-up repeat cultures (2) Pulmonary edema: Status: Acute Assessment and plan: - Patient experienced worsening hypoxic respiratory failure with increasing oxygen requirements from 2 L up to 15 on nonrebreather -Given increase audible crackles bilaterally chest x-ray was ordered which showed worsening bilateral infiltrates, pulmonary edema versus worsening infection -Given amount of fluids patient is given this is likely pulmonary edema -Ordered 20 mg IV Lasix p.m. on 06/17/2023 with good urine output and improvement in oxygen requirements -However, patient again became significantly hypoxic on the morning of 06/18 and again responded to 20 mg of IV Lasix with roughly 1.5 L of urine output in the subsequent 2 hours -CTA was ordered in order to rule out pulmonary embolus of which none were seen in the main branches -However, what was noted was bilateral symmetrical pulmonary infiltrates and pleural effusions that while could be infectious symmetrical nature of it appeared to be more likely to congestive heart failure -proBNP has been ordered as well as an echocardiogram, and an additional 20 mg of IV Lasix has also been given Qualifiers: Chronicity: acute Qualified Code(s): J81.0 - Acute pulmonary edema (3) Pneumonia: Status: Acute Assessment and plan: -Likely cause of septic shock as noted above -Treat as noted above Qualifiers: Pneumonia type: due to unspecified organism Laterality: unspecified laterality Lung location: unspecified part of lung Qualified Code(s): J18.9 - Pneumonia, unspecified organism (4) Leukopenia: Status: Acute Assessment and plan: -Likely due to combination of chemotherapy infection as noted above -Follow-up a.m. CBC Qualifiers: Leukopenia type: unspecified Qualified Code(s): D72.819 - Decreased white blood cell count, unspecified (5) Esophageal cancer: Status: Acute Assessment and plan: - Known to be metastatic to brain and lung -Patient was due to receive additional dose of chemotherapy today, will be unab le to due to hospitalization -Has been seen by palliative care in the outpatient setting patient wishes to remain a full code -Palliative care consult patient 06/17; patient has now decided to be DNR/DNI with trial of IV antibiotics and IV fluids COLST has been updated Qualifiers: Malignant neoplasm of esophagus location: unspecified location Qualified Code(s): C15.9 - Malignant neoplasm of esophagus, unspecified (6) Unintentional weight loss: Status: Acute Assessment and plan: - Due to esophageal cancer and chemotherapy as noted above Subjective Subjective Interval history since last seen: Patient laying in bed, saying that he feels a little anxious and short of breath but denies any lightheadedness, dizziness, chest pain. Exam Narrative Exam Narrative: Frail, fatigued appearing older gentleman laying in bed in mildly anxious appearing and in mild respiratory distress, 15 L oxy mask in place, AOx4, heart RRR, lungs with more prominent crackles in bilateral lower lobes, abdomen soft, nontender, nondistended Objective Last Vital Signs Temp 100.8 F H 06/18/23 13:08 Pulse 108 H 06/18/23 13:01 Resp 27 H 06/18/23 13:01 BP 99/57 L 06/18/23 13:01 Pulse Ox 99 06/18/23 13:01 Laboratory Results - last 24 hr 06/18/23 06/18/23 06/18/23 05:35 10:22 11:00 WBC 4.88 RBC 3.36 L Hgb 10.0 L Hct 30.3 L MCV 90 MCH 29.8 MCHC 33.0 RDW 15.2 H Plt Count 121 L MPV 11.8 H ABG Sample Site Right Radial ABG pH 7.50 H ABG pCO2 31 L ABG pO2 45 L ABG HCO3 24 ABG Total CO2 21 L ABG O2 Saturation 86 L ABG Base Excess 1 Oxygen Liter Flow 15 Sodium 144 Potassium 3.0 L Chloride 109 H Carbon Dioxide 26.9 Anion Gap 8.1 BUN 15 Creatinine 1.1 Est GFR (CKD-EPI 2020) 71.77 Glucose 82 Calcium 8.7 NT-Pro-B Natriuret Pep 190 Time Spent with Patient Time Spent with Patient: >50 minutes Time was spent: preparing to see the patient(eg.review tests), obtaining and/or reviewing separately otained hiistory, ordering medications,tests, procedures, referring, communicating with other health career services representative, indepentently interpreting results, counseling the patient and care coordination
[2023-06-18] MEDS: MEROPENEM 1 GM in Normal Saline 100 ML IVPB ×2 (14:24→22:12)
--- NOTE | 2023-06-18 17:01 | PT.INNT ---
PT Notes Visit Reasons: Severe sepsis pneumonia Patient was seen late in the afternoon today and politely refused PT evaluation as he wanted to rest. Also declined talking with a family member as he wanted to relax and sleep if he could. Nurses Elizabeth and Christie were aware of patient's decision. Appears that physical therapy is not the priority of patient and family at this time but will continue to offer services tomorrow to see willingness to participate.
--- NOTE | 2023-06-18 17:27 | PDOC.CMPRO ---
Date of service: 06/18/23 Time of Service: 17:27 Care Management Progress Note Progress Note Text Progress Note Text: S/O: Blanco was lying in bed when CM met with him; RIK Carlos reviewed declining medical status, and outreach to Blanco's sister. Blanco was on 15L O2 and CM did not encourage him to verbally engage so he could sustain saturation. CM continues to follow. A: 73 year old male admitted 06/16/23 to [facility] for severe sepsis pneumonia P: Blanco remains critically ill at this time; CM continues to follow.
[2023-06-18] MEDS: Zolpidem 10 MG TAB PO (22:14)
[2023-06-19] VITALS (22 sets, daily range): BP systolic 92–110; BP diastolic 55–79; PULSE 73–87; RESP 16–40; TEMP 31–41; O2SAT 87–96
[2023-06-19] MEDS: LINEZOLID 600 MG/300 ML BAG 300 MG IVPB ×2 (00:17→12:38)
[2023-06-19] MEDS: LORazepam 2 MG/ML VIAL 0.5 MG IVP ×3 (00:17→20:31)
[2023-06-19] MEDS: Levothyroxine 100 MCG TAB PO (05:43)
[2023-06-19] MEDS: Normal Saline Flush 10 ML SYR IVP (05:43)
[2023-06-19] MEDS: MEROPENEM 1 GM in Normal Saline 100 ML IVPB (06:25)
[2023-06-19 06:57] LABS: HCT 29.4 % (40.0-50.0); MCH 30.4 pg (27.0-33.0); MCV 89 fL (80-95); MPV 11.9 fL (8.0-11.0); Platelet Count 130 10^3/uL (130-400); RBC 3.29 10^6/uL (4.36-5.78); RDW 15.1 % (11.8-14.1); RDW-SD 48.8 fL; WBC 5.97 10^3/uL (4.4-10.8)
[2023-06-19 07:22] LABS: ALT 16 U/L (16-63); AST 30 U/L (15-37); Albumin 1.8 g/dL (3.4-5.0); Alkaline Phosphatase 89 U/L (46-116); Anion Gap 7.1 mmol/L (3-11); BUN 17 mg/dL (7-18); Bilirubin, Total 0.7 mg/dL (0.2-1.0); CO2 26.9 mmol/L (21.0-32.0); CREATININE 1.1 mg/dL (0.70-1.30); Calcium 8.8 mg/dL (8.5-10.1); Chloride 107 mmol/L (98-107); Estimated GFR 71.77 (mL/min/1.73m2); Glucose 96 mg/dL (74-106); Sodium 141 mmol/L (136-145); Total Protein 6.2 g/dL (6.4-8.2)
[2023-06-19 07:35] LABS: Potassium 2.7 mmol/L (3.5-5.1)
[2023-06-19] MEDS: Enoxaparin 40 MG/0.4 ML SYR SC (09:29)
[2023-06-19] MEDS: Potassium Chloride 20 MEQ TABCR 40 MEQ PO ×2 (09:29→12:21)
[2023-06-19] MEDS: Pantoprazole 40 MG TABCR PO (09:29)
--- NOTE | 2023-06-19 10:39 | CMPROGNOTE_ITS ---
Date of service: 06/19/23 Time of Service: 10:39 Care Management Progress Note Progress Note Text Progress Note Text: S/O: Per MD, Blanco has shown improvement over the last twenty four hours; anticipate he may even transition to M/S status today. CM continues to follow. A: 73 year old male admitted 06/16/23 to [facility] for severe sepsis pneumonia P: Blanco remains acute at this time; CM continues to follow.
--- NOTE | 2023-06-19 10:49 | PGE_ITS ---
Date of Service Date of service: 06/19/23 Time of Service: 10:50 Assessment and Plan Assessment and plan (1) Comfort measures only status: Status: Acute Assessment and plan: - After prolonged and repeated discussions with palliative care, patient and his family ultimately decided to transition to comfort measures only, will stop checking vital signs and labs -We will continue only comfort directed medications -As needed liquid morphine for shortness of breath and IV Ativan for anxiety -We will monitor the patient over the next 24 to 48 hours to determine if he is a candidate for home hospice (2) Septic shock: Status: Ruled-out (3) Pulmonary edema: Status: Acute Qualifiers: Chronicity: acute Qualified Code(s): J81.0 - Acute pulmonary edema (4) Pneumonia: Status: Acute Qualifiers: Laterality: unspecified laterality Lung location: unspecified part of lung Pneumonia type: due to unspecified organism Qualified Code(s): J18.9 - Pneumonia, unspecified organism (5) Leukopenia: Status: Acute Qualifiers: Leukopenia type: unspecified Qualified Code(s): D72.819 - Decreased white blood cell count, unspecified (6) Esophageal cancer: Status: Acute Qualifiers: Malignant neoplasm of esophagus location: unspecified location Qualified Code(s): C15.9 - Malignant neoplasm of esophagus, unspecified (7) Unintentional weight loss: Status: Acute Subjective Subjective Interval history since last seen: Patient laying in bed, stating that he feels much better today as compared to previous days and has no complaints or concerns at this time. Exam Narrative Exam Narrative: Frail, fatigued appearing older gentleman laying in bed in mildly anxious appearing and in mild respiratory distress, 15 L oxy mask in place, AOx4, heart RRR, lungs with more prominent crackles in bilateral lower lobes, abdomen soft, nontender, nondistended Objective Last Vital Signs Temp 97.5 F L 06/19/23 03:45 Pulse 76 06/19/23 05:01 Resp 28 H 06/19/23 05:01 BP 106/64 06/19/23 05:01 Pulse Ox 92 06/19/23 09:11 Laboratory Results - last 24 hr 06/18/23 06/19/23 11:00 06:20 WBC 5.97 RBC 3.29 L Hgb 10.0 L Hct 29.4 L MCV 89 MCH 30.4 MCHC 34.0 RDW 15.1 H Plt Count 130 MPV 11.9 H Sodium 141 Potassium 2.7 L* Chloride 107 Carbon Dioxide 26.9 Anion Gap 7.1 BUN 17 Creatinine 1.1 Est GFR (CKD-EPI 2020) 71.77 Glucose 96 Calcium 8.8 Total Bilirubin 0.7 AST 30 ALT 16 Alkaline Phosphatase 89 NT-Pro-B Natriuret Pep 190 Total Protein 6.2 L Albumin 1.8 L Time Spent with Patient Time Spent with Patient: >50 minutes Time was spent: preparing to see the patient(eg.review tests), obtaining and/or reviewing separately otained hiistory, referring, communicating with other health acute care assistant, indepentently interpreting results, counseling the patient and care coordination
--- NOTE | 2023-06-19 11:19 | PHA.REVIEW2 ---
Pharmacy Admission Review Admission Clinical Review Admission Pharmacy Review: Pulmonary edema (Acute) Pneumonia (Acute) Malignancy (Acute) Sepsis (Acute) Leukopenia (Acute) ACP (advance care planning) (Acute) At risk for loneliness (Acute) Unintentional weight loss (Acute) Pressure injury, stage 1 (Acute) Difficulty swallowing (Acute) At risk for falls (Acute) Impaired instrumental activities of daily living (Acute) Esophageal cancer (Acute) No Known Allergies Allergy (Unverified 06/16/23 20:05) Resuscitation Status DNR/DNI Height 5 ft 5 in Weight 65.3 kg Pharmacy Admission Review Renal Dosing Renal Dosing: BUN 17 mg/dL (7-18) 06/19/23 06:20 Creatinine 1.1 mg/dL (0.70-1.30) 06/19/23 06:20 Medications needing adjustments: Reviewed (No medication adjustments needed, CrCl = 56 mL/min) Anticoagulation Anticoagulation: Hgb 10.0 g/dL (13.5-17.5) L 06/19/23 06:20 Hct 29.4 % (40.0-50.0) L 06/19/23 06:20 Plt Count 130 10^3/uL (130-400) 06/19/23 06:20 Creatinine 1.1 mg/dL (0.70-1.30) 06/19/23 06:20 DVT Prophylaxis: Reviewed Medications: Enoxaparin (40mg q24h) Therapeutic Anticoagulation: N/A Opiate Usage Evaluate Pain Scale/Pains Meds: Reviewed (Morphine 2mg IVP Q2H PRN) Scheduled Bowel Reg ordered if on Opiates?: No (PRN Miralax and Docusate) Relevant Labs Relevant Labs: Sodium 141 mmol/L (136-145) 06/19/23 06:20 Potassium 2.7 mmol/L (3.5-5.1) L* 06/19/23 06:20 Chloride 107 mmol/L (98-107) 06/19/23 06:20 Magnesium 1.8 mg/dL (1.8-2.4) 06/17/23 06:32 Electrolytes, C-Reactive P, ESR: Reviewed (K 2.7 mmol/L - consider potassium supplement?) DM Control DM Control: N/A (No diagnosis) Cardiac Review Cardiac Review: Troponin I < 50 ng/L (<or=60) 06/16/23 10:36 NT-Pro-B Natriuret Pep 190 pg/mL (<300) 06/18/23 11:00 BP, HR, EF%: Reviewed (BP 106/64, HR 76 bpm) QTc Review QTc: Reviewed (QTc was elevated on 06/16 at 0.43, repeat EKGs have been normal, most recent 06/19 0.36) IV to PO Switch IV Medications: Reviewed (Meropenem and Linezolid for septic shock / pneumonia still waiting on cultures, Morphine PRN, Lorazepam PRN) Home Meds Home Med List reviewed: Reviewed Relevent Home Meds Not ordered & why?: Patient takes fluoxetine and mirtazapine at home, currently on hold due to interaction with linezolid (serotonin syndrome). If patient is discharged anytime soon will need to be instructed to hold meds until 24 hours after last Linezolid dose. Only other med on home list that is not currently ordered is potassium supplement. Potassium was low today at 2.7, consider putting in order? Current Meds Current Medication Order Review: Reviewed Pharmacy Antibiotic Review Pharmacy Antibiotic Activity: Abx regimen adjustment (Was switched from vanco and Zosyn to Merrem and linezolid due to continued fever. Blood cultures are pending. Plt count 130, continue to monitor while on Linezolid.)
--- NOTE | 2023-06-19 13:21 | W.PALPGNOTE ---
Date of service: 06/19/23 Time of Service: 13:21 Assessment and Plan Assessment and plan (1) Septic shock: Status: Ruled-out Assessment and plan: Respiratory source. 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 (2) Pneumonia: Status: Acute Qualifiers: Pneumonia type: due to unspecified organism Laterality: unspecified laterality Lung location: unspecified part of lung Qualified Code(s): J18.9 - Pneumonia, unspecified organism (3) Leukopenia: Status: Acute Qualifiers: Leukopenia type: unspecified Qualified Code(s): D72.819 - Decreased white blood cell count, unspecified (4) Unintentional weight loss: Status: Acute Assessment and plan: He is down about 14# over the last 6 months. (5) Pressure injury, stage 1: Status: Acute Assessment and plan: Continue to monitor. (6) Difficulty swallowing: Status: Acute Assessment and plan: chronic, no acute changes He is eating small amounts, continue to offer meals. (7) At risk for falls: Status: Acute Assessment and plan: Has had falls at home. Appears weaker. 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 He will transition to RETAIL SALES PROFESSIONAL today. Consider discharge home on hospice vs staying here through the end of his life. Will schedule MS solution for SOB and pain. Will order other comfort medications for PRN use. Consider trial on nasal cannula (off high flow) once he is taking morphine routinely to see if he can tolerate it. Palliative to f/u tomorrow. Subjective Subjective Interval history since last seen: Donald is followed by Arline Frederick NP for Palliative care. 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 He is currently admitted to [facility] for severe sepsis related to PNA. He was seen by Arline Frederick earlier this week for Palliative consultation. They discussed his CODE status and updated COLST form to reflect that he is a DNR/DNI. A follow up Palliative visit was requested to review goals of care. I met with Donald and his sisters, Cindy and Trista. Donald slept through most of the visit but awakened easily to verbal stimuli. Reviewed his diagnosis and hospital course thus far. He is very weak and SOB. He is on high flow O2. He does not like wearing the high flow cannula. He was able to stand to transfer from the ICU bed to Med-Surg bed but he was very SOB and took time to recover. He reports dizziness and lightheadedness upon standing. He is eating small amounts. He has difficulty swallowing at times. He was having difficulty sleeping but slept better last night with his ambien. He has hiccups all of the time, lorazepam is helping. Cindy reports that oncology did not give him his last treatment due to weakness. He has also had chemo held in the past for pressure ulcers. Discussed goals. He does not want to go to SNF ever. His sister is willing to take him home to take care of him. He cannot go home alone. Discussed the option of going home with hospice support. He states, I think it sounds good. Discussed transition to RETAIL SALES PROFESSIONAL while here at [facility]. He will transition to RETAIL SALES PROFESSIONAL now and we will monitor, consider discharge home on hospice versus remaining here through the end of his life. Exam Narrative Exam Narrative: General: very pleasant, elderly man, laying in the hospital bed. He slept through most of the visit but awakened easily to verbal and tactile stimuli. He has intermittent hiccups. HEENT: normocephalic, atraumatic, EOMI, mm dry. Neck: supple Respiratory: wearing high flow O2, respirations appear unlabored at rest. Objective Last Vital Signs Temp 36.4 C L 06/19/23 03:45 Pulse 76 06/19/23 05:01 Resp 28 H 06/19/23 05:01 BP 106/64 06/19/23 05:01 Pulse Ox 92 06/19/23 09:11 Laboratory Results - last 24 hr 06/19/23 06:20 WBC 5.97 RBC 3.29 L Hgb 10.0 L Hct 29.4 L MCV 89 MCH 30.4 MCHC 34.0 RDW 15.1 H Plt Count 130 MPV 11.9 H Sodium 141 Potassium 2.7 L* Chloride 107 Carbon Dioxide 26.9 Anion Gap 7.1 BUN 17 Creatinine 1.1 Est GFR (CKD-EPI 2020) 71.77 Glucose 96 Calcium 8.8 Total Bilirubin 0.7 AST 30 ALT 16 Alkaline Phosphatase 89 Total Protein 6.2 L Albumin 1.8 L
--- NOTE | 2023-06-19 13:28 | IN_ITS ---
PT Notes Visit Reasons: Severe sepsis pneumonia Physical Therapy Inpatient Initial Evaluation Date: 06/19/2023 Referring Doctor: Moses Garvin MD PT Orders: PT CONSULT: Eval/Treat Precautions: Fall. Standard. Activity as tolerated. Patient Profile/Admitting Diagnosis: Blanco is a 73-year-old male with medical history significant for esophageal cancer with lung and brain metastases admitted for management of septic shock, pulmonary edema, PNA, leukocytosis, and untintentional weight loss. PMHX: All Active Problems (Updated 06/16/23 @ 16:19 by Moses Garvin MD) Septic shock (Acute) Pneumonia (Acute) Malignancy (Acute) Sepsis (Acute) Leukopenia (Acute) ACP (advance care planning) (Acute) At risk for loneliness (Acute) Depression (Chronic) Unintentional weight loss (Acute) Pressure injury, stage 1 (Acute) Difficulty swallowing (Acute) At risk for falls (Acute) Need for follow-up by home health service (Acute) Impaired instrumental activities of daily living (Acute) Esophageal cancer (Acute) Medical History (Updated 06/16/23 @ 16:19 by Moses Garvin MD) Errol Min MD Thrombocytopenia History of fall Presence of other vascular implants and grafts Nicotine dependence Pathological fracture Pulmonary fibrosis 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 Independent with all mobility ADL performance using front-wheeled walker. Equipment Owned/DME: FWW Subjective: Patient was agreeable with transferring from bed<>wheelchair from ICU to his new room in med surg. Per sister, patient has functionally declined since his d iagnosis of cancer last October of this year. Sister Nancy has been coming in 3-4x a week to provide needed assistance for patient. 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 She states that other than the fall he had last Friday, patient has not had any in the past 12 months. Objective: General Observation: Supine in bed. All set up by Nurse Karla and RT to transfer to transport chair. On HF oxygen supplementation via NC. Mental Status: Drowsy but oriented as to person, place, time, and purpose. Ability to focus impaired due to fatigue and generalized weakness. Pain: Generalized pain and fatigue Vital Signs: WNL during session before and after transfer ROM: Right Upper Extremity: Shoulder Flexion lacks the last 25% of AROM. Shoulder abduction acks the last 25% of AROM. Elbow flexion WFL. Wrist flexion WFL. Functional opening and closing of hand WFL. Left Upper Extremity: Shoulder Flexion lacks the last 25% of AROM. Shoulder abduction acks the last 25% of AROM. Elbow flexion WFL. Wrist flexion WFL. Functional opening and closing of hand WFL. Right Lower Extremity: Hip flexion lacks the last 25% of AROM. Hip abduction lacks the last 25% of AROM. Knee flexion 30degrees to 90 degrees. Knee extension -30 degrees. Ankle dorsiflexion to neutral only. Ankle plantarflexion WFL. Left Lower Extremity: Hip flexion lacks the last 25% of AROM. Hip abduction lacks the last 25% of AROM. Knee flexion 30degrees to 90 degrees. Knee extension -30 degrees. Ankle dorsiflexion to neutral only. Ankle plantarflexion WFL. Strength: Right Upper Extremity: Shoulder flexors 3-/5. Shoulder abductors 3-/5. Elbow flexors 4-/5. Elbow extensors 4-/5. Electromechanical Equipment Assembler strong. Left Upper Extremity: Shoulder flexors 3-/5. Shoulder abductors 3-/5. Elbow flexors 4-/5. Elbow extensors 4-/5. Electromechanical Equipment Assembler strong. Right Lower Extremity: Hip flexors 3-/5. Hip abductors 3-/5. Knee flexors 3-/5. Knee extensors 3-/5. Ankle dorsiflexors 3-/5. Ankle plantarflexors 4-/5. Left Lower Extremity: Hip flexors 3-/5. Hip abductors 3-/5. Knee flexors 3-/5. Knee extensors 3-/5. Ankle dorsiflexors 3-/5. Ankle plantarflexors 4-/5. Bed Mobility/Transfers: Moderate verbal cueing provided for hand placement, movement sequence, pacing to minimize SOB, and AD management Rolling minimal assist Supine to sit minimal assist Sit to supine minimal assist of 2 Sit to stand minimal assist Stand to sit minimal assist Bed to reclining chair minimal assist Reclining chair to bed minimal assist Gait: facilitated safe and correct performance of in-rrom ambulation of up to 6 steps while suing FWW while on HF oxygen supplementation requring minimal assist with moderate cues given for hand placement, movement sequence, pacing to minimize SOB, and AD management. Balance: Static Sitting: Good Dynamic Sitting: Fair Static Standing: Fair Dynamic Standing: Poor Special Tests: Mobility Limitations Standardized Measure [facility] AM-PAC 6 clicks Basic Mobility Inpatient Short Form: Raw Score: 14 CMS Score: 61% deficit Informed Consent/Education: Patient was instructed in purpose of PT consult and plan of care. Agreeable to proceed with established PT POC to achieve personal goals. ASSESSMENT: Patient is very limited at this time due to ongoing medical co- morbidities/admitting diagnoses. Currently on HF oxygen supplementation and will need ample rest in between PT activities to minimize fatigue. patient and sister do not want SNF placement. Sister has made arrangement with another lady who may be able to help her care for patient at home whne medically cleared. PT to proceed with mobility, strength, and balance progression as gradually, as tolerated. Patient presents with clinical signs and symptoms consistent with current/admitting diagnoses that have resulted to mobility limitations, gait instability, generalized weakness, and overall ADL decline as demonstrated by the following impairment level findings: 1. Decreased strength to B UE/LE major muscle groups 2. Impaired sitting/standing balance 3. Impaired activity tolerance 4. Limitation of joint range of motion in as above 5. Shortness of breath 6. Easy fatigueability Impairments are contributing to the following functional limitations: 1. Decline in bed mobility skills 2. Decline in transfer skills 3. Difficulty with ambulation without assistive device and physical assistance 4. Increased completion time for mobility ADL performance 5. Increased risk for falls 6. Difficulty with managing steps alone safely Patient is assessed as a [id number] moderate complexity based on the following: History: 73-year-old male with past medical history as indicated above Examination: Demonstrable impairment in strength, balance, and mobility level with underlying impairments and functional limitations as exhibited above as well as deficit score of 61% utilizing the [facility] Mobility Inpatient Short Form Presentation: Evolving Decision Makin moderate complexity Goals: Goals X1 week 1. Supine-Sit independent 2. Sit-Supine independent 3. Sit-Stand independent 4. Stand-Sit independent with 4WW 5. Bed-Chair independent with 4WW 6. Chair-Bed independent with 4WW 7. Independent gait on level surface with use of 4WW for at least 150 feet without report of pain nor dyspnea 8. Independent stair negotiation while holding onto B rails for at least 3 steps without report of pain nor dyspnea 9. Independent with home exercise program 10. Good static and dynamic standing balance/tolerance Plan of Care/Treatment Plan: 1-2x/day, 7 days/week x 1 week. Plan of care has been reviewed with the BIG DATA ADMIN providing the service under Physical Therapy direction. Initiate Physical Therapy intervention for pain management as needed, strengthening, bed mobility, transfers, gait, stairs, balance training, and use of assistive device. DISCHARGE RECOMMENDATIONS: [] Home with no services [] [] Home with services [specify] [] Home with outpatient PT [] [] SNF for continued rehabilitation [] [] Retirement Care [] [] SNF versus LTC based on ability to participate and progress [] [X] PT vs SNF based on progress towards goals TREATMENT CODE/TIME: 59538 x 20 minutes for 1 unit, 14798 x 12 minutes for 1 unit beginning at 13:28 PM. Thank you for the opportunity to participate in the care of this patient. Samara Brumfield PT, DPT, CLT [facility] [place], [place]
--- NOTE | 2023-06-19 17:34 | CHAPLAIN ---
Donald was transferred out of the ICU today. He had a follow up appointment with Brigitte Blake NP, from Palliative Care today. During his last PC conversation a couple of days ago, Donald changed his COLST form code status to DNI/NDR. Today he and his sisters, Cindy and Trista spoke with Brigitte about end of life are. Donald would not want to go to a SNF. They discussed going home on hospice, with Cinyd continuing to be his primary caregiver, and also talked about remaining here. They are going to wait and make that decision later. Donald hiccups all the time, but seems to be adjusted to that. He fell asleep a bit while I was talking with him, Cindy and Trista, but then he would wake up again. He asked for some of his milkshake and to have the tv turned on. He was diagnosed with esophageal cancer last October, now how mets to his brain and lung. His prognosis at the time was three months without treatment, and up to a year with treatments, so he chose to have chemotherapy. He missed his last treatment being here. I will continue to visit.
[2023-06-19] MEDS: Zolpidem 5 MG TAB 10 MG PO (21:53)
[2023-06-20] MEDS: LORazepam 2 MG/ML VIAL 0.5 MG IVP (09:11)
--- NOTE | 2023-06-20 10:41 | PGE_ITS ---
Date of Service Date of service: 06/20/23 Time of Service: 10:41 Assessment and Plan Assessment and plan (1) Comfort measures only status: Status: Acute Assessment and plan: -After prolonged and repeated discussions with palliative care, patient and his family ultimately decided to transition to comfort measures only, will stop checking vital signs and labs -We will continue only comfort directed medications -As needed liquid morphine for shortness of breath and IV Ativan for anxiety -We will monitor the patient over the next 24 to 48 hours to determine if he is a candidate for home hospice (2) Septic shock: Status: Ruled-out Assessment and plan: - Jose meets criteria for septic shock with initial presentation of tachycardia with heart rate greater than 100, leukopenia with a white blood cell count of 3.8, respiratory rate of 26, source of infection likely being a pneumonia -He received a total of 2.5 L she is greater then 30 cc/kg and mean arterial pressures remained below 65 -However, upon transfer to the intensive care unit patient's mean arterial pressure has been greater than 70 -Initially started on linezolid and Zosyn in the emergency department -continue Zosyn, however will discontinue linezolid as patient already has mild thrombocytopenia and will also require anticoagulation during hospitalization -continue vancomycin -Follow-up blood and sputum cultures -Lactic acid initially 2.3, decreased to 1.9 on repeat -Patient became febrile early in the morning on 06/18 despite being on vancomycin and Zosyn -Blood cultures have been repeated including 1 set from his port, and his antibiotics have been changed to Merrem and linezolid -We will follow-up repeat cultures (3) Pulmonary edema: Status: Acute Assessment and plan: - Patient experienced worsening hypoxic respiratory failure with increasing oxygen requirements from 2 L up to 15 on nonrebreather -Given increase audible crackles bilaterally chest x-ray was ordered which showed worsening bilateral infiltrates, pulmonary edema versus worsening infection -Given amount of fluids patient is given this is likely pulmonary edema -Ordered 20 mg IV Lasix p.m. on 06/17/2023 with good urine output and improvement in oxygen requirements -However, patient again became significantly hypoxic on the morning of 06/18 and again responded to 20 mg of IV Lasix with roughly 1.5 L of urine output in the subsequent 2 hours -CTA was ordered in order to rule out pulmonary embolus of which none were seen in the main branches -However, what was noted was bilateral symmetrical pulmonary infiltrates and pleural effusions that while could be infectious symmetrical nature of it appeared to be more likely to congestive heart failure -proBNP has been ordered as well as an echocardiogram, and an additional 20 mg of IV Lasix has also been given -patient had low MAP of 64-65 PM 06/18 with ~2.5L UOP since AM lasix dose -recieved 50ml NS/hr for 6 hours and now has MAP >65 Qualifiers: Chronicity: acute Qualified Code(s): J81.0 - Acute pulmonary edema (4) Pneumonia: Status: Acute Assessment and plan: -Likely cause of septic shock as noted above -Treat as noted above Qualifiers: Pneumonia type: due to unspecified organism Laterality: unspecified laterality Lung location: unspecified part of lung Qualified Code(s): J18.9 - Pneumonia, unspecified organism (5) Leukopenia: Status: Acute Assessment and plan: -Likely due to combination of chemotherapy infection as noted above -Follow-up a.m. 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 -Patient was due to receive additional dose of chemotherapy today, will be unable to due to hospitalization -Has been seen by palliative care in the outpatient setting patient wishes to remain a full code -Palliative care consult patient 06/17; patient has now decided to be DNR/DNI with trial of IV antibiotics and IV fluids COLST has been updated Qualifiers: Malignant neoplasm of esophagus location: unspecified location Qualified Code(s): C15.9 - Malignant neoplasm of esophagus, unspecified (7) Unintentional weight loss: Status: Acute Assessment and plan: - Due to esophageal cancer and chemotherapy as noted above Subjective Subjective Interval history since last seen: Patient laying in bed, appears to be in no acute distress Exam Narrative Exam Narrative: Frail, fatigued appearing older gentleman laying in bed in no acute distress, breathing appears to be regular Objective Last Vital Signs Temp 97.5 F L 06/19/23 03:45 Pulse 78 06/19/23 09:01 Resp 16 06/19/23 09:01 BP 98/55 L 06/19/23 09:01 Pulse Ox 92 06/19/23 09:11 Time Spent with Patient Time Spent with Patient: 35-49 minutes Time was spent: preparing to see the patient(eg.review tests), obtaining and/or reviewing separately otained hiistory, referring, communicating with other health hemodialysis patient care specialist, indepentently interpreting results, counseling the patient and care coordination
--- NOTE | 2023-06-20 11:01 | PDOC.CMPRO ---
Date of service: 06/20/23 Time of Service: 11:01 Care Management Progress Note Progress Note Text Progress Note Text: S/O: Blanco transitioned to Comfort Care, PT discharged today. Per Palliative, period of observation to determine imminence is anticipated; with discharge considerations dependent on status. Blanco was sleeping but arousal when CM met with his sisters at the bedside. Reviewed concerns and considerations; Brigida verbalized feeling that Blanco is rapidly declining and no longer feels confident in caring for him at home. She shared concerns about Blanco eating; choking and aspirating. They noted that he really enjoys listening to radio station [employer] [id number]. CM continues to follow. A: 73 year old male admitted 06/16/23 to [facility] for severe sepsis pneumonia P: Blanco will remain on Comfort Care at [facility], dependent on status; revisit discussion on Friday. Robert is family choice for final arrangements. CM continues to follow.
--- NOTE | 2023-06-20 15:02 | PCPN_ITS ---
Date of service: 06/20/23 Time of Service: 15:02 Assessment and Plan Assessment and plan (1) Comfort measures only status: Status: Acute Assessment and plan: Donald transitioned to EDUCATIONAL [employer]ANG[employer] CLINICIAN yesterday. He will transition to MS IV continuous drip today. He is having more difficulty swallowing and his family is concerned that he is less comfortable this afternoon than he was earlier today. He is sleeping but responds briefly to verbal & tactile stimuli. His oncologist visited today and explained to him that he is no longer a candidate for treatment due to functional status. His life expectancy is measured in hours to days, less likely weeks. Palliative will continue to follow. Subjective Subjective Interval history since last seen: Donald was seen yesterday with his sisters present. The decision was made to transition to EDUCATIONAL SPEE[employer] LANGUAGE CLINICIAN. There was question whether he would remain here at [facility] through the end of life or if he would transition home on hospice. He was seen for f/u visit today. He is getting MS oral solution on a scheduled basis. He is on O2 via nc. His sisters were present again today. Cindy has been with him since 7am. She reports that he appeared comfortable earlier but his breathing appears slightly more labored and he is moaning at times. He is also having more difficulty swallo wing. He awakened and opened his eyes briefly at times during the visit when prompted. He denies pain. Discussed the option of switching to IV morphine drip. His sisters agree and feel it would provide more comfort for him. Cindy has concerns about him eating/swallowing. He has had several choking episodes r/t the esophageal cancer which have been scary for him. Reviewed that he will not be given food if he is not awake and alert enough to eat/swallow. He does not appear to be alert enough to take PO at this time. His oncologist, Dr. Davidson visited him today from [facility]. Dr. Davidson explained to Donald that he would no longer offer treatment due to his functional status. Cindy was present and states that Donald understood Dr. Davidson clearly. Cindy felt that it was important that this came from Dr. Davidson, who has been following him for 8 months. Exam Narrative Exam Narrative: General: elderly man, laying in the hospital bed. He slept through most of the visit but opened his eyes to verbal and tactile stimuli. He was able to answer closed ended questions with brief answer and went back to sleep. He is warm to touch. HEENT: normocephalic, atraumatic, EOMI, mm dry. Respiratory: wearing O2 via nc, respirations appear unlabored at rest. : swain draining small amounts of dark yellow urine. Objective Last Vital Signs Temp 36.4 C L 06/19/23 03:45 Pulse 78 06/19/23 09:01 Resp 16 06/19/23 09:01 BP 98/55 L 06/19/23 09:01 Pulse Ox 92 06/19/23 09:11
[2023-06-21] MEDS: Normal Saline Flush 10 ML SYR IVP ×2 (14:53→16:05)
[2023-06-21] MEDS: Scopolamine 1 MG/3 DAYS PATCH TD (14:53)
[2023-06-21] MEDS: Glycopyrrolate 0.2 MG/1 ML VIAL IVP (14:53)
[2023-06-21] MEDS: HYDROmorphone 100 MG in Normal Saline 240 ML IV (16:04)
--- NOTE | 2023-06-21 17:19 | W.PM.PROGNOT ---
Date of Service Date of service: 06/21/23 Time of Service: 17:19 Assessment and Plan Assessment and plan (1) Comfort measures only status: Status: Acute Assessment and plan: continue comfort measures transitioned from morphine to dilaudid drip with symptoms well managed. prn robinol and scopolamine for symptom management. Palliative will continue to follow. discussed with DR Hummel Subjective Subjective Interval history since last seen: remains unresponsive. Exam Narrative Exam Narrative: resting quietly in bed in no acute distress, obtunded, respirations even and unlabored. Objective Last Vital Signs Temp 36.4 C L 06/19/23 03:45 Pulse 78 06/19/23 09:01 Resp 16 06/19/23 09:01 BP 98/55 L 06/19/23 09:01 Pulse Ox 92 06/19/23 09:11 Time Spent with Patient Time Spent with Patient: <25 minutes Time was spent: preparing to see the patient(eg.review tests) and obtaining and/or reviewing separately [email or web address] thompson
[2023-06-22 10:48] VITALS: TEMP 38.1
[2023-06-22 11:41] VITALS: TEMP 36.5
--- NOTE | 2023-06-22 14:20 | W.PM.PROGNOT ---
Date of Service Date of service: 06/22/23 Time of Service: 14:20 Assessment and Plan Assessment and plan (1) Comfort measures only status: Status: Acute Assessment and plan: continue comfort measures, family at bedside continue dilaudid drip and prn dylaninol for symptom management. Palliative will continue to follow. discussed with DR Hummel Subjective Subjective Interval history since last seen: remains obtunded. Exam Narrative Exam Narrative: resting quietly in bed in no acute distress, obtunded, respirations even and unlabored. Objective Last Vital Signs Temp 36.5 C 06/22/23 11:41 Pulse 78 06/19/23 09:01 Resp 16 06/19/23 09:01 BP 98/55 L 06/19/23 09:01 Pulse Ox 92 06/19/23 09:11 Time Spent with Patient Time Spent with Patient: <25 minutes Time was spent: preparing to see the patient(eg.review tests)
[2023-06-22] MEDS: LORazepam 2 MG/ML VIAL 0.5 MG IVP (17:36)
[2023-06-23] MEDS: LORazepam 2 MG/ML VIAL 0.5 MG IVP ×2 (00:15→10:19)
--- NOTE | 2023-06-23 14:44 | W.PM.DDS ---
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 He was found to be in septic shock, source pneumonia.. He received IV boluses and broad-spectrum antibiotics. He did require Levophed and was admitted to intensive care unit for further management. Lactic acid followed and slowly trending downward. Blood cultures were pending. He was due to receive a dose of chemotherapy on day of admission but did not because of the hospitalization. He has been followed by palliative care and a consult was placed. Plan and COLST form reviewed with patient and family and patient changed from full code to DNR/DNI with trial of IV fluids and antibiotics. His oncologist Dr. Davidson was following along with the patient's care and did note that he had missed several treatments recently due to weakness thrombocytopenia etc. and felt that he would not be able to offer any more cancer treatment at this point. During the hospitalization he remained very weak and short of breath and required high flow oxygen. His oral intake was very poor. Ongoing goals of care with palliative continued. Ultimately family and patient decided to transition to comfort care only. All antibiotics and fluids were stopped and he was transition to comfort care plan was to remain here for end-of-life care. Ultimately on June 23 at 1434 patient succumbed to his sepsis and pneumonia. Discharge Data Discharge Date/Time-TO BE ENTERED AT DEPARTURE: 06/23/23 14:35 Discharge Sum: Prov Provider Consults: 06/17/23 08:39 Palliative Care Consult [CONS] Routine Consultation Status:: Follow-up needed Clarification:: Manage/follow per spec. Reason for consult:: Seen as outpatient, had outpatient f/u appt today. Discharge Sum: Diag Contributing Factors (1) Comfort measures only status:
--- NOTE | 2023-06-23 17:27 | NUR.NOTE ---
Nursing Note: Family member at nursing station states, I think my brother passed. No apical pulse auscultated by this medical writer and clinical coordinator, Gypsy. Time of 14:34.
== END 2023-06-23 14:35 | disposition expired | DRG 871 ==
LOC: ER 13:09 → MS 13:12 → ICU 16:12 → MS 06-19 13:51
PROVIDERS: Admitting Provider Family Medicine; Emergency Provider Student in an Organized Health Care Education/Training Program; PCP Family Medicine; Visit Provider Family Medicine
DX: A41.9 Sepsis, unspecified organism (principal); J18.9 Pneumonia, unspecified organism; R65.21 Severe sepsis with septic shock; J81.0 Acute pulmonary edema; J96.01 Acute respiratory failure with hypoxia; C15.9 Malignant neoplasm of esophagus, unspecified; C78.01 Secondary malignant neoplasm of right lung; C78.02 Secondary malignant neoplasm of left lung; C79.31 Secondary malignant neoplasm of brain; D72.819 Decreased white blood cell count, unspecified; R63.5 Abnormal weight gain; Z68.24 Body mass index [BMI] 24.0-24.9, adult; R13.10 Dysphagia, unspecified; Z91.81 History of falling; D69.6 Thrombocytopenia, unspecified; W18.39XA Other fall on same level, initial encounter; F32.A Depression, unspecified; J84.10 Pulmonary fibrosis, unspecified; Z66 Do not resuscitate; Z51.5 Encounter for palliative care; I50.9 Heart failure, unspecified
CPT/HCPCS: 00123; 36415; 36591; 71275; 80048; 80053; 82805; 85027; 87040; 87637; 93005; 96365; 96368; 97162; 97530; 99285; J1650; 36600; 70450; 71045; 71046; 81003; 81015; 83605; 83735; 83880; 84439; 84443; 84484; 85025; 87086; 93010; 93306; 99223; 99232; 99233; 99291; J0131; J1170; J1941; J2020; J2060; J2270; J2543; J3490